=== PATIENT | female | born 1970 | race Caucasian/White ===

== ENCOUNTER 2023-01-06 08:05 | Emergency (ER) | payer MEDICAID, SELFPAY ==
--- NOTE | ~2023-01-06 | CT_ITS ---
EXAMINATION: CT ankle RT wo con DATE: 01/06/2023 09:20 INDICATION: Right ankle pain. TECHNIQUE: Computed tomography (CT) of the right ankle was performed without intravenous contrast. Au tomated exposure control and iterative reconstruction technique were employed. The dose-length produc t was 371.99 mGy-cm. COMPARISON: Right ankle radiographs 01/06/2023 FINDINGS: Bone alignment is normal. There is a nondisplaced chip fracture of lateral process of talus . There is mild midfoot osteoarthritis. There is mild ankle joint osteoarthritis. There are enthesoph ytes of distal fibula at the attachment of the anterior and posterior tibiofibular ligaments. There i s enlargement of the groove for the peroneal tendons in distal fibula with osteophytes. Peroneus long us tendon is enlarged, consistent with partial tear. Achilles tendon is enlarged. There are enthesoph ytes at the posterior and plantar aspects of calcaneal tuberosity. 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 IMPRESSION: 1. Nondisplaced chip fracture of lateral process of talus. 2. Mild polyarticular osteoarthritis. 3. Partial tear of peroneus longus tendon. 4. Kim deformity. Reviewed, dictated and finalized at location A. 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
--- NOTE | ~2023-01-06 | XR_ITS ---
EXAMINATION: XR ankle RT min 3V DATE: 01/06/2023 08:31 INDICATION: Lateral right ankle pain. TECHNIQUE: 4 views of right ankle were obtained. COMPARISON: None. FINDINGS: There is a possible nondisplaced fracture of posterior aspect of lateral malleolus seen on one view. There is a possible nondisplaced fracture of lateral process of talus seen on one view. The re is mild midfoot osteoarthritis. There are enthesophytes at the posterior and plantar aspects of ca lcaneal tuberosity. There is soft tissue swelling posterior to calcaneus at the Achilles attachment ( Kim deformity). Ankle soft tissue swelling is noted. IMPRESSION: 1. Possible nondisplaced fracture of posterior aspect of lateral malleolus. Possible nondisplaced fra cture of lateral process of talus. Consider CT. 2. Kim deformity. 3. Mild polyarticular osteoarthritis. Reviewed, dictated and finalized at location A. 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 Possible nondisplaced fracture of posterior aspect of lateral malleolus. Pos sible nondisplaced fracture of lateral process of talus. Consider CT. 2. Kim deformity. 3. Mild polyarticular osteoarthritis.
[2023-01-06 08:05] VITALS: BP 155/102; PULSE 96; RESP 18; TEMP 36.7; O2SAT 99
[2023-01-06 08:12] VITALS: BP 155/102; PULSE 96; RESP 18; TEMP 36.7; O2SAT 99
--- NOTE | 2023-01-06 08:26 | ED.GENADULT ---
HPI - General Adult General Chief complaint: Extremity Injury, Lower Stated complaint: fall right ankle pain Time Seen by Provider: 01/06/23 08:21 History of Present Illness HPI narrative: The patient is a 52-year-old woman who fell down approximately 4 steps yesterday, resulting in pain in the right lateral aspect of her ankle. She has been ambulatory and weight-bearing but the pain is increased. She has taken Tylenol, last dose 3:00 a.m. this morning, 01/06/2023. No other injuries or other complaints. No loss of consciousness. No nausea vomiting. No sensory or motor deficits. No headache. No neck pain. No back pain. Comorbidities include hypertension and a prior [place]. She takes no medications at present Related Data Allergies Allergy/AdvReac Type Severity Reaction Status Date / Time diphenhydramine Allergy Stopped Verified 01/06/23 08:18 [From Benadryl] Breathing Review of Systems Review of Systems: All systems reviewed & are unremarkable except as noted in HPI and below Constitutional: Constitutional: Reports no additional constitutional complaints, Denies anorexia, Denies body ache(s), Denies chills, Denies excessive sweating, Denies fatigue, Denies fever(s), Denies frequent falls, Denies headache(s), Denies malaise and Denies poor appetite Eyes: Eyes: Reports no additional eye complaints, Denies blurry vision, Denies change in vision, Denies irritation, Denies itchy eyes and Denies photophobia ENT: Reports system reviewed and no additional complaints, except as documented, Reports Normal hearing present, Denies change in voice, Denies dysphagia, Denies vertigo, Denies dizziness, Denies ear discharge, Denies headache(s), Denies hearing loss, Denies hoarseness, Denies nasal congestion, Denies neck pain, Denies sinus pressure, Denies sore throat and Denies throat swelling Cardiovascular: Cardiovascular: Reports no additional cardiovascular complaints, Denies chest pain, Denies syncope, Denies rapid heart rate, Denies irregular heart rhythm, Denies leg edema, Denies dyspnea and Denies slow heart rate Respiratory: Respiratory: Reports no additional respiratory complaints, Denies cough, Denies dyspnea, Denies stridor and Denies wheezing Gastrointestinal: Gastrointestinal: Reports no additional gastrointestinal complaints, Denies abdominal pain, Denies melena, Denies hematochezia, Denies dysphagia, Denies diarrhea, Denies nausea and Denies vomiting Genitourinary: Genitourinary: Denies hematuria, Denies urinary frequency, Denies dysuria, Denies flank pain and Denies urinary urgency Musculoskeletal: Musculoskeletal: Reports no additional musculoskeletal complaints, Reports abnormal gait, Denies back pain, Denies myalgias, Reports arthralgias ( right ankle), Reports joint swelling ( right ankle), Denies limited range of motion, Denies muscle cramps, Denies muscle weakness, Denies neck pain and Denies numbness Integumentary/Breasts: Skin/Breast: Reports system reviewed and no additional complaints, except as docu, Denies breast pain, Denies change in pigmentation, Denies pruritus, Denies erythema and Denies wounds Neurologic: Reports system reviewed and no additional complaints, except as documented, Reports Normal hearing present, Denies Abnormal speech present, Denies abnormal gait, Denies confusion, Denies vertigo, Denies dizziness, Denies syncope, Denies frequent falls, Denies headache(s), Denies focal weakness, Denies numbness and Denies paresthesias Psychiatric: Psychiatric: Reports no additional psychiatric complaints and Denies confusion Endocrine: Endocrine: Reports no additional endocrine complaints, Denies cold intolerance, Denies excessive sweating, Denies fatigue and Denies heat intolerance Hematologic/Lymphatic: Hematologic/Lymphatic: Reports no additional hematologic/lymphatic complaints, Denies easy bleeding and Denies easy bruising Allergic/Immunologic: Allergic/Immunologic: Reports no additional allergic/immunologic comp
[2023-01-06] MEDS: ACETAMINOPHEN 500 MG TABLET 1000 MG PO (08:34)
[2023-01-06] MEDS: IBUPROFEN 400 MG TABLET 800 MG PO (08:35)
[2023-01-06 10:23] VITALS: BP 136/96; PULSE 72; RESP 16; O2SAT 97
[2023-01-06 10:58] VITALS: BP 136/96; PULSE 72; RESP 16; TEMP 36.7; O2SAT 97
== END 2023-01-06 11:00 | disposition home or self-care (01) ==
LOC: CHSED 08:55
PROVIDERS: Emergency Provider Emergency Medicine
DX: S92.144A Nondisplaced dome fracture of right talus, initial encounter for closed fracture (principal); S93.401A Sprain of unspecified ligament of right ankle, initial encounter; W10.9XXA Fall (on) (from) unspecified stairs and steps, initial encounter
CPT/HCPCS: 73610; 73700; 99284; A9270

== ENCOUNTER 2023-03-24 17:20 | Emergency (ER) | payer MEDICAID, SELFPAY ==
[2023-03-24 17:26] VITALS: BP 151/100; PULSE 91; RESP 18; TEMP 36.6; O2SAT 99
[2023-03-24 17:34] VITALS: O2SAT 99
--- NOTE | 2023-03-24 17:50 | ED.URI ---
HPI - URI/Sore Throat General Chief Complaint: Upper Respiratory Infection Stated Complaint: SOB/Cough Time Seen by Provider: 03/24/23 17:23 Source: patient and RN notes reviewed Mode of arrival: ambulatory Limitations: no limitations History of Present Illness HPI Narrative: Patient states she had some cough about 2 and half weeks ago and that seemed to resolve. Then 2 days ago she was having some nausea vomiting and that cleared up and she was fine yesterday. Today she had cough began again and had a significant coughing spell and that at the time caused her to feel short of breath and panic because she thought she was going to pass out from the coughing. Since then it is completely resolved and she feels back to baseline. She has no other symptoms. MD elicited complaint: cough Onset (ago): day(s) (2) Consistency: constant Severity: moderate Description of mucous: clear Able to tolerate fluids by mouth: Yes Relieving factors: nothing Associated symptoms: nausea and vomiting (2 days ago) Related Data Home Medications Medication Instructions Recorded Confirmed amlodipine 5 mg tablet 5 mg PO DAILY 03/24/23 03/24/23 Allergies Allergy/AdvReac Type Severity Reaction Status Date / Time diphenhydramine Allergy Stopped Verified 03/24/23 17:35 [From Benadryl] Breathing Review of Systems Constitutional: Constitutional: Denies chills and Denies fever(s) ENT: Denies dizziness and Denies nasal congestion Gastrointestinal: Gastrointestinal: Denies diarrhea Musculoskeletal: Musculoskeletal: Denies myalgias Neurologic: Denies headache(s) Exam Const: General: healthy appearing and no acute distress Nutritional Appearance: well nourished and obese Orientation/consciousness: patient oriented x3 Limitations: no limitations Other: Female tech in room during examination. HENMT: Head: normal to inspection Ears: external ears normal Face/Nose/Sinus: Normal external nose present Face and sinus: normal facial exam Mouth: Yes moist mucous membranes Eyes: Conjunctivae: conjunctivae normal Pupils: Equal, round and reactive pupils present EOM: EOMs intact bilaterally Neck: Neck: normal visual inspection Resp: Effort & Inspection: normal respiratory effort Auscultation: clear to auscultation bilaterally Cardio: Rate: regular rate Rhythm: regular rhythm GI: GI Palp: Yes Soft to palpation and No Tenderness to palpation present (GI) Auscultation: normal bowel sounds Back/Spine/Pelvis: Cervical Spine: cervical ROM normal Thoracic/Lumbar Spine: thoraco-lumbar ROM normal Skin: General skin exam: normal color Rashes: no rashes Neuro: General: patient oriented x3, moves all extremities, no focal motor deficits and CN's II-XI intact bilaterally Speech: normal speech Gait exam (Neuro): Normal gait present Extrem: General: normal to inspection and no clubbing, cyanosis or edema Psych: Mental Status: mental status grossly normal Affect: normal affect Attitude: cooperative Course Vital Signs Vital signs: Vital Signs Temperature 36.6 C 03/24/23 17:26 Pulse Rate 91 03/24/23 17:26 Respiratory Rate 18 03/24/23 17:26 Blood Pressure 151/100 H 03/24/23 17:26 Pulse Oximetry 99 03/24/23 17:26 Oxygen Delivery Room Air 03/24/23 17:26 Temperature 36.6 C 03/24/23 17:26 Pulse Rate 91 03/24/23 17:26 Respiratory Rate 18 03/24/23 17:26 Blood Pressure 151/100 H 03/24/23 17:26 Pulse Oximetry 99 03/24/23 17:34 Oxygen Delivery Room Air 03/24/23 17:34 MDM - URI/Sore Throat Differential Diagnosis Differential diagnosis: Likely upper respiratory infection, viral infection, bronchitis, influenza and other ( COVID) Lab Data Labs: Lab Results 03/24/23 Range/Units 17:23 Influenza A (RT-PCR) Pending Influenza B (RT-PCR) Pending Discharge Plan Discharge Clinical Impression: Upper respiratory infection Qualifiers: URI type: acute nasopharyngitis (co
--- NOTE | 2023-03-24 17:58 | PC.NURSE ---
accompanied dr with patient assessment
[2023-03-24 18:08] LABS: Influenza A QL RT-PCR Negative (Negative); Influenza B QL RT-PCR Negative (Negative); SARS-CoV-2 RNA PCR Negative (Negative)
[2023-03-24 18:20] VITALS: BP 156/98; PULSE 86; RESP 20; TEMP 36.9; O2SAT 99
== END 2023-03-24 18:21 | disposition home or self-care (01) ==
PROVIDERS: Emergency Provider Emergency Medicine
DX: J00 Acute nasopharyngitis [common cold] (principal); Z20.822 Contact with and (suspected) exposure to COVID-19
CPT/HCPCS: 87636; 99283

== ENCOUNTER 2023-03-29 14:20 | Outpatient (CLI) | payer OTHER, SELFPAY ==
[2023-03-29 14:32] LABS: Basophils Absolute Auto 0.05 K/mm3 (0.00-0.10); Basophils Percent Auto 0.6 % (0.0-1.0); Eosinophils Absolute Auto 0.17 K/mm3 (0.02-0.50); Eosinophils Percent Auto 2.2 % (1.0-6.0); Hematocrit 40.1 % (35.0-49.0); Hemoglobin 13.4 g/dL (12.0-15.0); Immature Granulocyte Absolute 0.04 K/mm3 (0.00-0.00); Immature Granulocyte Percent A 0.5 % (0.0-0.0); Lymphocytes Absolute Auto 2.07 K/mm3 (1.10-4.50); Lymphocytes Percent Auto 26.7 % (18.0-42.0); Mean Corpuscular HGB Conc 33.4 g/dL (32.0-36.0); Mean Corpuscular Hemoglobin 29.2 pg (27.0-31.0); Mean Corpuscular Volume 87.4 fL (78.0-102.0); Mean Platelet Volume 9.8 fl (9.2-11.8); Monocytes Absolute Auto 0.47 K/mm3 (0.10-0.90); Monocytes Percent Auto 6.1 % (2.0-11.0); Neutrophils Absolute Auto 4.9 K/mm3 (1.7-7.2); Neutrophils Percent Auto 63.9 % (50.0-70.0); Platelet Count Result 270 K/mm3 (150-420); Red Blood Count 4.59 M/mm3 (4.20-5.40); Red Cell Distribution Width 12.9 % (11.6-14.4); White Blood Count 7.7 K/mm3 (4.8-10.8)
[2023-03-29 15:24] LABS: Alanine Aminotransferase 31 U/L (14-59); Albumin Level 3.4 g/dL (3.4-5.0); Alkaline Phosphatase 117 U/L (46-116); Anion Gap 10 mmol/L (8-16); Aspartate Amino Transferase 20 U/L (15-37); Bilirubin,Total 0.6 mg/dL (0.00-1.00); Blood Urea Nitrogen 14 mg/dL (7-18); Calcium 8.6 mg/dL (8.5-10.1); Carbon Dioxide 28 mmol/L (21-32); Chloride 103 mmol/L (98-108); Cholesterol 183 mg/dL (0-200); Estimated Glomerular Filt Rate 56; Free T4 Free Thyroxine 1.08 ng/dL (0.76-1.46); Glucose 104 mg/dL (70-99); HDL Direct 43 mg/dL (40-60); LDL Cholesterol Calculated 113 mg/dL (<130); Osmolality Calculated 292 mOsm/kg (285-295); Potassium 3.7 mmol/L (3.5-5.1); Sodium 141 mmol/L (136-145); Thyroid Stimulating Hormone 2.03 uIU/mL (0.36-3.74); Triglycerides 133 mg/dL (0-150)
[2023-04-02 19:24] LABS: Vitamin D 25 Hydroxy 8 ng/mL (30-100)
== END 2023-03-29 14:21 | disposition home or self-care (01) ==
LOC: CHSLAB 14:21
PROVIDERS: PCP Nurse Practitioner Family; Visit Provider Nurse Practitioner Family
DX: F41.9 Anxiety disorder, unspecified (principal); F32.A Depression, unspecified; I10 Essential (primary) hypertension; Z79.899 Other long term (current) drug therapy
CPT/HCPCS: 36415; 80053; 80061; 82306; 84439; 84443; 85025

== ENCOUNTER 2023-04-11 14:07 | Outpatient (CLI) | payer OTHER, SELFPAY ==
--- NOTE | ~2023-04-11 | MM_ITS ---
EXAMINATION: MM screening [facility] BI w jabari HISTORY: Baseline screening mammogram TECHNIQUE: Craniocaudal and mediolateral oblique 3-D tomosynthesis images were obtained and synthetic 2-D images were generated. CAD analysis was submitted and interpreted. COMPARISON: None, baseline BREAST PARENCHYMAL COMPOSITION: The breasts are almost entirely fatty. FINDINGS: RIGHT BREAST: There is a possible mass in the anterior third of the upper inner breast approximately 4 cm from the nipple. LEFT BREAST: No suspicious mass, calcification, or architectural distortion are identified to suggest malignancy. IMPRESSION: 1. Possible right breast mass. 2. Additional mammographic views and possible breast ultrasound are recommended to evaluate the possi ble right breast mass and establish a baseline given that this is the first mammographic examination. BI-RADS Category 0: Incomplete: Needs additional imaging evaluation. Reviewed, dictated and finalized at location A. IMPRESSION: 1. Possible right breast mass. 2. Additional mammographic views and possible breast ultrasound are recommended to evaluate the possible right breast mass and establish a baseline given that this is the first mammographic examination. BI-RADS Category 0: Incomplete: Needs additional imaging evaluation.
== END 2023-04-11 14:08 | disposition home or self-care (01) ==
LOC: CHSIMG 14:09
PROVIDERS: PCP Nurse Practitioner Family; Visit Provider Nurse Practitioner Family
DX: Z12.31 Encounter for screening mammogram for malignant neoplasm of breast (principal); R92.8 Other abnormal and inconclusive findings on diagnostic imaging of breast
CPT/HCPCS: 77063; 77067

== ENCOUNTER 2023-04-18 08:50 | Outpatient (CLI) | payer OTHER, SELFPAY ==
--- NOTE | ~2023-04-18 | MMUS_ITS ---
EXAMINATION: MM diagnostic gabriele RT w jabari, US breast RT limited HISTORY: Possible right breast mass on screening mammogram TECHNIQUE: Additional 3-D tomosynthesis images of the right breast were performed and synthetic 2-D i mages were generated. CAD analysis was submitted and interpreted. High resolution limited right breas t ultrasound was performed. COMPARISON: 04/11/2023 FINDINGS: MAMMOGRAPHIC FINDINGS: There is a 3 mm low-density mass with indistinct margins in the middle third of the upper breast at t he 12:00 location, 5 cm from the nipple. No suspicious calcification or architectural distortion are identified. ULTRASOUND: There is no evidence of focal abnormal solid or cystic mass in the vicinity of the mammographic findi ng in question. IMPRESSION: 1. Probably benign right breast mass. 2. Recommend 6 month follow-up right diagnostic mammogram and possible ultrasound. BI-RADS category 3, probably benign findings. Reviewed, dictated and finalized at location A. IMPRESSION: 1. Probably benign right breast mass. 2. Recommend 6 month follow-up right diagnostic mammogram and possible ultrasou nd. BI-RADS category 3, probably benign findings.
== END 2023-04-18 08:51 | disposition home or self-care (01) ==
LOC: CHSIMG 08:51
PROVIDERS: PCP Nurse Practitioner Family; Visit Provider Nurse Practitioner Family
DX: R92.8 Other abnormal and inconclusive findings on diagnostic imaging of breast (principal); Z87.898 Personal history of other specified conditions
CPT/HCPCS: 76642; 77061; 77065; G0279

== ENCOUNTER 2023-04-21 16:08 | Emergency (ER) | payer OTHER, SELFPAY ==
--- NOTE | ~2023-04-21 | XR_ITS ---
EXAMINATION: XR hip LT 2V w AP pelvis DATE: 04/21/2023 17:34 INDICATION: Left hip pain. TECHNIQUE: An anteroposterior view of the pelvis and 2 views of left hip were obtained. COMPARISON: None. FINDINGS: There is normal. No fracture. There is mild osteoarthritis of the hips. There is at least m ild lumbar spondylosis. IMPRESSION: 1. Mild osteoarthritis of the hips. Reviewed, dictated and finalized at location E.
[2023-04-21 16:11] VITALS: BP 149/97; PULSE 92; RESP 18; TEMP 36.6; O2SAT 97
--- NOTE | 2023-04-21 16:11 | ED.GENADULT ---
HPI - General Adult General Chief complaint: Extremity Injury, Lower Stated complaint: left hip pain Time Seen by Provider: 04/21/23 16:10 History of Present Illness HPI narrative: the patient is a 52-year-old woman with history of hypertension migraine headaches anxiety depression myocardial infarction mild chronic kidney disease, and osteoarthritis. Last laboratory data from 03/29/2023 reveal a normal BUN and creatinine however. Did have a closed fracture of the right ankle that was treated with casting. For the last week, the patient has had pain in the left posterior hip region, radiating to the left posterior back and anteriorly to the left hip, worse with raising the left leg or ambulation. No paresthesias or sensory deficits down the left lower extremity. No direct trauma to the left hip or back. No heavy lifting. No falls. No twists or turns. No previous similar history. No pain in the lower back or neck. No numbness or tingling in the buttocks region. No saddle anesthesia. Related Data Home Medications Medication Instructions Recorded Confirmed sertraline 25 mg tablet 50 mg PO DAILY 04/21/23 Allergies Allergy/AdvReac Type Severity Reaction Status Date / Time diphenhydramine Allergy Stopped Verified 04/21/23 17:03 [From Benadryl] Breathing Review of Systems Review of Systems: All systems reviewed & are unremarkable except as noted in HPI and below Constitutional: Constitutional: Denies chills, Denies excessive sweating, Denies fatigue, Denies fever(s), Denies headache(s) and Denies weakness Eyes: Eyes: Denies change in vision and Denies photophobia ENT: Denies dysphagia, Denies dizziness, Denies headache(s), Denies lip swelling, Denies nasal congestion, Denies sore throat and Denies tongue swelling Cardiovascular: Cardiovascular: Denies chest pain, Denies syncope, Denies rapid heart rate and Denies dyspnea Respiratory: Respiratory: Denies cough, Denies dyspnea and Denies wheezing Gastrointestinal: Gastrointestinal: Denies abdominal pain, Denies constipation, Denies dysphagia, Denies diarrhea, Denies nausea and Denies vomiting Genitourinary: Genitourinary: Denies hematuria, Denies urinary frequency, Denies dysuria and Denies urinary urgency Musculoskeletal: Musculoskeletal: Denies back pain, Denies myalgias, Reports arthralgias ( Left hip), Denies joint swelling and Denies numbness Integumentary/Breasts: Skin/Breast: Denies pruritus, Denies erythema and Denies rash Neurologic: Denies confusion, Denies dizziness, Denies syncope, Denies headache(s), Denies focal weakness, Denies numbness and Denies weakness Psychiatric: Psychiatric: Denies anxiety and Denies confusion Endocrine: Endocrine: Denies excessive sweating and Denies fatigue Hematologic/Lymphatic: Hematologic/Lymphatic: Denies easy bleeding and Denies easy bruising Allergic/Immunologic: Allergic/Immunologic: Denies lip swelling, Denies tongue swelling and Denies wheezing PMFSH Past Medical History Medical History Anxiety and depression History of heart attack 2009 HTN (hypertension) Migraine Social History Social History Smoking status: Never smoker Exam Const: General: healthy appearing, no acute distress, alert and well nourished Nutritional Appearance: well nourished Orientation/consciousness: patient oriented x3 Limitations: no limitations HENMT: Head: normal to inspection Ears: external ears normal Face/Nose/Sinus: normal facial exam Face and sinus: normal facial exam Mouth: Yes moist mucous membranes Throat: posterior oropharynx normal Eyes: Conjunctivae: conjunctivae normal Pupils: Equal, round and reactive pupils present EOM: EOMs intact bilaterally Neck: Neck: normal visual inspection and no meningeal signs Chest: Chest palpation & inspection: normal inspection of the chest and no tenderness Re
[2023-04-21] MEDS: KETOROLAC (*BKC) 60 MG/2 ML VIAL IM (17:06)
[2023-04-21] MEDS: traMADol HCL (*CRX) 50 MG TABLET PO (17:06)
[2023-04-21] MEDS: ORPHENADRINE CITRATE 30 MG/ML 2 ML VIAL 60 MG IM (17:07)
[2023-04-21 18:15] VITALS: BP 140/80; PULSE 78; RESP 20; TEMP 36.8; O2SAT 97
== END 2023-04-21 18:21 | disposition home or self-care (01) ==
PROVIDERS: Emergency Provider Emergency Medicine; PCP Nurse Practitioner Family
DX: M25.552 Pain in left hip (principal); M16.12 Unilateral primary osteoarthritis, left hip; I10 Essential (primary) hypertension; F41.8 Other specified anxiety disorders; I25.2 Old myocardial infarction; Z79.51 Long term (current) use of inhaled steroids
CPT/HCPCS: 73502; 96372; 99284; A9270; J1885; J2360

== ENCOUNTER 2023-04-27 15:19 | Outpatient (CLI) | payer OTHER, SELFPAY ==
[2023-04-30 05:22] LABS: Vitamin D 25 Hydroxy 30 ng/mL (30-100)
== END 2023-04-27 15:20 | disposition home or self-care (01) ==
LOC: CHSLAB 15:20
PROVIDERS: PCP Nurse Practitioner Family; Visit Provider Nurse Practitioner Family
DX: M25.50 Pain in unspecified joint (principal)
CPT/HCPCS: 36415; 82306

== ENCOUNTER 2023-06-29 16:20 | Outpatient (CLI) | payer SELFPAY ==
[2023-07-03 09:48] LABS: TB Skin Test Interpretation Unable to Read (Negative); TB Skin Test Site Left Arm
== END 2023-06-29 16:21 | disposition home or self-care (01) ==
LOC: CHSLAB 16:22
PROVIDERS: PCP Nurse Practitioner Family; Visit Provider Nurse Practitioner Family
DX: Z02.1 Encounter for pre-employment examination (principal)
CPT/HCPCS: 36415; 86580

== ENCOUNTER 2023-08-17 20:54 | Emergency (ER) | payer OTHER, SELFPAY ==
--- NOTE | ~2023-08-17 | XR_ITS ---
XR chest 1V portable DATE: 08/17/2023 21:49 INDICATION: Chest pain TECHNIQUE: Portable upright AP chest on 08/17/2023 at 2144 COMPARISON: None FINDINGS: Normal heart size. No hilar or mediastinal enlargement. No pulmonary infiltrate or consolid ation, pleural effusion or pulmonary vascular congestion or pneumothorax. Surgical clips overlie the right upper quadrant, consistent with cholecystectomy. Degenerative spurring of the thoracic spine IMPRESSION: No active cardiopulmonary disease Status post cholecystectomy Reviewed, dictated and finalized at location A.
--- NOTE | 2023-08-17 20:59 | ECG_ITS ---
Measurements Intervals [place] Rate: 83 P: 39 ND: 157 QRS: 44 QRSD: 112 T: 34 QT: 385 QTc: 453 Interpretive Statements SINUS RHYTHM BORDERLINE ECG NO PREVIOUS ECG AVAILABLE FOR COMPARISON Electronically Signed On 08-18-2023 7:54:34 CDT by Dereje Cabello D.O.
[2023-08-17 21:00] VITALS: BP 161/89; PULSE 85; PULSE 86; RESP 18; TEMP 36.7; O2SAT 100
[2023-08-17] MEDS: ASPIRIN 81 MG CHEWABLE TABLET 324 MG PO (21:15)
[2023-08-17 21:27] VITALS: BP 162/88; PULSE 83; RESP 16; O2SAT 100
[2023-08-17] MEDS: NITROGLYCERIN SL 0.4 MG TABLET SUBLINGUAL (21:28)
[2023-08-17 21:33] VITALS: BP 95/57; PULSE 61; RESP 18; O2SAT 99
[2023-08-17] MEDS: ONDANSETRON INJ 4 MG/2 ML VIAL IV PUSH (21:34)
[2023-08-17 21:35] LABS: Basophils Absolute Auto 0.04 K/mm3 (0.00-0.10); Basophils Percent Auto 0.5 % (0.0-1.0); Eosinophils Absolute Auto 0.12 K/mm3 (0.02-0.50); Eosinophils Percent Auto 1.6 % (1.0-6.0); Hematocrit 42.3 % (35.0-49.0); Hemoglobin 13.9 g/dL (12.0-15.0); Immature Granulocyte Absolute 0.04 K/mm3 (0.00-0.00); Immature Granulocyte Percent A 0.5 % (0.0-0.0); Immature Platelet Fraction Pct 3.8 % (1.0-7.0); Lymphocytes Absolute Auto 2.44 K/mm3 (1.10-4.50); Lymphocytes Percent Auto 31.6 % (18.0-42.0); Mean Corpuscular HGB Conc 32.9 g/dL (32.0-36.0); Mean Corpuscular Hemoglobin 29.9 pg (27.0-31.0); Monocytes Absolute Auto 0.44 K/mm3 (0.10-0.90); Monocytes Percent Auto 5.7 % (2.0-11.0); Neutrophils Absolute Auto 4.7 K/mm3 (1.7-7.2); Neutrophils Percent Auto 60.1 % (50.0-70.0); Red Blood Count 4.65 M/mm3 (4.20-5.40); Red Cell Distribution Width 12.4 % (11.6-14.4); White Blood Count 7.7 K/mm3 (4.8-10.8)
[2023-08-17 21:36] LABS: Platelet Count Result 78 K/mm3 (150-420)
[2023-08-17] MEDS: SODIUM CHLORIDE 0.9% IV 1,000 ML 999 ML IV CONT (21:39)
[2023-08-17 21:47] LABS: D Dimer 0.45 mg/L (0.19-0.50); Prothrombin Time 10.9 Seconds (9.50-12.10)
[2023-08-17 21:50] VITALS: BP 146/85; PULSE 71; RESP 16; O2SAT 100
[2023-08-17 21:57] LABS: Alanine Aminotransferase 24 U/L (14-59); Albumin Level 3.4 g/dL (3.4-5.0); Alkaline Phosphatase 134 U/L (46-116); Anion Gap 11 mmol/L (8-16); Aspartate Amino Transferase 22 U/L (15-37); Bilirubin,Total 0.9 mg/dL (0.00-1.00); Blood Urea Nitrogen 16 mg/dL (7-18); Calcium 9.3 mg/dL (8.5-10.1); Carbon Dioxide 22 mmol/L (21-32); Chloride 104 mmol/L (98-108); Estimated Glomerular Filt Rate 58; Glucose 101 mg/dL (70-99); Lipase 25 U/L (16-77); NT Pro B Type Natriuretic Pept 46 pg/mL (0-125); Osmolality Calculated 285 mOsm/kg (285-295); Potassium 4.4 mmol/L (3.5-5.1); Sodium 137 mmol/L (136-145)
[2023-08-17 22:00] LABS: Troponin I < 4.0 ng/L (0.00-60.4)
[2023-08-17 22:32] VITALS: BP 148/85; PULSE 73; RESP 16; O2SAT 98
--- NOTE | 2023-08-17 22:36 | PC.NURSE ---
2235-video game script writer at bedside, pt c/o right arm rash. pt noted to have welted rash to right forearm. pt denies previous allergy to tapes/adhesives. pt ivf completed. iv assessed, flushes without difficulty, pain, swelling. iv remains patent. arm washed with towel. and cool water. video game script writer encouraged pt to use restroom and collect urine sample. pt agrees. pt noted to be ambulatory to and from restroom with steady gait, and without incident.
[2023-08-17 22:55] LABS: Appearance Urine Clear (Clear); Bilirubin Urine Negative (Negative); Blood Urine Negative (Negative); Color Urine Light Yellow (Yellow); Glucose Urine UA Negative (Negative); Ketones Urine Negative (Negative); Leukocyte Esterase Ur 3+ LEU/UL (Negative); Nitrate Urine Negative (Negative); Protein Urine Negative (Negative); Urobilinogen Urine 0.2 mg/dL (0.2-1.0)
[2023-08-17 23:02] LABS: Add Urine Microscopic? YES; Bacteria Urine 1+ /hpf; RBC Urine 0-2 /hpf (0-2); Squamous Epithelial Cell Urine Rare /hpf (Few); WBC Urine 16-20 /hpf (0-3)
[2023-08-17 23:06] VITALS: BP 144/82; PULSE 74; RESP 14; O2SAT 98
--- NOTE | 2023-08-17 23:06 | PC.NURSE ---
2300-underwriter solicitation director at bedside to for chest pain and right arm reassessment. pt denies chest pain/pressure at this time. pt right forearm noted to have decreased welt size/amount. pt denies any additional issues, call light remains in reach. pt daughter remains present at bedside.
[2023-08-17 23:33] LABS: Troponin I < 4.0 ng/L (0.00-60.4)
--- NOTE | 2023-08-17 23:46 | ED.CHESTPAIN ---
HPI - Chest Pain General Chief Complaint: Chest Pain Stated Complaint: chest pain Time Seen by Provider: 08/17/23 20:59 Source: patient and family Mode of arrival: ambulatory Limitations: no limitations History of Present Illness HPI narrative: this is 52-year-old female presented with chest pain that started earlier this afternoon episodic midsternal with nonradiating did have some nausea no shortness of breath no fever chills no cough or congestion. The patient states that she had a prior cardiac catheterization and there was no occlusion that was in 2008. Has a history of high blood pressure no abdominal pain no flank pain does have some dysuria no hematuria. complaint: chest pain and chest discomfort Onset (ago): hour(s) Timing of current episode: episodic Prior episodes: Yes Onset: during rest Pain location: parasternal Pain radiation: none Severity: moderate Pain scale (0-10): 6 Related Data Allergies Allergy/AdvReac Type Severity Reaction Status Date / Time diphenhydramine Allergy Stopped Verified 06/29/23 15:56 [From Benadryl] Breathing Review of Systems Review of Systems: All systems reviewed & are unremarkable except as noted in HPI and below PMFSH Past Medical History Medical History Anxiety and depression History of heart attack 2008 HTN (hypertension) Migraine Social History Social History Smoking status: Never smoker Exam Const: General: cooperative, comfortable, no acute distress and well developed HENMT: Head: normal to inspection Face/Nose/Sinus: Normal external nose present Eyes: General: appearance normal, both eyes and all related structures Chest: Chest palpation & inspection: normal inspection of the chest and normal palpation of entire chest wall Resp: Effort & Inspection: normal respiratory effort and able to speak in complete sentences Auscultation: clear to auscultation bilaterally Cardio: Jugular venous distension: no JVD Palpation: normal PMI Rate: regular rate Rhythm: regular rhythm GI: Inspection: normal to inspection : General: Yes bimanual renal exam normal bilaterally Back/Spine/Pelvis: Back: no CVA tenderness Skin: General skin exam: normal color and no rashes or lesions noted Neuro: General: oriented to person, oriented to place and oriented to time Psych: Appearance: grossly normal Mental Status: mental status grossly normal Course Course Emergency Course: EKG normal sinus rhythm and 2 troponins both were negative and lab work unremarkable did have urinalysis showed that she urinary tract infection. Chest x-ray was reviewed and no acute cardiopulmonary abnormalities. Patient did receive a dose of sublingual nitro which brought her pain level down and currently completely pain-free. Vital Signs Vital signs: Vital Signs Temperature 36.7 C 08/17/23 21:00 Pulse Rate 86 08/17/23 21:00 Respiratory Rate 18 08/17/23 21:00 Blood Pressure 161/89 H 08/17/23 21:00 Pulse Oximetry 100 08/17/23 21:00 Oxygen Delivery Room Air 08/17/23 21:00 Temperature 36.7 C 08/17/23 21:00 Pulse Rate 74 08/17/23 23:06 Respiratory Rate 14 08/17/23 23:06 Blood Pressure 144/82 H 08/17/23 23:06 Pulse Oximetry 98 08/17/23 23:06 Oxygen Delivery Room Air 08/17/23 23:06 MDM - Chest Pain Lab Data 08/17/23 21:28 08/17/23 21:28 Labs: Lab Results 08/17/23 08/17/23 08/17/23 Range/Units 21:28 22:50 23:05 WBC 7.7 (4.8-10.8) K/mm3 RBC 4.65 (4.20-5.40) M/mm3 Hgb 13.9 (12.0-15.0) g/dL Hct 42.3 (35.0-49.0) % MCV 91.0 (78.0-102.0) fL MCH 29.9 (27.0-31.0) pg MCHC 32.9 (32.0-36.0) g/dL RDW 12.4 (11.6-14.4) % Plt Count 78 L (150-420) K/mm3 MPV 11.0 (9.2-11.8) fl Immature Gran % (Auto) 0.5 H (0.0-0.0) % Neut % (Auto) 60.1 (50.0-
[2023-08-18] VITALS: BP 142/86; PULSE 76; RESP 16; O2SAT 96
[2023-08-18] MEDS: NITROFURANTOIN MONOHYD MACROCR 100 MG CAP PO (00:04)
--- NOTE | 2023-08-20 13:40 | PC.NURSE ---
final urine culture report reviewed. no growth. no change in plan of care
== END 2023-08-18 00:10 | disposition home or self-care (01) ==
PROVIDERS: Emergency Provider Emergency Medicine; PCP Nurse Practitioner Family
DX: R07.9 Chest pain, unspecified (principal); N39.0 Urinary tract infection, site not specified; I10 Essential (primary) hypertension; I25.2 Old myocardial infarction
CPT/HCPCS: 36415; 71045; 80053; 81001; 83690; 83880; 84484; 85025; 85055; 85380; 85610; 85730; 87086; 93005; 96361; 96374; 99284; A9270; J2405; J7030

== ENCOUNTER 2023-10-27 08:45 | Outpatient (CLI) | payer OTHER, SELFPAY ==
--- NOTE | ~2023-10-27 | MM_ITS ---
EXAMINATION: MM diagnostic gabriele RT w jabari HISTORY: Six-month follow-up of 3 mm low-density mass with indistinct margins in the middle third of the upper breast 12:00 location TECHNIQUE: ML, MLO and CC 3-D tomosynthesis images of the right breast were performed and synthetic 2 -D images were generated. CAD analysis was submitted and interpreted. COMPARISON: 04/18/2023 diagnostic right mammogram 04/11/2023ilateral screening mammogram BREAST PARENCHYMAL COMPOSITION: The breasts are almost entirely fatty. FINDINGS: There is no significant change of a small approximately 3-4 mm opacity in the mid to upper inner right breast since 04/11/2023. The margins appear circumscribed. There appears to be some centra l fatty density. There is no sonographic correlate on 04/18/2023. This may be a small intramammary lym ph node or other probably benign process. Six-month follow-up right diagnostic mammogram with interva l 12 month screening left mammogram at the same time is recommended. IMPRESSION: 1. Probably benign right breast finding 2. Bilateral mammogram is recommended in 6 months BI-RADS category 3, probably benign findings. Reviewed, dictated and finalized at location A. 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
== END 2023-10-27 08:46 | disposition home or self-care (01) ==
LOC: CHSIMG 08:46
PROVIDERS: PCP Nurse Practitioner Family; Visit Provider Nurse Practitioner Family
DX: R92.8 Other abnormal and inconclusive findings on diagnostic imaging of breast (principal); N63.10 Unspecified lump in the right breast, unspecified quadrant
CPT/HCPCS: 77061; 77065; G0279

== ENCOUNTER 2023-12-26 11:13 | Outpatient (CLI) | payer OTHER, SELFPAY ==
[2023-12-26 11:49] LABS: Basophils Absolute Auto 0.05 K/mm3 (0.00-0.10); Basophils Percent Auto 0.5 % (0.0-1.0); Eosinophils Absolute Auto 0.14 K/mm3 (0.02-0.50); Eosinophils Percent Auto 1.4 % (1.0-6.0); Hematocrit 46.7 % (35.0-49.0); Hemoglobin 14.9 g/dL (12.0-15.0); Immature Granulocyte Absolute 0.03 K/mm3 (0.00-0.00); Immature Granulocyte Percent A 0.3 % (0.0-0.0); Lymphocytes Absolute Auto 2.54 K/mm3 (1.10-4.50); Lymphocytes Percent Auto 24.5 % (18.0-42.0); Mean Corpuscular HGB Conc 31.9 g/dL (32.0-36.0); Mean Corpuscular Hemoglobin 28.5 pg (27.0-31.0); Mean Corpuscular Volume 89.3 fL (78.0-102.0); Monocytes Absolute Auto 0.64 K/mm3 (0.10-0.90); Monocytes Percent Auto 6.2 % (2.0-11.0); Neutrophils Percent Auto 67.1 % (50.0-70.0); Platelet Count Result 259 K/mm3 (150-420); Red Blood Count 5.23 M/mm3 (4.20-5.40); Red Cell Distribution Width 12.5 % (11.6-14.4); White Blood Count 10.4 K/mm3 (4.8-10.8)
== END 2023-12-26 11:14 | disposition home or self-care (01) ==
LOC: CHSLAB 11:14
PROVIDERS: PCP Nurse Practitioner Family; Visit Provider Nurse Practitioner Family
DX: Z00.00 Encounter for general adult medical examination without abnormal findings (principal)
CPT/HCPCS: 36415; 80053; 80061; 84443; 85025

== ENCOUNTER 2024-01-17 08:47 | Outpatient (CLI) | payer OTHER, SELFPAY ==
--- NOTE | ~2024-01-17 | XR_ITS ---
Left Knee Technique: AP, lateral, and sunrise views were obtained. Clinical History: Pain Findings: No fracture or dislocation is seen. Osseous alignment is anatomic. Joint spaces are preserv ed without degenerative or erosive change. Soft tissues are unremarkable. No joint effusion is seen. Impression: Unremarkable left knee radiographs. Reviewed, dictated and finalized at location . PROCESS OPERATOR Impression: Unremarkable left knee radiographs.
[2024-01-17 10:49] LABS: Basophils Absolute Auto 0.04 K/mm3 (0.00-0.10); Basophils Percent Auto 0.5 % (0.0-1.0); Eosinophils Absolute Auto 0.11 K/mm3 (0.02-0.50); Eosinophils Percent Auto 1.4 % (1.0-6.0); Hematocrit 44.3 % (35.0-49.0); Hemoglobin 14.7 g/dL (12.0-15.0); Immature Granulocyte Absolute 0.03 K/mm3 (0.00-0.00); Immature Granulocyte Percent A 0.4 % (0.0-0.0); Lymphocytes Absolute Auto 2.18 K/mm3 (1.10-4.50); Lymphocytes Percent Auto 27.8 % (18.0-42.0); Mean Corpuscular HGB Conc 33.2 g/dL (32.0-36.0); Mean Corpuscular Hemoglobin 28.6 pg (27.0-31.0); Mean Corpuscular Volume 86.2 fL (78.0-102.0); Mean Platelet Volume 9.8 fl (9.2-11.8); Monocytes Absolute Auto 0.42 K/mm3 (0.10-0.90); Monocytes Percent Auto 5.4 % (2.0-11.0); Neutrophils Absolute Auto 5.1 K/mm3 (1.7-7.2); Neutrophils Percent Auto 64.5 % (50.0-70.0); Platelet Count Result 280 K/mm3 (150-420); Red Blood Count 5.14 M/mm3 (4.20-5.40); Red Cell Distribution Width 12.8 % (11.6-14.4); White Blood Count 7.9 K/mm3 (4.8-10.8)
[2024-01-17 11:43] LABS: Alanine Aminotransferase 38 U/L (14-59); Albumin Level 3.7 g/dL (3.4-5.0); Alkaline Phosphatase 149 U/L (46-116); Anion Gap 10 mmol/L (8-16); Aspartate Amino Transferase 26 U/L (15-37); Bilirubin,Total 0.7 mg/dL (0.00-1.00); Blood Urea Nitrogen 11 mg/dL (7-18); Carbon Dioxide 29 mmol/L (21-32); Chloride 103 mmol/L (98-108); Cholesterol 185 mg/dL (0-200); Estimated Glomerular Filt Rate 55; Free T3 3.18 pg/mL (2.18-3.98); Free T4 Free Thyroxine 1.13 ng/dL (0.76-1.46); Glucose 108 mg/dL (70-99); HDL Direct 51 mg/dL (40-60); LDL Cholesterol Calculated 107 mg/dL (<130); Osmolality Calculated 294 mOsm/kg (285-295); Potassium 4.1 mmol/L (3.5-5.1); Sodium 142 mmol/L (136-145); Thyroid Stimulating Hormone 3.51 uIU/mL (0.36-3.74); Total Protein 7.2 g/dL (6.4-8.2); Triglycerides 135 mg/dL (0-150)
[2024-01-18 11:03] LABS: Hemoglobin A1C 5.3 % (<5.7)
--- NOTE | 2024-01-19 16:01 | P.PCNPFT_ITS ---
PFT Procedure Performed PFT Procedure Performed Spirometry with Pre/Post Bronchodilator Plethysmography (Lung Vol) Diffusing Cap (DLCO) Flow Vol Loop PFT Interpretation DOS: 01/17/2024 REQUESTING: Bj Perry APRN REASON FOR TESTING: Dyspnea PULMONARY FUNCTION TESTS Results are reliable and reproducible. Spirometry: Pre-bronchodilator FEV1 is 2.60 L, 108% predicted, normal. Pre- bronchodilator FVC is 3.20 L, 109% predicted, normal. FEV1/FVC is 81%, normal. After bronchodilator administration, there is a 2% drop in the FEV1 and a 1% increase in the FVC. These are non statistically significant changes. The FEV1/FVC ratio is 79%, normal. Lung volumes: The total lung capacity is 4.00 L, 85%, normal. Residual volume is 0.8 L, 47%, decreased. Low residual volume is a nonspecific finding. RV/TLC is 20%, not elevated. Airway resistance is 7.35, 400% normal. Diffusion: DLCO 21.4, 87% predicted, normal. DLCO/VA is 4.97, 126%, normal. Flow volume loop: Unremarkable. IMPRESSION: This study shows normal spirometry without response to bronchodilator, normal lung volumes and normal diffusion. There are no prior studies for comparison. Geno Cao MD
[2024-01-20 02:03] LABS: Vitamin D 25 Hydroxy 17 ng/mL (30-100)
[2024-02-01 15:57] LABS: Parathyroid Hormone Related Pr 8 pg/mL (11-20)
== END 2024-01-17 08:48 | disposition home or self-care (01) ==
PROVIDERS: PCP Nurse Practitioner Family; Visit Provider Nurse Practitioner Family
DX: Z00.00 Encounter for general adult medical examination without abnormal findings (principal); R53.83 Other fatigue; M25.562 Pain in left knee; E11.9 Type 2 diabetes mellitus without complications; R06.09 Other forms of dyspnea; Z77.22 Contact with and (suspected) exposure to environmental tobacco smoke (acute) (chronic)
CPT/HCPCS: 36415; 73562; 80053; 80061; 82306; 83036; 83519; 84439; 84443; 84481; 85025; 94060; 94726; 94729

== ENCOUNTER 2024-02-12 12:40 | Outpatient (CLI) | payer OTHER, SELFPAY ==
--- NOTE | ~2024-02-12 | DEXA_ITS ---
Bone Density Report Name: MISSY KAYE Age: 53 Sex: Female Ethnicity: White Date of : 1970 Indication: postmenopausal; screening for osteoporosis; rheumatoid arthritis; Referring Provider: EVITA MONTELONGO Study: Bone densitometry was performed. Exam Date: February 12, 2024 Accession number: [id number] Bone Density: Region BMD T-score Z-score Classification AP Spine(L1-L4) 1.112 0.6 1.7 Normal Femoral Neck (Left) 0.790 -0.5 0.5 Normal Total Hip (Left) 1.033 0.7 1.4 Normal Femoral Neck (Right) 0.820 -0.3 0.8 Normal Total Hip (Right) 1.056 0.9 1.6 Normal Femoral Neck Mean 0.805 -0.4 0.7 Normal Total Hip Mean 1.045 0.8 1.5 Normal World Health Organization criteria for BMD impression classify patients as: Normal (T-score at or above -1.0), Osteopenia (T-score between -1.0 and -2.5), or Osteoporosis (T-score at or below -2.5). 10-year Fracture Risk: FRAX not reported because: All T-scores for Spine Total, Hip Total, Femoral Neck at or above -1.0 Clinical Information Provided by Patient: Has rheumatoid arthritis Has used the following medications: Vitamin D Patient maximum height was 63 Menopause Age: 33 No regular weight bearing exercise Does not regularly consume dairy products Drinks caffeinated beverages Onset of menses at age 12 Number of children 3 Impression: The patient has normal bone mass. Discussion: BONE DENSITY IS ABOVE THE MINIMUM DESIRABLE LEVEL AT ALL SKELETAL SITES TESTED. This patient?s bone mineral density is above the minimum desirable level (T-score -1.0 or better) at all sites measured. The patient should follow a healthful lifestyle (good nutrition with adequate calcium and vitamin D, and appropriate weight-bearing exercise). Follow-Up: Consider repeating this study in 5 years or sooner if there is some new clinical indication. Reported by: Dr. Alan López on 02/13/2024 1:40:00 PM. Reviewed, dictated and finalized at location [facility]
== END 2024-02-12 12:41 | disposition home or self-care (01) ==
LOC: CHSIMG 12:41
PROVIDERS: PCP Nurse Practitioner Family; Visit Provider Nurse Practitioner Family
DX: Z78.0 Asymptomatic menopausal state (principal)
CPT/HCPCS: 77080

== ENCOUNTER 2024-03-11 07:52 | Outpatient (CLI) | payer OTHER, SELFPAY ==
--- NOTE | 2024-03-11 08:04 | ECHO_ITS ---
Patient Info Name: Kimberlyn Fulton Age: 53 years : 1970 Gender: Female Ht: 63 in Wt: 201 lbs BSA: 2.05 m2 HR: 75 bpm BP: 170 / 101 mmHg Heart Rhythm: Sinus Rhythm Technical Quality: Fair Exam Date: 03/11/2024 9:03 AM Exam Location: Echo Lab Patient Status: Outpatient Admit Date: 03/11/2024 Staff Ordering Physician: Dereje Cabello DO Government Auditor: Brenda Uribe RDCS Attending Provider: Dereje Cabello DO Referring Physician: Irineo LOVE; Exam Type: CA echo doppler color flow Study Info Indications - other forms of dyspnea Complete two-dimensional, color flow and Doppler transthoracic echocardiogram is performed. Summary 1. Complete two-dimensional, color flow and Doppler transthoracic echocardiogram is performed. 2. Left ventricular chamber dimension is normal. 3. Left ventricular systolic function is normal, estimated at 60-65%. 4. There is mild concentric increased left ventricular wall thickness. 5. The left ventricular diastolic function is grade I diastolic dysfunction. 6. E/e' 9 is minimally elevated. 7. No pulmonary hypertension, estimated pulmonary arterial systolic pressure is 22 mmHg. Left Ventricle E/e' 9 is minimally elevated. Left ventricular chamber dimension is normal. Left ventricular systolic function is normal, estimated at 60-65%. There is mild concentric increased left ventricular wall thickness. The left ventricular diastolic function is grade I diastolic dysfunction. Right Ventricle Right ventricular systolic function is normal and with normal TAPSE 2.4 cm. Right ventricular chamber dimension is normal. Left Atria Left atrial chamber dimension is normal. Right Atria Right atrial chamber dimension is normal. Aortic Valve The aortic valve is trileaflet. There is no aortic valve stenosis. There is no aortic valve regurgitation. Pulmonic Valve There is no pulmonic regurgitation. Mitral Valve There is no mitral valve stenosis. There is no mitral valve regurgitation. Tricuspid Valve There is no tricuspid valve regurgitation. No pulmonary hypertension, estimated pulmonary arterial systolic pressure is 22 mmHg. Pericardium/Pleural There is no pericardial effusion. Inferior Vena Cava Normal inferior vena cava with >50% collapse upon inspiration consistent with normal right atrial pressure, 5 mmHg. Aorta The aortic root size at the sinus of Valsalva is normal. Left Ventricular Outflow Tract Name Value Normal LVOT 2D LVOT Diameter 2.0 cm LVOT Doppler LVOT Peak Velocity 78 cm/s LVOT Peak Gradient 2 mmHg LVOT Mean Gradient 1 mmHg LVOT VTI 23 cm LVOT VTI/AV VTI Ratio 0.7 LVOT Stroke Volume 74 ml Pulmonic Valve Name Value Normal RVOT Doppler RVOT Peak Gradient 1 mmHg PV Doppler
== END 2024-03-11 07:53 | disposition home or self-care (01) ==
LOC: CHSIMG 07:53
PROVIDERS: PCP Nurse Practitioner Family; Visit Provider Internal Medicine Cardiovascular Disease
DX: R06.09 Other forms of dyspnea (principal)
CPT/HCPCS: 93306

== ENCOUNTER 2024-04-15 07:59 | Outpatient (CLI) | payer OTHER, SELFPAY ==
--- NOTE | ~2024-04-15 | MM_ITS ---
EXAMINATION: MM diagnostic gabriele BI w jabari HISTORY: Follow-up right breast asymmetry TECHNIQUE: Additional 3-D tomosynthesis images of the breasts were performed and synthetic 2-D images were generated. CAD analysis was submitted and interpreted. COMPARISON: Comparison to multiple prior studies sequentially, with oldest reviewed study dated 04/11. BREAST PARENCHYMAL COMPOSITION: Not dense: There are scattered areas of fibroglandular density. FINDINGS: There are no suspicious masses, calcifications or architectural distortion in either breast to suggest malignancy. The breasts are stable. IMPRESSION: 1. No evidence for malignancy in either breast. 2. Routine yearly screening mammogram and regular clinical breast examination are recommended. BI-RADS Category 1: Negative Reviewed, dictated and finalized at location A. IMPRESSION: 1. No evidence for malignancy in either breast. 2. Routine yearly screening mammogram and regular clinical breast examination a re recommended. BI-RADS Category 1: Negative
[2024-04-15 23:02] LABS: Magnesium 2.2 mg/dL (1.8-2.4)
[2024-04-15 23:04] LABS: Alanine Aminotransferase 37 U/L (14-59); Albumin Level 3.6 g/dL (3.4-5.0); Alkaline Phosphatase 152 U/L (46-116); Anion Gap 11 mmol/L (4-12); Aspartate Amino Transferase 37 U/L (15-37); Bilirubin,Total 1.4 mg/dL (0.00-1.00); Blood Urea Nitrogen 15 mg/dL (7-18); Carbon Dioxide 26 mmol/L (21-32); Chloride 103 mmol/L (98-108); Estimated Glomerular Filt Rate > 60; Glucose 74 mg/dL (70-99); Osmolality Calculated 289 mOsm/kg (285-295); Potassium 4.9 mmol/L (3.5-5.1); Sodium 140 mmol/L (136-145); Total Protein 7.3 g/dL (6.4-8.2)
[2024-04-19 03:03] LABS: Vitamin D 25 Hydroxy 32 ng/mL (30-100)
[2024-04-25 17:08] LABS: Parathyroid Hormone Related Pr 7 pg/mL (11-20)
== END 2024-04-15 08:00 | disposition home or self-care (01) ==
LOC: CHSIMG 08:00
PROVIDERS: PCP Nurse Practitioner Family; Visit Provider Nurse Practitioner Family
DX: E55.9 Vitamin D deficiency, unspecified (principal); I10 Essential (primary) hypertension; E20.9 Hypoparathyroidism, unspecified; R92.8 Other abnormal and inconclusive findings on diagnostic imaging of breast
CPT/HCPCS: 36415; 77062; 77066; 80053; 82306; 83519; 83735; 87491; 87591; 87624; 88175; G0145; G0279

== ENCOUNTER 2024-05-29 12:30 | Emergency (ER) | payer OTHER, SELFPAY ==
--- NOTE | ~2024-05-29 | XR_ITS ---
EXAMINATION: XR ankle LT min 3V DATE: 05/29/2024 13:28 INDICATION: Generalized left ankle pain post fall TECHNIQUE: Anteroposterior, oblique, mortise, and lateral views of the left ankle were obtained. COMPARISON: None. FINDINGS: Alignment is normal. No fracture. Joint spaces are well maintained. Large Achilles and plantar calca jonatan spurs. Small amount of heterotopic ossicles near the tip the lateral malleolus which could also be enthesopathic or sequela of old trauma. No ankle joint effusion. Soft tissue swelling about the me dial malleolus. IMPRESSION: 1. Large Achilles and plantar calcaneal spurs. No acute osseous abnormality. Reviewed, dictated and finalized at location B.
--- NOTE | ~2024-05-29 | CT_ITS ---
EXAMINATION: CT lumbar spine wo con DATE: 05/29/2024 13:28 INDICATION: Generalized lumbar spine tenderness post fall down stairs. TECHNIQUE: Computed tomography (CT) of the lumbar spine was performed without intravenous contrast. A utomated exposure control and iterative reconstruction technique were employed. The dose-length produ ct was 1367.13 mGy-cm. COMPARISON: None FINDINGS: 4 degree lumbar levocurvature. 3 mm retrolisthesis L5 on S1. Minimal likely physiologic ant erior wedging at T11-L1. There are a few Schmorl's nodes in the lower thoracic spine and upper lumbar spine. No acute fracture. Mild disc height loss at T10-T11, T11-T12 and L5-S1. Paravertebral soft ti ssues are unremarkable. The following disc levels are specifically discussed: T10-T11: The disc does not extend beyond the endplate margin. There is moderate left and mild to mode rate right facet osteoarthritis. There is mild bilateral neural foraminal stenosis. There is mild bonnie tral canal stenosis. T11-T12: Disc is mildly bulging. There is mild to moderate bilateral facet joint osteoarthritis. Ther e is mild right neural foraminal stenosis. There is mild central canal stenosis. T12-L1: The disc does not extend beyond the endplate margin. There is moderate bilateral facet joint osteoarthritis. There is no neural foraminal stenosis. There is no central canal stenosis. L1-L2: Disc is mildly bulging. There is severe bilateral facet joint osteoarthritis. There is mild bi lateral neural foraminal stenosis. There is minimal central canal stenosis. L2-L3: Disc is bulging with superimposed left foraminal zone disc protrusion. There is severe bilater al facet joint osteoarthritis. There is mild right and moderate left neural foraminal stenosis. There is mild to moderate central canal stenosis. L3-L4: Disc is bulging. There is severe bilateral facet joint osteoarthritis. There is mild right and moderate left neural foraminal stenosis. There is mild to moderate central canal stenosis. L4-L5: Disc is bulging. There is moderate bilateral facet joint osteoarthritis. There is mild to mode rate right and moderate left neural foraminal stenosis. There is mild central canal stenosis. L5-S1: Disc is bulging with peripheral calcification along a superimposed large central the left para central disc protrusion. There is moderate right and severe left facet joint osteoarthritis. There is moderate to severe bilateral neural foraminal stenosis. There is mild central canal stenosis. IMPRESSION: 1. Mild to moderate lumbar and lower thoracic spondylosis. No acute osseous abnormality. Reviewed, dictated and finalized at location B. IMPRESSION: 1. Mild to moderate lumbar and lower thoracic spondylosis. No acute osseous abn ormality.
--- NOTE | ~2024-05-29 | XR_ITS ---
EXAMINATION: XR hip LT 2V w AP pelvis DATE: 05/29/2024 13:29 INDICATION: Fall. TECHNIQUE: An anteroposterior view of the pelvis and 2 views of left hip were obtained. COMPARISON: Pelvis and left hip radiograph 04/21/2023 FINDINGS: Bone alignment is normal. No fracture. There is mild osteoarthritis of the hips. There is m oderate lumbar spondylosis. IMPRESSION: 1. Mild osteoarthritis of the hips. Reviewed, dictated and finalized at location A.
[2024-05-29 12:30] VITALS: BP 143/93; PULSE 78; RESP 16; TEMP 36.3; O2SAT 99
--- NOTE | 2024-05-29 12:54 | ED.LOWEXIN ---
HPI - Extremity Injury (Lower) General Chief Complaint: Extremity Injury, Lower Stated Complaint: fall down stairs; left hip and ankle pain Time Seen by Provider: 05/29/24 12:47 Source: patient Mode of arrival: ambulatory Limitations: no limitations History of Present Illness HPI Narrative: 53-year-old female with a history of anxiety / depression, ZAYDA, hypertension, migraine, history of bilateral wrist fractures, skull fractures had a fall yesterday. She was coming down the stairs when she fell backwards and landed on her left side. No head injury. No loss of consciousness. Subsequently the patient has been ambulatory. She presents to the ER with -- lower back pain. No radiation of the pain. -- Left posterior hip pain. The patient is able to move her thigh. -- Left ankle pain and swelling. She has pain around the lateral ankle. No bruising/laceration. No chest pain or shortness of breath. MD complaint: hip injury, ankle injury and other ( Lower back pain) Onset (ago): day(s) ( 1 day) Injury: Left: hip and ankle Type of Injury: blunt Place: home Severity: moderate Relieving factors: nothing Exacerbating factors: nothing Context: fall Associated symptoms: ambulatory Other symptoms: none Treatments prior to arrival: cold therapy Related Data Allergies Allergy/AdvReac Type Severity Reaction Status Date / Time diphenhydramine Allergy Stopped Verified 05/29/24 12:43 [From Benadryl] Breathing lisinopril AdvReac Mild cough Uncoded 05/24/24 07:54 Review of Systems Review of Systems: All systems reviewed & are unremarkable except as noted in HPI and below Constitutional: Constitutional: Reports as per HPI and Reports no additional constitutional complaints Eyes: Eyes: Reports as per HPI and Reports no additional eye complaints ENT: Reports system reviewed and no additional complaints, except as documented and Reports as per HPI Cardiovascular: Cardiovascular: Reports as per HPI and Reports no additional cardiovascular complaints Respiratory: Respiratory: Reports as per HPI and Reports no additional respiratory complaints Gastrointestinal: Gastrointestinal: Reports as per HPI and Reports no additional gastrointestinal complaints Genitourinary: Genitourinary: Reports no additional female genitourinary complaints and Reports as per HPI Musculoskeletal: Musculoskeletal: Reports no additional musculoskeletal complaints and Reports as per HPI Comments: -- pain and swelling of her lower lumbar region -- left ankle pain -- left hip pain Integumentary/Breasts: Skin/Breast: Reports system reviewed and no additional complaints, except as docu and Reports as per HPI Neurologic: Reports system reviewed and no additional complaints, except as documented and Reports as per HPI Psychiatric: Psychiatric: Reports no additional psychiatric complaints and Reports as per HPI Endocrine: Endocrine: Reports no additional endocrine complaints and Reports as per HPI Hematologic/Lymphatic: Hematologic/Lymphatic: Reports no additional hematologic/lymphatic complaints and Reports as per HPI Allergic/Immunologic: Allergic/Immunologic: Reports no additional allergic/immunologic complaints [facility] Past Medical History Medical History Ankle fracture, left Anxiety and depression History of heart attack 2008 HTN (hypertension) Migraine Skull fracture Wrist fracture, bilateral Surgical History Surgical History H/O ovarian cystectomy right History of cholecystectomy Family History Family History Mother Heart attack Father Heart attack COPD (chronic obstructive pulmonary disease) Grandparent Breast cancer Grandparent Breast cancer Social History Social History Smoking status: Never smoker S
[2024-05-29 14:22] VITALS: BP 143/78; PULSE 63; RESP 14; O2SAT 99
[2024-05-29] MEDS: KETOROLAC 30 MG/ML VIAL (*BKC) IM (14:30)
== END 2024-05-29 14:35 | disposition home or self-care (01) ==
PROVIDERS: Emergency Provider Internal Medicine Critical Care Medicine; PCP Nurse Practitioner Family
DX: M25.572 Pain in left ankle and joints of left foot (principal); M25.552 Pain in left hip; I10 Essential (primary) hypertension; I25.2 Old myocardial infarction; W10.9XXA Fall (on) (from) unspecified stairs and steps, initial encounter; Y92.009 Unspecified place in unspecified non-institutional (private) residence as the place of occurrence of the external cause
CPT/HCPCS: 72131; 73502; 73610; 96372; 99284; J1885

== ENCOUNTER 2024-07-15 09:47 | Outpatient (CLI) | payer OTHER, SELFPAY ==
--- NOTE | 2024-07-15 09:51 | EST_ITS ---
Patient Info Name: Kimberlyn Fulton Age: 53 years : 1970 Gender: Female Ht: 63 in Wt: 209 lbs BSA: 2.10 m2 HR: 90 bpm BP: 111 / 80 mmHg Heart Rhythm: Sinus Rhythm Technical Quality: Good Exam Date: 07/15/2024 10:27 AM Exam Location: Echo Lab Patient Status: Outpatient Admit Date: 07/15/2024 Staff Ordering Physician: Dereje Cabello DO Attending Provider: Dereje Cabello DO Exam Type: CA stress test treadmill Study Info A treadmill exercise stress test was performed. History/Risk Factors Hypertension: Yes Myocardial Infarction (MA): Yes Summary 1. 1. Negative Agustin exercise stress test for ischemic ST changes by ECG criteria. 2. 2. Reduced functional capacity, achieving 7 METs of workload. 3. 3. Appropriate HR response to exercise. 4. 4. Appropriate HR recovery at 1 minute post exercise. 5. 5. No imaging with stress testing. Protocol: Agustin Stress ECG Details Stage: REST Duration (min): 1 min : 9 sec Speed (mph): 0.0 Grade (%): 0 HR (bpm): 89 SBP (mmHg): 111 DBP (mmHg): 80 METS: --- Stage: REST Duration (min): 4 min : 19 sec Speed (mph): 0.0 Grade (%): 0 HR (bpm): 83 SBP (mmHg): 111 DBP (mmHg): 80 METS: --- Stage: STAGE 1 Duration (min): 1 min : 0 sec Speed (mph): 1.7 Grade (%): 10 HR (bpm): 110 SBP (mmHg): 111 DBP (mmHg): 80 METS: --- Stage: STAGE 1 Duration (min): 2 min : 0 sec Speed (mph): 1.7 Grade (%): 10 HR (bpm): 113 SBP (mmHg): 111 DBP (mmHg): 80 METS: --- Stage: STAGE 1 Duration (min): 3 min : 0 sec Speed (mph): 1.7 Grade (%): 10 HR (bpm): 111 SBP (mmHg): 173 DBP (mmHg): 65 METS: --- Stage: STAGE 2 Duration (min): 1 min : 0 sec Speed (mph): 2.5 Grade (%): 12 HR (bpm): 138 SBP (mmHg): 173 DBP (mmHg): 65 METS: --- Stage: STAGE 2 Duration (min): 2 min : 0 sec Speed (mph): 2.5 Grade (%): 12 HR (bpm): 135 SBP (mmHg): 173 DBP (mmHg): 65 METS: --- Stage: STAGE 2 Duration (min): 3 min : 0 sec Speed (mph): 2.5 Grade (%): 12 HR (bpm): 141 SBP (mmHg): 190 DBP (mmHg): 59 METS: --- Stage: STAGE 3 Duration (min): 0 min : 18 sec Speed (mph): 3.4 Grade (%): 14 HR (bpm): 145 SBP (mmHg): 190 DBP (mmHg): 59 METS: --- Stage: RECOVERY Duration (min): 0 min : 41 sec Speed (mph): 0.0 Grade (%): 0 HR (bpm): 134 SBP (mmHg): 190 DBP (mmHg): 59 METS: --- Stage: RECOVERY Duration (min): 1 min : 41 sec Speed (mph): 0.0 Grade (%): 0 HR (bpm): 107 SBP (mmHg): 190 DBP (mmHg): 59 METS: --- Stage: RECOVERY Duration (min): 2 min : 41 sec Speed (mph): 0.0 Grade (%): 0 HR (bpm): 100 SBP (mmHg): 182 DBP (mmHg): 69 METS: --- Stage: RECOVERY Duration (min): 3 min : 41 sec Speed (mph): 0.0 Grade (%): 0 HR (bpm): 91 SBP (mmHg): 182 DBP (mmHg): 69 METS: --- Stage:
== END 2024-07-15 09:48 | disposition home or self-care (01) ==
LOC: CHSCARD 09:47
PROVIDERS: PCP Nurse Practitioner Family; Visit Provider Internal Medicine Cardiovascular Disease
DX: R07.9 Chest pain, unspecified (principal)
CPT/HCPCS: 93017

== ENCOUNTER 2024-08-12 14:25 | Emergency (ER) | payer OTHER, SELFPAY ==
[2024-08-12] VITALS (8 sets, daily range): BP systolic 132–165; BP diastolic 80–98; PULSE 74–94; RESP 16; TEMP 36.1; O2SAT 79–99
--- NOTE | ~2024-08-12 | CT_ITS ---
EXAMINATION: CT brain wo con DATE: 08/12/2024 15:21 INDICATION: Left face and hand numbness. TECHNIQUE: Computed tomography (CT) of the head was performed without intravenous contrast. The mA wa s adjusted according to patient size. Iterative reconstruction technique was employed. The dose-lengt h product was 681.00 mGy-cm. COMPARISON: None FINDINGS: There is no intracranial hemorrhage, acute infarction, or abnormal intracranial mass lesion . The ventricles are normal in size. The orbits are normal. There is mild mucosal thickening in the e thmoid sinuses. The mastoid air cells are normal. IMPRESSION: 1. Normal brain. Reviewed, dictated and finalized at location A. IMPRESSION: 1. Normal brain.
--- NOTE | 2024-08-12 14:55 | ECG_ITS ---
Test Date: 2024-08-12 15:05:45 Measurements Intervals [place] Rate: 80 P: 62 ND: 147 QRS: 68 QRSD: 98 T: 61 QT: 391 QTc: 452 Interpretive Statements SINUS RHYTHM BASELINE ARTIFACT- I, II, III, AVR, AVL, AVF NORMAL ECG No previous ECG available for comparison Electronically Signed On 08-12-2024 15:07:40 CDT by Dereje Cabello D.O.
--- NOTE | 2024-08-12 14:57 | ED.NEUROSD ---
HPI - Neuro Symptoms/Deficit General Chief Complaint: Headache Stated Complaint: headache. Time Seen by Provider: 08/12/24 14:38 History of Present Illness HPI Narrative: Pt presents with left hand numbness and left sided facial numbness but no weakness since around 1pm today, Pt says the numbness started initially and has persisted and she later developed a mild DEJESUS. Pt also had left peripheral vision blurriness which has now resolved. Pt has a history of migraines but never had any neuro symptoms, Related Data Allergies Allergy/AdvReac Type Severity Reaction Status Date / Time diphenhydramine Allergy Stopped Verified 08/12/24 15:19 [From Benadryl] Breathing lisinopril AdvReac Mild cough Uncoded 08/12/24 15:19 Review of Systems Review of Systems: All systems reviewed & are unremarkable except as noted in HPI and below PMFSH Past Medical History Medical History Ankle fracture, left Anxiety and depression History of heart attack 2009 HTN (hypertension) Migraine Skull fracture Wrist fracture, bilateral Surgical History Surgical History H/O ovarian cystectomy right History of cholecystectomy Family History Family History Mother Heart attack Father Heart attack COPD (chronic obstructive pulmonary disease) Grandparent Breast cancer Grandparent Breast cancer Social History Social History Smoking status: Never smoker Second hand tobacco smoke exposure: Yes Do You Feel Safe in your Home?: Yes Lack of Transportation: No Lack of Food: Never True Current Housing: Decline to Answer Concerned About Future Housing: Decline to Answer Difficulty Paying Gas/Electric Bills: Decline to Answer Difficulty Paying for Meds: No Currently Unemployed: No Education: High School Diploma/GED Difficulty w/ Childcare or Family Care: No Exam Const: General: healthy appearing and no acute distress Nutritional Appearance: well nourished Orientation/consciousness: patient oriented x3 Limitations: no limitations Eyes: Pupils: Equal, round and reactive pupils present EOM: EOMs intact bilaterally Chest: Chest palpation & inspection: normal inspection of the chest Resp: Effort & Inspection: normal respiratory effort Auscultation: clear to auscultation bilaterally Cardio: Rate: regular rate Rhythm: regular rhythm GI: GI Palp: Yes Soft to palpation Auscultation: normal bowel sounds Skin: General skin exam: normal color Rashes: no rashes Wounds: no wounds Neuro: General: patient oriented x3, moves all extremities, no meningeal signs, no focal motor deficits and CN's II-XI intact bilaterally Cranial nerves: Yes Nystagmus not present Speech: normal speech Gait exam (Neuro): Normal gait present Extrem: General: normal to inspection and no clubbing, cyanosis or edema Psych: Mental Status: mental status grossly normal Affect: normal affect Attitude: cooperative Course Vital Signs Vital signs: Vital Signs Temperature 97.0 F L 08/12/24 14:25 Pulse Rate 87 08/12/24 14:25 Respiratory Rate 16 08/12/24 14:25 Blood Pressure 140/83 08/12/24 14:25 Pulse Oximetry 98 08/12/24 14:25 Oxygen Delivery Room Air 08/12/24 14:25 Temperature 97.0 F L 08/12/24 14:25 Pulse Rate 87 08/12/24 14:25 Respiratory Rate 16 08/12/24 14:25 Blood Pressure 140/83 08/12/24 14:25 Pulse Oximetry 98 08/12/24 14:25 Oxygen Delivery Room Air 08/12/24 14:25 MDM - Neuro Symptoms/Deficit MDM Narrative Medical decision making narrative: Pt presents with left facial numbness and left hand numbness and DEJESUS for about 2 hrs. could be complex migraine but could also be cva or tia. will need CT head and labs and ekg. work up negative but story culd be TIA. discussed with dc
[2024-08-12 15:14] LABS: Basophils Absolute Auto 0.05 K/mm3 (0.00-0.10); Basophils Percent Auto 0.6 % (0.0-1.0); Eosinophils Absolute Auto 0.13 K/mm3 (0.02-0.50); Eosinophils Percent Auto 1.6 % (1.0-6.0); Hematocrit 42.5 % (35.0-49.0); Hemoglobin 14.3 g/dL (12.0-15.0); Immature Granulocyte Absolute 0.04 K/mm3 (0.00-0.00); Immature Granulocyte Percent A 0.5 % (0.0-0.0); Lymphocytes Absolute Auto 1.92 K/mm3 (1.10-4.50); Lymphocytes Percent Auto 23.7 % (18.0-42.0); Mean Corpuscular HGB Conc 33.6 g/dL (32-36); Mean Corpuscular Hemoglobin 29.6 pg (27.0-31.0); Mean Platelet Volume 10.2 fl (9.2-11.8); Monocytes Absolute Auto 0.56 K/mm3 (0.10-0.90); Monocytes Percent Auto 6.9 % (2.0-11.0); Neutrophils Absolute Auto 5.39 K/mm3 (1.70-7.20); Neutrophils Percent Auto 66.7 % (50.0-70.0); Platelet Count Result 242 K/mm3 (150-420); Red Blood Count 4.83 M/mm3 (4.20-5.40); Red Cell Distribution Width 12.7 % (11.6-14.4); White Blood Count 8.1 K/mm3 (4.8-10.8)
--- NOTE | 2024-08-12 15:15 | PC.NURSE ---
Pt resting comfortably. Family at bedside.
[2024-08-12 15:26] LABS: INR 0.9; Partial Thromboplastin Time 26.3 Sec (23.9-30.70); Prothrombin Time 10.2 Seconds (9.50-12.1)
[2024-08-12 15:30] LABS: Alanine Aminotransferase 32 U/L (14-59); Albumin Level 4.1 g/dL (3.4-5.0); Alkaline Phosphatase 146 U/L (46-116); Anion Gap 8 mmol/L (4-12); Aspartate Amino Transferase 24 U/L (15-37); Bilirubin,Total 0.7 mg/dL (0.00-1.00); Blood Urea Nitrogen 19 mg/dL (7-18); Calcium 9.1 mg/dL (8.5-10.1); Carbon Dioxide 28 mmol/L (21-32); Chloride 102 mmol/L (98-108); Estimated Glomerular Filt Rate 46; Glucose 93 mg/dL (70-99); Osmolality Calculated 288 mOsm/kg (285-295); Potassium 4.3 mmol/L (3.5-5.1); Sodium 138 mmol/L (136-145); Total Protein 7.5 g/dL (6.4-8.2)
--- NOTE | 2024-08-12 16:35 | PC.NURSE ---
Put pt in gown for transfer. Family still at bedside.
--- NOTE | 2024-08-12 17:18 | PC.NURSE ---
Gave pt pillow for under her arm that has IV. Family at bedside. Call light within reach.
[2024-08-12] MEDS: ACETAMINOPHEN 500 MG TABLET 1000 MG PO (17:31)
--- NOTE | 2024-08-12 18:30 | PC.NURSE ---
Pt resting comfortably in stretcher. Waiting on EMS for transfer.
== END 2024-08-12 18:45 | disposition short-term general hospital (02) ==
PROVIDERS: Emergency Provider Emergency Medicine; PCP Nurse Practitioner Family
DX: G45.9 Transient cerebral ischemic attack, unspecified (principal); I10 Essential (primary) hypertension; I25.2 Old myocardial infarction
CPT/HCPCS: 36415; 70450; 80053; 85025; 85610; 85730; 93005; 99285

== ENCOUNTER 2024-08-12 20:32 | Observation (INO) | payer OTHER, SELFPAY ==
--- NOTE | ~2024-08-12 | MR_ITS ---
EXAMINATION: MR cervical spine wo con DATE: 08/13/2024 11:11 INDICATION: Left neck pain. TECHNIQUE: Magnetic resonance imaging (MRI) of the cervical spine was performed without intravenous c ontrast. COMPARISON: None FINDINGS: There is 6 degrees levocurvature of cervicothoracic spine. Vertebral body heights are julian l. There is mildly decreased disc height at C5-C6. The spinal cord signal intensity is normal. The fo llowing disc levels are specifically discussed: C2-C3: The disc does not extend beyond the endplate margin. There is no uncovertebral joint osteoarth ritis. There is mild bilateral facet joint osteoarthritis. There is no neural foraminal stenosis. The re is no central canal stenosis. C3-C4: The disc does not extend beyond the endplate margin. There is mild left uncovertebral joint os teoarthritis. There is mild bilateral facet joint osteoarthritis. There is mild left neural foraminal stenosis. There is no central canal stenosis. C4-C5: There is a central extrusion. There is no uncovertebral joint osteoarthritis. There is moderat e and mild left facet joint osteoarthritis. There is no neural foraminal stenosis. There is moderate central canal stenosis with ventral and dorsal indentation of the spinal cord. C5-C6: The disc is bulging. There is moderate severe left uncovertebral joint osteoarthritis. There i s moderate right and mild left facet joint osteoarthritis. There is mild right and moderate left neur al foraminal stenosis. There is mild central canal stenosis. C6-C7: The disc is bulging. There is moderate bilateral uncovertebral joint osteoarthritis. There is mild bilateral facet joint osteoarthritis. There is mild bilateral neural foraminal stenosis. There i s mild central canal stenosis. C7-T1: The disc does not extend beyond the endplate margin. There is no uncovertebral joint osteoarth ritis. There is moderate bilateral facet joint osteoarthritis. There is mild bilateral neural foramin al stenosis. There is no central canal stenosis. IMPRESSION: 1. Moderate cervical spondylosis. Reviewed, dictated and finalized at location A.
--- NOTE | ~2024-08-12 | MR_ITS ---
MR brain/brain stem wo con Ordering provider: Mary Coburn PA-C History: 53 years Female with . left hand/face paresthesias, headache . Comparison: CT head performed yesterday. Technique: MRI brain was performed without contrast. FINDINGS: BONES: Normal. CRANIOCERVICAL JUNCTION: normal. PITUITARY: Normal. MAJOR INTRACRANIAL VESSELS: Normal flow void. OPTIC NERVES AND CRANIAL NERVES VII AND VIII COMPLEXES: Grossly normal. BRAIN PARENCHYMA AND CSF SPACES: Mild nonspecific T2 white matter hyperintensities are seen in a carlos ateral periventricular and deep white matter distribution which are likely related to chronic ischemi c small vessel disease. Mild diffuse cortical atrophy. The brainstem and cerebellum are normal. No ac [place] or chronic intracranial hemorrhage. No extra axial fluid collections. Diffusion weighted and ADC mapping images reveal no recent ischemia. No midline shift or mass effect. PARANASAL SINUSES: Bilateral ethmoid sinus disease. MASTOIDS: Minimal effusion the left distal radius cells SUPERFICIAL/SURROUNDING SOFT TISSUES: Normal. IMPRESSION: 1. No definite acute intracranial abnormality seen. Reviewed, dictated and finalized at location A.
[2024-08-12 19:46] VITALS: BP 149/77; PULSE 77; RESP 18; TEMP 36.4; O2SAT 99
[2024-08-12 19:48] VITALS: BMI 36.7
--- NOTE | 2024-08-12 19:49 | ADMGEN ---
This patient, Kimberlyn Fulton, was admitted to Medical Room 341-01. Patient/family oriented to hospital policies and general routines including ID bracelet, bed and alarms, visiting hours, pain management, procedures, bathroom and other care routines, personal items, smoking policy, room service/diet, and visiting hours. Information on how to activate the Rapid Response Team has been discussed. Patient/Family are encouraged to report perceived risks to care and to ask questions if they do not understand what they are told or what they should do.
--- NOTE | 2024-08-12 20:35 | PM.IMHP ---
H&P: HPI History of Present Illness Date/Time: 08/12/24 20:35 Chief Complaint: Headache and left face/hand numbness. Narrative: This is a very pleasant 53-year-old female with history of migraine headaches, hypertension, depression, and anxiety who presented to the emergency department at the [facility] earlier today for evaluation of paresthesias in the left side of the face and left hand as well blurry vision in the left periphery. The patient provides the following history. 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 She also reports having some blurry vision in the left side of her periphery. Not long thereafter she developed a pretty significant headache, similar to previous migraines, associated with photophobia and some nausea. She continues to have sensation changes in her face and hand but the vision is pretty much back to normal. On exam she does have tenderness to palpation over the left side of her neck though it is not noticeable without palpation. She has not had any falls or injuries. She also denies vertigo, facial droop, difficulties speaking and swallowing, focal weakness, chest pain, palpitations, and vomiting. In the ED: Vital signs were stable on arrival. Labs were significant for a BUN of 19 and creatinine of 1.210 which is a bit higher than what she typically runs. Head CT showed a normal brain. EKG showed sinus rhythm. Transfer was initiated to [place] for closer monitoring and neurology consultation. Review of Systems Review of Systems: 12 systems were reviewed and are negative except for as per HPI. [facility] Past Medical History Medical History (Updated 08/12/24 @ 22:54 by Mary Coburn PA-C) Ankle fracture, left Anxiety and depression History of heart attack (2008) Hypertension Migraine Skull fracture Wrist fracture, bilateral Surgical History Surgical History (Updated 08/12/24 @ 22:52 by Mary Coburn PA-C) History of cholecystectomy History of ovarian cystectomy Right-sided Family History Family History Mother Heart attack Father Heart attack COPD (chronic obstructive pulmonary disease) Grandparent Breast cancer Grandparent Breast cancer Social History Social History (Updated 08/12/24 @ 22:52 by Mary Coburn PA-C) Social History: Surrogate medical decision maker: Cori Fulton, daughter Code status: Full code. Smoking status: Never smoker Second hand tobacco smoke exposure: Yes Alcohol intake: never Substance use: never Do You Feel Safe in your Home?: Yes Lack of Transportation: No Lack of Food: Never True Current Housing: I Have Housing Concerned About Future Housing: No Difficulty Paying Gas/Electric Bills: No Difficulty Paying for Meds: No Currently Unemployed: No Education: High School Diploma/GED Difficulty w/ Childcare or Family Care: No Spiritual care concerns: No Meds Home Medications and Allergies Home Medications Medication Instructions Recorded Confirmed Type inhalational spacing device #10 ea 01/18/24 08/12/24 Rx (Aerochamber MV spacer) losartan 100 mg tablet 100 mg PO DAILY #30 tabs 01/22/24 08/12/24 Rx hydrochlorothiazide 12.5 mg tablet 25 mg PO QHS #60 tabs 02/12/24 08/12/24 Rx benzonatate 200 mg capsule 200 mg PO BID PRN cough #30 caps 07/24/24 08/12/24 Rx albuterol sulfate 90 mcg/actuation 1 puff inhalation Q4H PRN 08/12/24 08/12/24 History aerosol inhaler Shortness Of Breath Or Wheezing alprazolam 0.5 mg tablet 0.5 mg PO DAILY PRN Anxiety 08/12/24 08/12/24 History amlodipine 5 mg tablet 10 mg PO DAILY 08/12/24 08/12/24 History diclofenac sodium 50 mg 50 mg PO Q12H PRN Pain (Scale 08/12/24 08/12/24 History tablet,delayed release
[2024-08-12] MEDS: hydroCHLOROthiazide 12.5 MG CAPSULE 25 MG PO (20:52)
[2024-08-13] VITALS (12 sets, daily range): BP systolic 126–153; BP diastolic 76–90; PULSE 63–85; RESP 16–18; TEMP 36.1–36.7; O2SAT 96–100
[2024-08-13] MEDS: ACETAMINOPHEN 325 MG TABLET 650 MG PO ×3 (05:24→18:31)
[2024-08-13 06:22] LABS: Anion Gap 10 mmol/L (4-12); Blood Urea Nitrogen 22 mg/dL (7-17); Calcium 9.2 mg/dL (8.4-10.2); Carbon Dioxide 24 mmol/L (22-30); Chloride 102 mmol/L (98-107); Estimated CRCL calculation 68 ml/min; Estimated Glomerular Filt Rate > 60; Glucose 95 mg/dL (65-110); Magnesium 2.2 mg/dL (1.6-2.3); Potassium 4.3 mmol/L (3.4-5.0); Sodium 136 mmol/L (137-145)
[2024-08-13] MEDS: amLODIPine BESYLATE 10 MG TABLET PO (09:31)
[2024-08-13] MEDS: LOSARTAN POTASSIUM 100 MG TABLET PO (09:31)
--- NOTE | 2024-08-13 11:32 | PM.IMPN ---
Progress Note: A&P Assessment and Plan (1) Paresthesia: Code(s): R20.2 - Paresthesia of skin Status: Acute (2) Migraine headache: Code(s): G43.909 - Migraine, unspecified, not intractable, without status migrainosus Status: Acute (3) Neck pain on left side: Code(s): M54.2 - Cervicalgia Status: Acute (4) Hypertension: Code(s): I10 - Essential (primary) hypertension Status: Acute (5) Anxiety and depression: Code(s): F41.9 - Anxiety disorder, unspecified; F32.A - Depression, unspecified Status: Acute Plan # paresthesia # migraine headache # cervicalgia - evaluation of paresthesias in the left side of her face and left hand as well as blurry vision in the left periphery followed by a headache -Differential diagnosis includes TIA versus CVA versus complex migraine versus other. -Labs, imaging, EKG, and all reports were personally reviewed. - MRI of the brain and cervical spine ordered - Continue neurologic checks q.4 hours - Neurology has been consulted - will order mg, vit b12, folate, tsh, hga1c labs # HTN -chronic - resume home amlodipine 10 mg, hctz 25 gm # ROSCOE -chronic - resume home alprazolam Time Spent With Patient Time with patient: Greater than 35 minutes Subjective Date/time seen: 08/13/24 11:32 Interval history: Headache/left face/hand numbness Narrative: This is a very pleasant 53-year-old female with history of migraine headaches, hypertension, depression, and anxiety who presented to the emergency department at the [facility] earlier today for evaluation of paresthesias in the left side of the face and left hand as well blurry vision in the left periphery. The patient provides the following history. 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 She also reports having some blurry vision in the left side of her periphery. Not long thereafter she developed a pretty significant headache, similar to previous migraines, associated with photophobia and some nausea. She continues to have sensation changes in her face and hand but the vision is pretty much back to normal. On exam she does have tenderness to palpation over the left side of her neck though it is not noticeable without palpation. She has not had any falls or injuries. She also denies vertigo, facial droop, difficulties speaking and swallowing, focal weakness, chest pain, palpitations, and vomiting. In the ED: Vital signs were stable on arrival. Labs were significant for a BUN of 19 and creatinine of 1.210 which is a bit higher than what she typically runs. Head CT showed a normal brain. EKG showed sinus rhythm. Transfer was initiated to [place] for closer monitoring and neurology consultation. 08/13- pt is seen and examined. She reports still headache but better then it was, still blurred vision and numbness to face is improved. Review of Systems Review of Systems: 12 systems were reviewed and are negative except for as per HPI. Constitutional: Constitutional: Denies chills Eyes: Eyes: Reports blurry vision Cardiovascular: Cardiovascular: Denies chest pain and Denies diaphoresis Respiratory: Respiratory: Denies chest congestion and Denies cough Gastrointestinal: Gastrointestinal: Denies abdominal pain Exam Narrative: General: Nontoxic-appearing female in the semi-Navarro position in bed. Weight: 94 kg. BMI: 36.7. HEENT: Normocephalic, atraumatic. PERRL, EOMI. Sclera anicteric. Oral mucosa moist. Oropharynx clear. Neck: Supple. No obvious bruits. She has some tenderness to palpation over the paraspinous muscles on the left side. Respiratory: Lungs are clear to auscultation bilaterally. Cardiovascular: Regular rate and rhythm with S1-S2. Gastrointestinal:
[2024-08-13] MEDS: hydroCHLOROthiazide 12.5 MG CAPSULE 25 MG PO (20:12)
[2024-08-13] MEDS: ACETAMINOPHEN/BUTALBITAL/CAFFEINE 325-50-40 MG TABLET (FIORICET) 1 TAB PO (20:13)
[2024-08-14] VITALS: BP 123/73; PULSE 72; PULSE 79; RESP 18; TEMP 36.2; O2SAT 98
[2024-08-14 04:00] VITALS: PULSE 72
[2024-08-14 04:30] VITALS: BP 140/85; PULSE 84; RESP 16; TEMP 36.4; O2SAT 97
[2024-08-14 07:58] LABS: Cholesterol 217 mg/dL (0-200); HDL Direct 56 mg/dL; Magnesium 2.3 mg/dL (1.6-2.3); Triglycerides 135 mg/dL (<150)
[2024-08-14 08:00] VITALS: PULSE 77
[2024-08-14 08:10] LABS: LDL Cholesterol Direct 124 mg/dL
[2024-08-14] MEDS: amLODIPine BESYLATE 10 MG TABLET PO (08:17)
[2024-08-14] MEDS: LOSARTAN POTASSIUM 100 MG TABLET PO (08:17)
[2024-08-14 08:42] LABS: Hemoglobin A1C 5.5 % (<5.7)
[2024-08-14 09:05] LABS: Folic Acid 5.3 ng/mL (2.76->20)
--- NOTE | 2024-08-14 09:11 | PM.IMPN ---
Progress Note: A&P Assessment and Plan (1) Paresthesia: Code(s): R20.2 - Paresthesia of skin Status: Acute Assessment and Plan: Evaluation of paresthesias in the left side of her face and left hand as well as blurry vision in the left periphery followed by a headache Differential diagnosis includes TIA versus CVA versus complex migraine versus other. - Head CT: normal brain - MRI of the brain: No definite acute intracranial abnormality seen. - Cervical spine: Moderate cervical spondylosis. - B12 and folate WNL - TSH 4.430 - Mg WNL - Hg A1c 5.5 - Continue neurologic checks q.4 hours - Neurology has been consulted (2) Migraine headache: Code(s): G43.909 - Migraine, unspecified, not intractable, without status migrainosus Status: Acute Assessment and Plan: Chronic hx of migraines. Per chart review, patient developed a pretty significant headache, similar to previous migraines, associated with photophobia and some nausea following the parathesias. - See plan above - Monitor (3) Hypertension: Code(s): I10 - Essential (primary) hypertension Status: Acute Assessment and Plan: Chronic, continue home medication. - amlodipine 10 mg daily - HCTZ 25 mg daily - losartan 100 mg daily -monitor (4) Anxiety and depression: Code(s): F41.9 - Anxiety disorder, unspecified; F32.A - Depression, unspecified Status: Acute Assessment and Plan: Chronic - continue home alprazolam Subjective Date/time seen: 08/14/24 09:11 Interval history: Headache/left face/hand numbness Narrative: This is a very pleasant 53-year-old female with history of migraine headaches, hypertension, depression, and anxiety who presented to the emergency department at the [facility] earlier today for evaluation of paresthesias in the left side of the face and left hand as well blurry vision in the left periphery. The patient provides the following history. 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 She also reports having some blurry vision in the left side of her periphery. Not long thereafter she developed a pretty significant headache, similar to previous migraines, associated with photophobia and some nausea. She continues to have sensation changes in her face and hand but the vision is pretty much back to normal. On exam she does have tenderness to palpation over the left side of her neck though it is not noticeable without palpation. She has not had any falls or injuries. She also denies vertigo, facial droop, difficulties speaking and swallowing, focal weakness, chest pain, palpitations, and vomiting. In the ED: Vital signs were stable on arrival. Labs were significant for a BUN of 19 and creatinine of 1.210 which is a bit higher than what she typically runs. Head CT showed a normal brain. EKG showed sinus rhythm. Transfer was initiated to [place] for closer monitoring and neurology consultation. 08/13- pt is seen and examined. She reports still headache but better then it was, still blurred vision and numbness to face is improved. 08/14: Review of Systems Review of Systems: All systems reviewed & are unremarkable except as noted in HPI and below Exam Narrative: AF General: well nourished, well-developed female in no acute respiratory distress who is nontoxic appearing, lying semi recumbent in bed. HEENT: Normocephalic. Atraumatic. Pupils equal round reactive to light. Extraocular movement intact. Sclera clear and anicteric. Nares patent. No oral lesions. Moist mucous membranes. Tongue is midline. Palate kristen symmetrically. No facial asymmetry. Neck: Neck was supple. No dominant adenopathy, thyromegaly or masses. 2+ carotid upstrokes without bruits. Chest: Lungs are
[2024-08-14 09:39] LABS: Basophils Absolute Auto 0.1 K/mm3 (0.0-0.1); Basophils Percent Auto 0.6 % (0.2-1.2); Eosinophils Absolute Auto 0.1 K/mm3 (0-0.3); Eosinophils Percent Auto 1.5 % (0-4.4); Hematocrit 46.6 % (37.0-47.0); Hemoglobin 15.8 g/dL (12.0-15.0); Immature Granulocyte Absolute 0.03 K/mm3 (0.00-0.031); Immature Granulocyte Percent A 0.4 % (0-0.5); Lymphocytes Absolute Auto 1.88 K/mm3 (0.9-3.2); Lymphocytes Percent Auto 23.6 % (18.3-44.2); Mean Corpuscular HGB Conc 33.9 g/dl (32-36); Mean Corpuscular Hemoglobin 30.2 pg (26-34); Mean Corpuscular Volume 89.1 fl (80-100); Mean Platelet Volume 10.9 fl (7.4-10.4); Monocytes Absolute Auto 0.6 K/mm3 (0.1-0.6); Monocytes Percent Auto 7.3 % (2.6-8.5); Neutrophils Absolute Auto 5.3 K/mm3 (1.3-6.7); Neutrophils Percent Auto 66.6 % (45.5-73.1); Platelet Count Result 247 k/mm3 (150-375); Red Blood Count 5.23 M/mm3 (4.2-5.4); Red Cell Distribution Width 13.2 % (11.5-14.5)
[2024-08-14 09:45] LABS: Phosphorus 4.9 mg/dL (2.5-4.5)
[2024-08-14 09:49] LABS: Alanine Aminotransferase 32 U/L (6-35); Albumin Level 4.3 g/dL (3.5-5.1); Alkaline Phosphatase 141 U/L (38-126); Anion Gap 13 mmol/L (4-12); Aspartate Amino Transferase 35 U/L (14-36); Blood Urea Nitrogen 26 mg/dL (7-17); Calcium 9.6 mg/dL (8.4-10.2); Carbon Dioxide 22 mmol/L (22-30); Chloride 101 mmol/L (98-107); Estimated CRCL calculation 51 ml/min; Estimated Glomerular Filt Rate 47; Glucose 113 mg/dL (65-110); Potassium 4.4 mmol/L (3.4-5.0); Sodium 136 mmol/L (137-145)
[2024-08-14 10:51] VITALS: BP 130/85; PULSE 79; RESP 16; TEMP 36.3; O2SAT 98
[2024-08-14 11:09] LABS: Total Triiodothyronine (T3) 1.56 NG/ML (0.97-1.69)
[2024-08-14 12:00] VITALS: PULSE 83
[2024-08-14] MEDS: ACETAMINOPHEN 325 MG TABLET 650 MG PO (12:05)
--- NOTE | 2024-08-14 12:42 | WPDNEURCNPN ---
Consult date: 08/14/24 HPI: Kimberlyn Fulton is a 53 year old femaleAdmitted to the hospital through the emergency room for the complaints of numbness of the left hand and left side of the face but no associated weakness of the left or right upper or lower extremities she also complained of rather mild persistent headache in addition to left peripheral vision blurriness which was subsequently resolved patient does have a history of migraine but never has had any neurological symptoms. She is allergic to Benadryl and lisinopril. She does have ongoing history of anxiety and depression and history of the heart attack in 2008 in addition to hypertension, migraines, she has history of never smoker and initial exam in the emergency room was normal her vital signs were normal with blood pressure 140/83 CBC was normal with WBC 8.1 hemoglobin 14.3 and platelet count 242 complete lab otherwise was normal since admission to the hospital she has had the MRI of the cervical spine which documented only moderate cervical spondylosis but no cervical stenosis and cervical spinal cord is normal she has only mild central canal stenosis the level of C5 and C6 and C6 and 7 but no impingement. MRI of the brain is completely normal at present she is receiving alprazolam 0.5mg p.r.n., amlodipine 10mg daily, hydrochlorothiazide 25mg at night and losartan 100mg daily [facility] Past Medical History Medical History (Updated 08/13/24 @ 00:00 by Arnulfo Cardenas) Ankle fracture, left Anxiety and depression History of heart attack (2008) Hypertension Migraine Skull fracture Wrist fracture, bilateral Surgical History Surgical History (Updated 08/12/24 @ 22:52 by Mary Coburn PA-C) History of cholecystectomy History of ovarian cystectomy Right-sided Family History Family History Mother Heart attack Father Heart attack COPD (chronic obstructive pulmonary disease) Grandparent Breast cancer Grandparent Breast cancer Social History Social History (Updated 08/12/24 @ 22:52 by Mary Coburn PA-C) Social History: Surrogate medical decision maker: Cori Fulton, daughter Code status: Full code. Smoking status: Never smoker Second hand tobacco smoke exposure: Yes Alcohol intake: never Substance use: never Do You Feel Safe in your Home?: Yes Lack of Transportation: No Lack of Food: Never True Current Housing: I Have Housing Concerned About Future Housing: No Difficulty Paying Gas/Electric Bills: No Difficulty Paying for Meds: No Currently Unemployed: No Education: High School Diploma/GED Difficulty w/ Childcare or Family Care: No Spiritual care concerns: No Meds Home Medications and Allergies Home Medications Medication Instructions Recorded Confirmed Type inhalational spacing device #10 ea 01/18/24 08/12/24 Rx (Aerochamber MV spacer) losartan 100 mg tablet 100 mg PO DAILY #30 tabs 01/22/24 08/12/24 Rx hydrochlorothiazide 12.5 mg tablet 25 mg PO QHS #60 tabs 02/12/24 08/12/24 Rx benzonatate 200 mg capsule 200 mg PO BID PRN cough #30 caps 07/24/24 08/12/24 Rx albuterol sulfate 90 mcg/actuation 1 puff inhalation Q4H PRN 08/12/24 08/12/24 History aerosol inhaler Shortness Of Breath Or Wheezing alprazolam 0.5 mg tablet 0.5 mg PO DAILY PRN Anxiety 08/12/24 08/12/24 History amlodipine 5 mg tablet 10 mg PO DAILY 08/12/24 08/12/24 History diclofenac sodium 50 mg 50 mg PO Q12H PRN Pain (Scale 08/12/24 08/12/24 History tablet,delayed release Score 1-3) Allergies Allergy/AdvReac Type Severity Reaction Status Date / Time diphenhydramine Allergy Stopped Verified 08/12/24 15:19 [From Benadryl] Breathing lisinopril AdvReac Mild cough Uncoded 08/12/24 15:19 Vital Signs Vital Signs - 24 hr 08/13/24 13:23 08/13/24 16:29 08/13/24 16:00 Temperature 36.1 C L 36.7 C Pulse Rate 81 80 78 Respiratory Rate 18 16 Blood Pressure 126/78 132/
--- NOTE | 2024-08-14 13:43 | PM.DS ---
DS: Admitting Diagnosis Discharge Date 08/14/2024 Admitting Diagnosis Paraesthesia Migraine headache Hypertension Anxiety and depression DS: Discharge Diagnosis Discharge Diagnosis (1) Paresthesia: Code(s): R20.2 - Paresthesia of skin Status: Acute (2) Migraine headache: Code(s): G43.909 - Migraine, unspecified, not intractable, without status migrainosus Status: Acute (3) Hypertension: Code(s): I10 - Essential (primary) hypertension Status: Acute (4) Anxiety and depression: Code(s): F41.9 - Anxiety disorder, unspecified; F32.A - Depression, unspecified Status: Acute DS: Summary Hospital Course Reason for hospitalization: Paraesthesia Migraine headache Hypertension Anxiety and depression Hospital Course: 53-year-old female with history of migraine headaches, hypertension, depression, and anxiety who presented to the emergency department at the [facility] earlier today for evaluation of paresthesias in the left side of the face and left hand as well blurry vision in the left periphery. 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 She also reports having some blurry vision in the left side of her periphery. Not long thereafter she developed a pretty significant headache, similar to previous migraines, associated with photophobia and some nausea. Per patient she had similar symptoms approximately 4-5 years ago as well and the symptoms completely resolved. A head CT was obtained a showed a normal brain. A C spine MRI showed moderate cervical spondylosis. A brain MRI was obtained and showed a no definite acute intracranial abnormality. Neurology was consulted. Differential diagnosis remains TIA versus migraine versus cervicalgia. She is to be started on an 81 mg aspirin daily and atorvastatin [address] Lackey. prior to discharge patient was no longer endorsing any paresthesia to her left face and left arm. She denied any headache, changes in vision, chest, shortness of breath, palpitations, and abdominal pain. Patient discharged home in stable condition. She is to follow up with her PCP in [address] Lackey as scheduled. Status at Discharge Functional status at discharge: independent ambulation Time Spent with Patient Time attestation: Total time spent providing and/or coordinating discharge services: Time spent: Greater than 30 minutes Exam Narrative: AF HR 79 RR 16 SpO2 98 BP 130/85 General: female in no acute respiratory distress who is nontoxic appearing, lying semi recumbent in bed. HEENT: Normocephalic. Atraumatic. Pupils equal round reactive to light. Extraocular movement intact. Sclera clear and anicteric. No facial asymmetry. Chest: Lungs are clear to auscultation bilaterally. No wheezes or crackles. CV: Heart was regular rate and rhythm. S1-S2. No murmurs, gallops, or rubs. Abd: Abdomen was soft. Nontender. Nondistended. Positive bowel sounds. No organomegaly or masses. Ext: No clubbing, cyanosis, or edema. 2+ DP pulses bilaterally. Neuro: Patient is alert and oriented x4. Strength is 5/5 in both upper and lower extremities. Cranial nerves 2-12 are intact. Speech is clear. DS: Data Data Completed and Pending Completed studies during hospitalization: C spine MRI Brain MRI Head CT Labs on day of discharge: Labs from last 24 hours 08/14/24 08/14/24 07:11 07:06 WBC 8.0 RBC 5.23 Hgb 15.8 H Hct 46.6 MCV 89.1 MCH 30.2 MCHC 33.9 RDW 13.2 Plt Count 247 MPV 10.9 H Immature Gran % (Auto) 0.4 Neut % (Auto) 66.6 Lymph % (Auto) 23.6 [place] % (Auto) 7.3 Eos % (Auto) 1.5 Baso % (Auto) 0.6 Lymph # (Auto) 1.88 [place] # (Auto) 0.6 Eos # (Auto) 0.1 Baso # (Auto) 0.1 Abs Immat Gran (auto) 0.03 Ab
--- NOTE | 2024-08-14 14:28 | WPDNEURCNPN ---
Assessment and Plan Assessment and plan (1) Neck pain on left side: Code(s): M54.2 - Cervicalgia Status: Acute (2) Migraine headache: Code(s): G43.909 - Migraine, unspecified, not intractable, without status migrainosus Status: Acute (3) Hypertension: Code(s): I10 - Essential (primary) hypertension Status: Acute Plan 1. TIA 2. Migraine 3. Cervicalgia with underlying cervical spondylosis and mild cervical stenosis with no evidence of spinal cord involvement 4. Hypertension 5. History of anxiety with depression suggestion continue aspirin 81mg daily in addition to all other medications such and follow-up with a neurologist in next 6 months. Consult date: 08/14/24 HPI: Kimberlyn Fulton is a 53 year old female 53 years old right-handed female admitted to the hospital through the emergency room for the complaints of numbness of the left hand and left side of the face but no associated weaknesses left or right upper or lower extremities. Patient also complained of mild persistent headaches in addition to the left peripheral visual blurriness which was subsequently resolved. And does have a history of migraine but never has had any other neurological symptoms. He is allergic to Benadryl and lisinopril. She does have ongoing history of anxiety and depression and history of heart attack in 2008 in addition to the hypertension, migraine, she also history of never smoking. Initial exam in the emergency room was normal her vital signs were normal with blood pressure 140/83 CBC was normal with WBC 8.1 hemoglobin 14.3 platelet count 242 and complete lab otherwise was normal. Since admission to the hospital she has had MRI of the cervical spine which documented only moderate cervical spondylosis but no cervical stenosis and the cervical spinal cord is normal she has only mild central canal stenosis at the level of C5-C6 C7 but no impingement of the spinal cord. MRI of the brain is completely normal at present she is receiving alprazolam 0.5mg p.r.n. amlodipine 10mg daily hydrochlorothiazide 25mg at night and losartan 100mg daily. Review of Systems Review of Systems: All systems reviewed & are unremarkable except as noted in HPI and below PMFSH Past Medical History Medical History Ankle fracture, left Anxiety and depression History of heart attack (2008) Hypertension Migraine Skull fracture Wrist fracture, bilateral Surgical History Surgical History History of cholecystectomy History of ovarian cystectomy Right-sided Family History Family History Mother Heart attack Father Heart attack COPD (chronic obstructive pulmonary disease) Grandparent Breast cancer Grandparent Breast cancer Social History Social History Social History: Surrogate medical decision maker: Cori Fulton, daughter Code status: Full code. Smoking status: Never smoker Second hand tobacco smoke exposure: Yes Alcohol intake: never Substance use: never Do You Feel Safe in your Home?: Yes Lack of Transportation: No Lack of Food: Never True Current Housing: I Have Housing Concerned About Future Housing: No Difficulty Paying Gas/Electric Bills: No Difficulty Paying for Meds: No Currently Unemployed: No Education: High School Diploma/GED Difficulty w/ Childcare or Family Care: No Spiritual care concerns: No Meds Home Medications and Allergies Home Medications Medication Instructions Recorded Confirmed Type inhalational spacing device #10 ea 01/18/24 08/12/24 Rx (Aerochamber MV spacer) losartan 100 mg tablet 100 mg PO DAILY #30 tabs 01/22/24 08/12/24 Rx hydrochlorothiazide 12.5 mg tablet 25 mg PO QHS #60 tabs 02/12/24 08/12/24 Rx benzonatate 200 mg capsule 200 mg PO BID PRN cough
== END 2024-08-14 14:15 | disposition home or self-care (01) ==
PROVIDERS: Family Medicine; Nurse Practitioner; Physician Assistant; Admitting Provider General Practice; PCP Nurse Practitioner Family; Visit Provider Student in an Organized Health Care Education/Training Program
DX: R20.2 Paresthesia of skin (principal); G43.909 Migraine, unspecified, not intractable, without status migrainosus; I10 Essential (primary) hypertension; F41.8 Other specified anxiety disorders
CPT/HCPCS: 36415; 70551; 72141; 80048; 80053; 80061; 82607; 82746; 83036; 83735; 84100; 84439; 84443; 84480; 85025; A9270; G0378; G0379

== ENCOUNTER 2024-09-02 09:23 | Outpatient (CLI) | payer OTHER, SELFPAY ==
--- NOTE | ~2024-09-02 | XR_ITS ---
XR hand RT 2V Ordering provider: Bj Perry APRN History: . /, fall last night, shooting pain from 3rd into wrist . Comparison: None. FINDINGS: BONES: No acute fracture or dislocation. JOINT SPACES: Narrowing of the distal interphalangeal joints of the second and third fingers with ost eophytes. SOFT TISSUES: Normal. IMPRESSION: No acute osseous abnormality right hand. Osteoarthritic changes. Reviewed, dictated and finalized at location A.
--- NOTE | ~2024-09-02 | XR_ITS ---
Right wrist Technique: PA and lateral views were obtained. Clinical History: Pain Findings: No acute fracture or dislocation is seen. Osseous alignment is anatomic. Joint spaces are p reserved. Soft tissues are unremarkable. Impression: Unremarkable right wrist radiographs. Reviewed, dictated and finalized at location M. Impression: Unremarkable right wrist radiographs.
--- NOTE | ~2024-09-02 | US_ITS ---
EXAMINATION: US carotid duplex BI DATE: 09/02/2024 09:55 INDICATION: Left face and hand numbness. Paresthesia of skin. TECHNIQUE: Grayscale, color Doppler, and pulsed Doppler images of the cervical carotid arteries were obtained. The degree of vessel stenosis is placed in one of the following categories: normal, <50%, 5 0-69%, >=70% but less than near-occlusion, near-occlusion, or total occlusion. Note that percent sten osis relative to normal distal artery lumen diameter is indirectly measured from velocity measurement s as described by Niall, et al. Radiology 2003; [id number]. COMPARISON: None. FINDINGS: RIGHT: The right common carotid artery (CCA) peak systolic velocity (PSV) is 87 cm/s. The right internal car otid artery (ICA) PSV is 102 cm/s. The right ICA end-diastolic velocity (EDV) is 49 cm/s. The right I CA/CCA PSV ratio is 1.2. Grayscale and color Doppler images yield an estimate of <50% diameter reduct ion from plaque in the ICA. There is antegrade flow in the right vertebral artery. LEFT: The left CCA PSV is 98 cm/s. The left ICA PSV is 131 cm/s. The left ICA EDV is 56 cm/s. The left ICA/ CCA PSV ratio is 1.3. Grayscale and color Doppler images yield an estimate of <50% diameter reduction from plaque in the ICA. There is antegrade flow in the left vertebral artery. IMPRESSION: 1. <50% stenosis in the right internal carotid artery. 2. <50% stenosis in the left internal carotid artery. Reviewed, dictated and finalized at location A.
== END 2024-09-02 09:24 | disposition home or self-care (01) ==
LOC: CHSIMG 09:25
PROVIDERS: PCP Nurse Practitioner Family; Visit Provider Nurse Practitioner Family
DX: G43.909 Migraine, unspecified, not intractable, without status migrainosus (principal); I10 Essential (primary) hypertension; R20.2 Paresthesia of skin; I65.23 Occlusion and stenosis of bilateral carotid arteries
CPT/HCPCS: 73100; 73120; 93880

== ENCOUNTER 2024-09-19 14:53 | Emergency (ER) | payer OTHER, SELFPAY ==
[2024-09-19] VITALS (8 sets, daily range): BP systolic 142–155; BP diastolic 80–98; PULSE 60–80; RESP 14–18; TEMP 36.4; O2SAT 96–98
[2024-09-19] MEDS: KETOROLAC (*BKC) 60 MG/2 ML VIAL IM (15:10)
[2024-09-19] MEDS: METOPROLOL TARTRATE 50 MG TAB PO (15:10)
--- NOTE | 2024-09-19 15:12 | ED.HA ---
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 Currently blood pressure 155/98 with some no blurry vision does have light sensitivity, is currently no nausea or vomiting no chest pain no shortness of breath no neurological deficits. MD elicited complaint: headache and migraine Onset description: gradually Location: left and frontal Severity: moderate Pain scale (0-10): 6 Quality & Timing: throbbing and pulsatile Related Data Home Medications Medication Instructions Recorded Confirmed albuterol sulfate 90 mcg/actuation 1 puff inhalation Q4H PRN 08/12/24 08/16/24 aerosol inhaler Shortness Of Breath Or Wheezing amlodipine 5 mg tablet 10 mg PO DAILY 08/12/24 08/16/24 diclofenac sodium 50 mg 50 mg PO Q12H PRN Pain (Scale 08/12/24 08/16/24 tablet,delayed release Score 1-3) Allergies Allergy/AdvReac Type Severity Reaction Status Date / Time adhesive Allergy Intermediate Blister Verified 09/19/24 14:54 diphenhydramine Allergy Stopped Verified 09/19/24 14:54 [From Benadryl] Breathing lisinopril AdvReac Mild cough Uncoded 09/03/24 09:01 Review of Systems Review of Systems: All systems reviewed & are unremarkable except as noted in HPI and below PMFSH Past Medical History Medical History Ankle fracture, left Anxiety and depression History of heart attack (2008) Hypertension Migraine Skull fracture Wrist fracture, bilateral Surgical History Surgical History History of cholecystectomy History of ovarian cystectomy Right-sided Family History Family History Mother Heart attack Father Heart attack COPD (chronic obstructive pulmonary disease) Grandparent Breast cancer Grandparent Breast cancer Social History Social History Social History: Surrogate medical decision maker: Cori Fulton, daughter Code status: Full code. Smoking status: Never smoker Second hand tobacco smoke exposure: Yes Alcohol intake: never Substance use: never Do You Feel Safe in your Home?: Yes Lack of Transportation: No Lack of Food: Never True Current Housing: I Have Housing Concerned About Future Housing: No Difficulty Paying Gas/Electric Bills: No Difficulty Paying for Meds: No Currently Unemployed: No Education: High School Diploma/GED Difficulty w/ Childcare or Family Care: No Spiritual care concerns: No Exam Const: General: healthy appearing and no acute distress Nutritional Appearance: well nourished Orientation/consciousness: patient oriented x3 Limitations: no limitations Eyes: Conjunctivae: conjunctivae normal Pupils: Equal, round and reactive pupils present EOM: EOMs intact bilaterally Neck: Neck: normal visual inspection Chest: Chest palpation & inspection: normal inspection of the chest Resp: Effort & Inspection: normal respiratory effort Auscultation: clear to auscultation bilaterally Cardio: Rate: regular rate Rhythm: regular rhythm GI: GI Palp: Yes Soft to palpation Auscultation: normal bowel sounds Skin: General skin exam: normal color Neuro: General: patient oriented x3, moves all extremities, no meningeal signs, no focal motor deficits and CN's II-XI intact bilaterally Cranial nerves: Yes Nystagmus not present Speech: julian
== END 2024-09-19 15:55 | disposition home or self-care (01) ==
LOC: CHSED 15:22
PROVIDERS: Emergency Provider Emergency Medicine; PCP Nurse Practitioner Family
DX: I10 Essential (primary) hypertension (principal); G43.909 Migraine, unspecified, not intractable, without status migrainosus; I25.2 Old myocardial infarction
CPT/HCPCS: 96372; 99283; A9270; J1885

== ENCOUNTER 2024-10-01 19:10 | Emergency (ER) | payer OTHER, SELFPAY ==
--- NOTE | ~2024-10-01 | XR_ITS ---
HISTORY: injury COMPARISON: 05/29/2024 TECHNIQUE: 4 views of the left ankle were performed. FINDINGS: No acute or subacute fracture is identified. Redemonstration of ossification of the insertion of the Achilles tendon. Calcaneal spur again noted. Medial and lateral soft tissue swelling is present. IMPRESSION: Degenerative disease without acute or subacute fracture, as detailed above. Reviewed, dictated and finalized at location A. MACY DATA ANALYST IMPRESSION: Degenerative disease without acute or subacute fracture, as detail ed above.
[2024-10-01 19:10] VITALS: BP 152/103; PULSE 106; RESP 18; TEMP 36.6; O2SAT 97
--- NOTE | 2024-10-01 19:11 | ED_ITS ---
HPI - Extremity Injury (Lower) General Chief Complaint: Extremity Injury, Lower Stated Complaint: L ankle Injury Time Seen by Provider: 10/01/24 19:11 Source: patient Mode of arrival: ambulatory Limitations: no limitations History of Present Illness HPI Narrative: Patient is a 53-year-old female with a left ankle injury and twist to the ankle earlier this morning. She has pain on the lateral aspect of the ankle. No other associated injuries. she was walking in her backyard and the grass had water on the area and she slipped. MD complaint: ankle injury ( Left) Onset (ago): day(s) (1) Injury: Left: ankle Type of Injury: inversion Place: home and street/outdoors Severity: moderate Severity scale (1-10): 5 Relieving factors: immobilization Exacerbating factors: weight bearing, movement and palpation Context: walking Associated symptoms: swelling and able to partially bear weight Other symptoms: none Treatments prior to arrival: cold therapy Related Data Home Medications Medication Instructions Recorded Confirmed albuterol sulfate 90 mcg/actuation 1 puff inhalation Q4H PRN 08/12/24 10/01/24 aerosol inhaler Shortness Of Breath Or Wheezing diclofenac sodium 50 mg 50 mg PO Q12H PRN Pain (Scale 08/12/24 10/01/24 tablet,delayed release Score 1-3) Allergies Allergy/AdvReac Type Severity Reaction Status Date / Time adhesive Allergy Intermediate Blister Verified 10/01/24 19:15 diphenhydramine Allergy Stopped Verified 10/01/24 19:15 [From Benadryl] Breathing lisinopril AdvReac Mild cough Uncoded 09/03/24 09:01 Review of Systems Review of Systems: All systems reviewed & are unremarkable except as noted in HPI and below Constitutional: Constitutional: Reports no additional constitutional complaints Eyes: Eyes: Reports no additional eye complaints ENT: Reports system reviewed and no additional complaints, except as documented Cardiovascular: Cardiovascular: Reports no additional cardiovascular co mplaints Respiratory: Respiratory: Reports no additional respiratory complaints Gastrointestinal: Gastrointestinal: Reports no additional gastrointestinal complaints Genitourinary: Genitourinary: Reports no additional female genitourinary complaints Musculoskeletal: Musculoskeletal: Reports no additional musculoskeletal complaints Integumentary/Breasts: Skin/Breast: Reports system reviewed and no additional complaints, except as docu Neurologic: Reports system reviewed and no additional complaints, except as documented Psychiatric: Psychiatric: Reports no additional psychiatric complaints Endocrine: Endocrine: Reports no additional endocrine complaints Hematologic/Lymphatic: Hematologic/Lymphatic: Reports no additional hematolog ic/lymphatic complaints Allergic/Immunologic: Allergic/Immunologic: Reports no additional allergic/immunologic complaints [facility] Past Medical History Medical History Ankle fracture, left Anxiety and depression History of heart attack (2008) Hypertension Migraine Skull fracture Wrist fracture, bilateral Surgical History Surgical History History of cholecystectomy History of ovarian cystectomy Right-sided Family History Family History Mother Heart attack Father Heart attack COPD (chronic obstructive pulmonary disease) Grandparent Breast cancer Grandparent Breast cancer Social History Social History Social History: Surrogate medical decision maker: Cori Donaldo, daughter Code status: Full code. Smoking status: Never smoker Second hand tobacco smoke exposure: Yes Alcohol intake: never Substance use: never Do You Feel Safe in your Home?: Yes Lack of Transportation: No Lack of Food: Never True Current Housing: I Have Housing Concerned About Future Housing: No Difficulty Paying Gas/Electric Bills: No Difficulty Paying for Meds: No Currently Unemployed: No Education: High School Diploma/GED Difficulty w/ Childcare or Family Care: No Spiritual care concerns: No Exam Const: General: healthy appearing Nutritional Appearance: well nourished Orientation/consciousness: patient oriented x3 Limitations: no limitations HENMT: Head: normal to inspection Ears: external ears normal Face/Nose/Sinus: Normal external nose present Eyes: Conjunctivae: conjunctivae normal Pupils: Equal, round and reactive pupils present EOM: EOMs intact bilaterally Neck: Neck: normal visual inspection Chest: Chest palpation & inspection: normal inspection of the chest Resp: Effort & Inspection: normal respiratory effort and not labored Auscultation: clear to auscultation bilaterally and no crackles Cardio: Rate: regular rate Rhythm: regular rhythm Heart sounds: no murmurs GI: Inspection: non-distended GI Palp: Yes Soft to palpation and No Tenderness to palpation present (GI) Auscultation: normal bowel sounds : General: Yes bladder normal to palpation Back/Spine/Pelvis: Back: no CVA tenderness Skin: General skin exam: normal color Rashes: no rashes Wounds: no wounds Neuro: General: patient oriented x3 Cranial nerves: Yes Nystagmus not present Speech: normal speech Gait exam (Neuro): gait abnormal Other: Difficulty walking secondary to left ankle injury Extrem: General: abnormal to inspection, no clubbing, cyanosis or edema and no pedal edema Other: left ankle lateral aspect around the malleolus has swelling and erythema and tenderness as well as tenderness of the Achilles region on the left side Psych: Mental Status: mental status grossly normal Affect: normal affect Attitude: cooperative Course Vital Signs Vital signs: Vital Signs Temperature 36.6 C 10/01/24 19:10 Pulse Rate 106 H 10/01/24 19:10 Respiratory Rate 18 10/01/24 19:10 Blood Pressure 152/103 H 10/01/24 19:10 Pulse Oximetry 97 10/01/24 19:10 Oxygen Delivery Room Air 10/01/24 19:10 Temperature 36.6 C 10/01/24 19:10 Pulse Rate 106 H 10/01/24 19:10 Respiratory Rate 18 10/01/24 19:10 Blood Pressure 152/103 H 10/01/24 19:10 Pulse Oximetry 97 10/01/24 19:10 Oxygen Delivery Room Air 10/01/24 19:10 MDM - Extremity Injury (Lower) MDM Narrative Medical decision making narrative: patient is a 53-year-old female with a left ankle injury. We will get an x-ray at this time. She declined pain management. Imaging Data Attestation: I personally reviewed and interpreted this imaging study as follows: Radiologist's impression: Left ankle x-ray is negative for acute process Discharge Plan Discharge Clinical Impression: Sprain of ankle Patient Disposition: Home, Self-Care Condition: Stable Instructions: Ankle Sprain (ED) Prescriptions: No Action tramadol 50 mg tablet 50 mg PO Q6H PRN (Reason: pain) Qty: 20 0RF diclofenac sodium 3 % gel 1 applic topical BID PRN (Reason: pain (scale score 4-6)) Qty: 100 0RF alprazolam 1 mg tablet 1 mg PO QHS PRN (Reason: anxiety) Qty: 20 0RF topiramate 50 mg tablet 50 mg PO BID Qty: 60 2RF rizatriptan 10 mg tablet See Rx Instructions PO .COMPLEX Qty: 14 0RF Rx Instructions: take 1 tab at onset of headache; if no relief may repeat 1 tab after at least 2 hrs; max = 3 tabs/24 hr PO cyclobenzaprine 10 mg tablet 10 mg PO TID PRN (Reason: muscle spasm) Qty: 1 0RF amlodipine 10 mg tablet 10 mg PO DAILY Qty: 90 1RF aspirin 81 mg capsule 81 mg PO DAILY Qty: 90 1RF atenolol 25 mg tablet 25 mg PO DAILY Qty: 90 1RF atorvastatin 40 mg tablet 40 mg PO DAILY Qty: 90 1RF buspirone 7.5 mg tablet 7.5 mg PO BID 90 Days Qty: 180 1RF hydrochlorothiazide 12.5 mg tablet 12.5 mg PO QHS Qty: 90 1RF Rx Instructions: please take care with positional changes losartan 100 mg tablet 100 mg PO DAILY Qty: 90 1RF escitalopram oxalate 10 mg tablet 10 mg PO DAILY 90 Days Qty: 90 1RF diclofenac sodium 50 mg tablet,delayed release (DR/EC) 50 mg PO Q12H PRN (Reason: Pain (Scale Score 1-3)) albuterol sulfate 90 mcg/actuation HFA aerosol inhaler 1 puff inhalation Q4H PRN (Reason: Shortness Of Breath Or Wheezing) Rx Instructions: INHALE 1 PUFF BY MOUTH EVERY 4 HOURS NEEDED FOR SHORTNESS OF BREATH OR WHEEZING Follow-up/Referrals: Bj Perry APRN [Primary Care Provider] - Time of Disposition: 20:31
--- NOTE | 2024-10-01 20:32 | PC.NURSE ---
Distal CMS intact post placement of VINCENT wrap to left ankle.
[2024-10-01 20:33] VITALS: BP 144/75; PULSE 89; RESP 16; TEMP 36.7; O2SAT 98
== END 2024-10-01 20:38 | disposition home or self-care (01) ==
PROVIDERS: Emergency Provider Emergency Medicine; PCP Nurse Practitioner Family
DX: S93.402A Sprain of unspecified ligament of left ankle, initial encounter (principal); I10 Essential (primary) hypertension; I25.2 Old myocardial infarction; X50.0XXA Overexertion from strenuous movement or load, initial encounter
CPT/HCPCS: 73610; 99283

== ENCOUNTER 2025-05-27 09:06 | Emergency (ER) | payer OTHER, SELFPAY ==
--- NOTE | ~2025-05-27 | XR_ITS ---
EXAMINATION: XR shoulder RT min 2V, XR clavicle RT DATE: 05/27/2025 09:44 INDICATION: Right shoulder injury post fall TECHNIQUE: 1. AP internally and externally rotated, AP oblique externally rotated and transscapular Y views of t he right shoulder were obtained. 2. AP and cephalad angled AP view of the right clavicle were obtained. COMPARISON: None FINDINGS: Normal alignment. No fracture. Glenohumeral joint spaces normal. Mild, clavicular osteoarthritis wit h small loose osteochondral body versus heterotopic ossicle along the caudal margin of the joint spac e. Mild hypertrophic change along the greater tuberosity. Soft tissues are unremarkable. Visualized p ortion of the right lung are clear. IMPRESSION: Mild right stinson clavicular osteoarthritis. No acute osseous abnormality. Reviewed, dictated and finalized at location B. IMPRESSION: Mild right stinson clavicular osteoarthritis. No acute osseous abnormality.
--- NOTE | ~2025-05-27 | XR_ITS ---
EXAMINATION: XR wrist RT min 3V DATE: 05/27/2025 09:45 INDICATION: Right wrist injury post fall TECHNIQUE: Posteroanterior, ulnar deviation, oblique, and lateral views of the right wrist were obtai fanta. COMPARISON: none FINDINGS: Again seen is a corticated ossicle along the dorsal rim of the lunate fossa of the distal right radiu s consistent with a minimally displaced chronic nonunited fracture fragment. Alignment is otherwise n ormal. No acute fractures identified. Polyarticular osteoarthritis, mild at the first carpometacarpal , first interphalangeal and first and third metacarpophalangeal joints. IMPRESSION: 1. No acute osseous abnormality. Reviewed, dictated and finalized at location B.
--- NOTE | ~2025-05-27 | XR_ITS ---
EXAMINATION: XR knee LT 3V DATE: 05/27/2025 09:45 INDICATION: Left knee injury post fall TECHNIQUE: Weight bearing AP, lateral and sunrise views of the left knee were obtained. COMPARISON: 01/17/2024 FINDINGS: Alignment is normal. No fracture. Joint spaces are normal. Small enthesophyte at the proximal pole o f the patella. No joint effusion/layering lipohemarthrosis. Mild prepatellar soft tissue swelling. IMPRESSION: 1. Left knee joint effusion with no acute osseous abnormality. Reviewed, dictated and finalized at location B.
[2025-05-27 09:06] VITALS: BP 157/101; PULSE 88; RESP 18; TEMP 36.3; O2SAT 98
--- OUTSIDE RECORDS SUMMARY | 2025-05-27 09:19 | XMS_ITS | Clinical Summary ---
Author Organization [facility] [employer] Address [address] [place] [address] Care Team Providers Care Integrated Program Teacher Name Role Phone Unavailable Primary Care Provider Unavailabl e Source Comments [facility] [employer],non-owned Affiliates and Associated Physician Practices is amultiple site organization consisting of ambulatory clinics and hospital sitesin [place], [place], [place] and [place]. This disclosure is being madepursuant to the Care Everywhere program and may not contain all information available regarding this patient. Last updated 18.[facility] [employer] Allergies Active Allergy Reactions Criticality Noted Date Comments Diphenhydramine Other Medium 08/01/2012 I can't breath, IV benadryl only, can take by mouth Medications * Be aware that medications may not be up to date on this document. Alwaysverify current medications with the patient. ALPRAZolam (XANAX) 1 MG tablet Take 0.5 mg by mouth 2 times daily Active oxyCODONE-acet aminophen (PERCOCET) 5-325 MG tablet Take 1 Tab by mouth every 6 hours as needed for Pain Active cyclobenzaprin e (FLEXERIL) 10 MG tablet Take 1 Tab by mouth 3 times daily as needed for Muscle Spasms 15 Tab 0 5 Active Additional Information Patient not taking.Reported on 06/25/2018 ibuprofen (MOTRIN) 600 MG tablet Take 1 tablet by mouth every 6 hours as needed for Pain 30 tablet 9 Active Additional Information Patient not taking.Reported on 01/11/2020 albuterol-ipra tropium (COMBIVENT RESPIMAT) 20-100 MCG/ACT inhaler Inhale 1 puff by mouth 4 times daily 1 Inhaler 0 Active methylPREDNISo lone (MEDROL DOSEPAK) 4 MG tablet Take by mouth as directed Follow package insert dosing for six day supply. 21 tablet 2 Active butalbital-elaina taminophen-caf feine (FIORICET) 50-325-40 MG tablet Take 1 (one) tablet by mouth every 6 hours as needed for Headache Do not exceed 3 grams of acetaminophen (TYLENOL) daily. 20 tablet 2 Active topiramate (TOPAMAX) 50 MG tablet Take 1 (one) tablet by mouth at bedtime 30 tablet 2 Active Active Problems Problem Noted Date Diagnosed Date Wheezing 01/11/2020 Flu 01/11/2020 Influenza 01/11/2020 Acute cystitis without hematuria 01/11/2020 Headache 08/15/2013 Overview (10/04/2015): Intractable migraine 08/15/2013 Chest pain 08/15/2013 Fall 03/23/2013 Ankle sprain 03/23/2013 Low back pain 02/27/2013 Gastritis 08/29/2012 Abdominal pain, epigastric 08/28/2012 chest pain 08/28/2012 Overview (02/27/2013): Negative NM stress test in 08/2012 Obesity 08/28/2012 Hypertension 08/28/2012 Foot pain 03/07/2012 Abdominal pain 08/13/2009 Overview (08/27/2015): Chest pain 08/12/2009 Back pain 09/28/2008 Herniated disc Overview (02/27/2013): L4,L5 Generalized anxiety disorder Pure hypercholesterolemia Anxiety Resolved Problems Problem Noted Date Diagnosed Date Resolved Date Productive cough 01/11/2020 02/08/2020 Immunizations Immunization Administration Dates Next Due INFLUENZA VACCINE 08/16/2013,01/22/2013,08/29/20 12 PNEUMOCOCCAL PCV7 CONJ, PEDS 03/09/2009 Family History Medical History Relation Name Comments Heart Failure Father Hypertension Father [place] Father Heart Failure Maternal Grandfather Heart Failure Maternal Grandmother Diabetes Mother Heart Failure Mother Heart Surgery Mother Hypertension Mother [place] Mother Migraine Mother Stroke Mother Heart Failure Paternal Grandfather Heart Failure Paternal Grandmother Relation Name Status Comments Father Maternal Grandfather Maternal Grandmother Mother Paternal Grandfather Paternal Grandmother Social History Tobacco Use Types Packs/Day Years Used Date Smoking Tobacco: Never Smokeless Tobacco: Never Alcohol Use Standard Drinks/Week Comments No 0 (1 standard drink = 0.6 oz pur e alcohol) Comments No Sex and Gender Information Value Date Recorded Sex Assigned at Not on file 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 Gender Identity Not on file Sexual Orientation Not on file Last Filed Vital Signs Vital Sign Reading Time Taken Comments Blood Pressure 153/63 06/17/2022 3:30 PM CDT Pulse 71 06/17/2022 3:47 PM CDT Temperature 36.4 C (97.5 F) 06/17/2022 10:30 AM CDT Respiratory Rate 13 06/17/2022 3:47 PM CDT Oxygen Saturation 100% 06/17/2022 3:47 PM CDT Inhaled Oxygen Concentration - - Weight 95.3 kg (210 lb) 06/17/2022 10:30 AM CDT Height 160 cm (5' 3) 06/17/2022 10:30 AM CDT Body Mass Index 37.2 06/17/2022 10:30 AM CDT Plan of Treatment Health Maintenance Due Date Last Done Comments COLOGUARD (AGES 45-75) - COLON CA SCREENING 1968 COLON MONITORING 1968 COLONOSCOPY - COLON CA SCREENING 1968 CT COLONOGRAPHY - COLON CA SCREENING 1968 Colorectal Cancer Screening 1968 FIT - COLON CA SCREENING 1968 FLEX SIG - COLON CA SCREENING 1968 MAMMOGRAM 1968 HIV SCREENING 1983 HEPATITIS C SCREENING 10/19/1986 DTAP/TDAP/TD VACCINES (1 - Tdap) 1987 HEPATITIS B VACCINE (1 of 3 - 19+ 3-dose series) 1987 PAP SMEAR 1989 PNEUMOCOCCAL VACCINE 50+ (1 of 1 - PCV) 2018 ZOSTER VACCINE (1 of 2) 2018 COVID-19 VACCINE (3 - season) 2024 06/29/2021, 03/05/2021 DEPRESSION SCREENING 11/27/2024 INFLUENZA VACCINE (Season Ended) 2025 09/27/2013, 08/16/2013, 01/22/2013, Additional history exists HIB VACCINE Aged Out No longer eligi ble based on patient's age to complete this topic HPV VACCINE Aged Out No longer eligi ble based on patient's age to complete this topic MENINGOCOCCAL (Group B) VACCINE SHARED DECISION-MAKING Aged Out No longer eligible based on patient's age to complete this topic MENINGOCOCCAL GROUPS A/C/Y/W VACCINE Aged Out No longer eligible based on patient's age to complete this topic Advance Directives Documents on File Type Date Recorded Patient Client Technical Specialist Expl anation Adv Directive/Living Will/POA 04/16/2013 10:17 AM Adv Directive/Living Will/POA 03/23/2013 12:11 PM Medication Assistanc e Program Adv Directive/Living Will/POA 03/04/2013 7:58 AM Adv Directive/Living Will/POA 02/26/2013 12:41 PM schc pap medication * Full Code (Latest Code Status on File) Date Activated Date Inactivated Comments 01/11/2020 8:52 PM 01/14/2020 6:50 PM * Full Code Date Activated Date Inactivated Comments 01/11/2020 7:25 PM 01/11/2020 8:52 PM * FULL RESUSCITATION Date Activated Date Inactivated Comments 08/15/2013 10:07 PM 08/18/2013 12:39 PM * FULL RESUSCITATION Date Activated Date Inactivated Comments 02/26/2013 5:28 PM 03/01/2013 1:48 PM * FULL RESUSCITATION Date Activated Date Inactivated Comments 01/21/2013 8:15 PM 01/22/2013 2:47 PM
--- OUTSIDE RECORDS SUMMARY | 2025-05-27 09:19 | XMS_ITS | Clinical Summary ---
Author Organization [facility] Address [address] [place] [address] Care Team Providers Care Pan Washer Hand Name Role Phone Bj Perry RIANNA Primary Care Provider [phone] Allergies Active Allergy Reactions Criticality Noted Date Comments Diphenhydramine Anaphylaxis High 02/22/2023 ONLY INTRAVENEOUS Medications amLODIPine (NORVASC) 10 MG tablet Take 1 tablet (10 mg total) by mouth daily. 04/14/2023 Active albuterol sulfate HFA 108 (90 Base) MCG/ACT inhaler Inhale 1 puff into the lungs 4 (four) times daily. 10/03/2024 Active ALPRAZolam (XANAX) 0.5 MG tablet Take 2 tablets (1 mg total) by mouth nightly as needed. 04/12/2024 Active atorvastatin (LIPITOR) 40 MG tablet Take 1 tablet (40 mg total) by mouth daily. 10/03/2024 Active busPIRone (BUSPAR) 7.5 MG tablet Take 1 tablet (7.5 mg total) by mouth 3 (three) times daily. 10/03/2024 Active escitalopram (LEXAPRO) 10 MG tablet Take 1 tablet (10 mg total) by mouth daily. 10/03/2024 Active hydroCHLOROthia zide (MICROZIDE) 12.5 MG capsule Take 1 capsule (12.5 mg total) by mouth daily. 10/03/2024 Active losartan (COZAAR) 100 MG tablet Take 1 tablet (100 mg total) by mouth daily. 10/03/2024 Active rizatriptan (MAXALT) 10 MG tablet Take 1 tablet (10 mg total) by mouth as needed. 10/03/2024 Active topiramate (TOPAMAX) 50 MG Tab Take 1 tablet (50 mg total) by mouth daily. 10/03/2024 Active Active Problems Problem Noted Date Diagnosed Date Sprain of anterior talofibul ar ligament of right ankle, subsequent encounter 02/01/2023 Peroneal tendonitis, right 02/01/2023 Sprain of other ligament of right ankle, initial encounter 01/19/2023 Family History Medical History Relation Comments COPD Father Heart Attack Father Heart Attack Mother Relation Status Comments Father Mother Social History Tobacco Use Types Packs/Day Years Used Date Smoking Tobacco: Never Smokeless Tobacco: Never Tobacco Cessation:Counseling Given: Not Answered Alcohol Use Standard Drinks/Week Comments Not Currently 0 (1 standard drink = 0.6 oz pur e alcohol) Comments No Sex and Gender Information Value Date Recorded Sex Assigned at Female 02/14/2025 11:44 AM CDT 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 Gender Identity Not on file Sexual Orientation Not on file Last Filed Vital Signs Vital Sign Reading Time Taken Comments Blood Pressure 156/96 02/14/2025 3:50 PM CDT Pulse 89 02/14/2025 11:48 AM CDT Temperature 36.2 C (97.2 F) 02/14/2025 11:48 AM CDT Respiratory Rate 14 02/14/2025 11:48 AM CDT Oxygen Saturation 100% 02/14/2025 3:50 PM CDT Inhaled Oxygen Concentration - - Weight 93.1 kg (205 lb 3.2 oz) 02/14/2025 11:48 AM CDT Height 160 cm (5' 3) 02/14/2025 11:48 AM CDT Body Mass Index 36.35 02/14/2025 11:48 AM CDT Plan of Treatment Health Maintenance Due Date Last Done Comments Cervical Cancer Screening Pa p Smear (Age 30 to 64) Every 3 Years 1968 Colorectal Cancer Screening Colonoscopy (10 Years) 1968 Annual Physical 1971 Hepatitis C 1986 DTaP, Tdap and Td Vaccines ( 1 - Tdap) 1987 Hepatitis B Vaccines (1 of 3 - 19+ 3-dose series) 1987 Mammogram Screening 2008 Pneumococcal Vaccine: 50+ Ye ars (1 of 1 - PCV) 2018 03/09/2009 Zoster Vaccines (1 of 2) 2018 COVID-19 Vaccine (2023-2 5 season) 2024 Cervical Cancer Screening Pa p with HPV Testing (Age 30 to 64) Every 5 Years 04/15/2029 04/15/2024 Cervical Cancer Screening with HPV 04/15/2029 Meningococcal B Vaccine Aged Out No l onger eligible based on patient's age to complete this topic Meningococcal Vaccine Aged Out No halina omar eligible based on patient's age to complete this topic RSV Immunizations Under 20 Months Aged Out No longer eligible based on patient's age to complete this topic Procedures Procedure Name Priority Date/Time Associated Diagnosis Comments HUMAN PAPILLOMAVIRUS, HIGH-RISK TYPES Routine 04/15/2024 8:00 AM CDT from Last 3 Months or Most Recently Relevant to Health Maintenance Results * HUMAN PAPILLOMAVIRUS, HIGH-RISK TYPES (04/15/2024 8:00 AM CDT) SPEC DESCRIPTION CERVIX 04/17/20 3:01 PM CDT [facility] HPV DNA HIGH RISK NEGATIVE NEGATIVE 04/18/2024 1:07 AM CDT [facility] Comment:SEE CYTOLOGY REPORT 04/15/2024 8:00 AM CDT Bj Perry AIRPORT OPERATIONS SUPERVISOR PATHOLOGY/CYTOLOGY ORDERABLES Final Result [facility] [address] [place] [address], from Last 3 Months or Most Recently Relevant to Health Maintenance Insurance [facility] Care Teams Pan Washer Hand Relationship Specialty Start Date End Date Bj Perry FNP [address] [place] [phone] PCP - General Nurse Practitioner Family 02/14/25
--- OUTSIDE RECORDS SUMMARY | 2025-05-27 09:19 | XMS_ITS | Clinical Summary ---
Author Organization [facility] Address [address] [place] [address] Phone Care Team Providers Care Skidder Runner Name Role Phone Unavailable Primary Care Provider Unavailabl e Allergies Active Allergy Reactions Criticality Noted Date Comments Diphenhydramine Other (See Comments) Medium 08/01/2012 I can't breath, IV benadryl only, can take by mouth Medications hydrOXYzine HCL (ATARAX) 25 mg tablet Take 1 Tablet (25 mg) by mouth every 8 hours as needed for Anxiety or Insomnia. 10 Tablet 03/15/2022 Active amLODIPine (NORVASC) 5 mg tablet Take 1 Tablet (5 mg) by mouth daily. 30 Tablet 03/15/2022 Active ibuprofen (MOTRIN) 600 mg tablet Take 1 Tablet (600 mg) by mouth every 6 hours as needed for mild pain. 20 Tablet 04/13/2022 1:30 PM CDT 04/13/2022 Active Active Problems Problem Noted Date Diagnosed Date Chest pain 03/14/2022 Nausea & vomiting 03/14/2022 Shortness of breath on exertion 03/14/2022 Hyperkalemia 03/14/2022 Benign hypertension 03/14/2022 Anxiety 03/14/2022 Immunizations Immunization Administration Dates Next Due Influenza Seasonal Unspecifi ed Formulation IM 09/27/2013,08/16/2013,01/22/2013,2011 Pneumococcal 7-valent conjug ate vaccine IM 03/09/2009 Family History Medical History Relation Name Comments Heart Disease Father Heart Disease Mother Relation Name Status Comments Father Mother Social History Tobacco Use Types Packs/Day Years Used Date Smoking Tobacco: Never Smokeless Tobacco: Never Alcohol Use Standard Drinks/Week Comments Never 0 (1 standard drink = 0.6 oz pur e alcohol) Financial Resource Strain Answer Date R ecorded How hard is it for you to pa y for the very basics like food, housing, medical care, and heating? Very hard 04/13/2022 Food Insecurity Answer Date Recorded In the past 12 months, have you worried that your food would run out before you had money to buy more? Often true 04/13/2022 In the past 12 months, did y ou run out of food and didn't have money to buy more? Often true 04/13/2022 Transportation Needs Answer Date Record ed In the past 12 months, has l ack of transportation kept you from medical appointments or from getting medications? No 03/27 In the past 12 months, has l ack of transportation kept you from meetings, work, or from getting things needed for daily living? No 04/13/2022 Housing Stability Answer Date Recorded In the last 12 months, was t here a time when you were not able to pay the mortgage or rent on time? Yes 04/13/2022 (RETIRED) In the last 12 months, how many places have you lived? 1 04/13/2022 (RETIRED) In the last 12 mon, was there a time when you did not have a steady place to sleep or slept in a long term (including now)? 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 Gender Identity Not on file Sexual Orientation Not on file Last Filed Vital Signs Vital Sign Reading Time Taken Comments Blood Pressure 146/90 06/06/2022 10:32 PM CDT Pulse 80 04/12/2022 5:03 PM CDT Temperature 36.2 C (97.2 F) 06/06/2022 3:37 PM CDT Respiratory Rate 16 06/06/2022 10:32 PM CDT Oxygen Saturation 97% 06/06/2022 10:32 PM CDT Inhaled Oxygen Concentration - - Weight 95.3 kg (210 lb) 04/13/2022 10:41 AM CDT Height 160 cm (5' 3) 04/13/2022 10:41 AM CDT Body Mass Index 37.2 04/13/2022 10:41 AM CDT Plan of Treatment Health Maintenance Due Date Last Done Comments DTAP/TDAP/TD VACCINES (1 - Tdap) 1987 HEPATITIS B VACCINES (1 of 3 - 19+ 3-dose series) 1987 HPV/Cotest (21-29) 1989 CERVICAL CANCER SCREENING 1998 HPV/Cotest (30-65) 1998 PAP SMEAR 1998 BREAST CANCER SCREENING 2008 COLORECTAL SCREENING 2013 Colorectal Cancer Screening 2013 FIT-DNA Q 3 years 2013 FIT/FOBT Q 1 year 2013 Flex Sig/CT Colonography Q 5 years 2013 ZOSTER VACCINE (1 of 2) 2018 INFLUENZA VACCINE (#1) 2024 3, 08/16/2013, 01/22/2013, Additional history exists Insurance [employer] (INTER[employer]) [facility] Advance Directives For more information, please contact: [phone] * Full Code (Latest Code Status on File) Date Activated Date Inactivated Comments 03/14/2022 8:01 PM 03/15/2022 4:46 PM
[2025-05-27] MEDS: ONDANSETRON HCL ODT 4 MG TABLET PO (09:44)
[2025-05-27] MEDS: KETOROLAC (*BKC) 60 MG/2 ML VIAL IM (09:44)
--- NOTE | 2025-05-27 10:07 | ED_ITS ---
HPI - Fall General Chief Complaint: Fall Stated Complaint: fall; shoulder, wrist, and knee pain Time Seen by Provider: 05/27/25 09:12 Source: patient and family Mode of arrival: ambulatory Limitations: no limitations History of Present Illness HPI Narrative: this is a 54-year-old female with significant past medical history presents after she was cleaning fluids slipped on wet floor injuring her right shoulder r ight wrist and left knee no head injury no loss of consciousness patient rates her pain about an 8/10 with some nausea with no vomiting no other injuries noted no neurological deficits. Has decreased range of motion to her right shoulder secondary to pain with no bruising. Right wrist has good range of motion although limited secondary to pain with no numbness or tingling. complaint: fall Onset (ago): hour(s) Fall from: standing Fall witnessed: yes, by family Place fall occurred: work Loss of consciousness: none Prolonged down time: no Location of injury - extremities: Left: knee ( Tenderness and mild swelling) Severity: moderate Severity scale (1-10): 8 Related Data Home Medications ?Medication ?Instructions ?Recorded ?Confirmed ?Last Taken ?Type albuterol sulfate 90 mcg/actuation 1 puff inhalation Q4H PRN 08/12/24 03/10/25 10/01/24 History aerosol inhaler Shortness Of Breath Or Wheezing aspirin 81 mg tablet,delayed 81 mg PO DAILY 03/10/25 03/10/25 Unknown History release Allergies Allergy/AdvReac Type Severity Reaction Status Date / Time adhesive Allergy Intermediate Blister Verified 05/27/25 09:14 diphenhydramine (From Allergy Stopped Verified 05/27/25 09:14 Benadryl) Breathing lisinopril AdvReac Mild cough Uncoded 05/27/25 09:14 Review of Systems Review of Systems: All systems reviewed & are unremarkable except as noted in HPI and below PMFSH Past Medical History Medical History Hypertension Wrist fracture, bilateral Ankle fracture, left Skull fracture History of heart attack (2008) Migraine Anxiety and depression Surgical History Surgical History History of ovarian cystectomy Right-sided History of cholecystectomy Family History Family History Mother Heart attack Father Heart attack COPD (chronic obstructive pulmonary disease) Grandparent Breast cancer Grandparent Breast cancer Social History Social History Social History: Surrogate medical decision maker: Cori Fulton, char Code status: Full code. Smoking status: Never smoker Second hand tobacco smoke exposure: Yes Alcohol intake: never Substance use: never Do You Feel Safe in your Home?: Yes Lack of Transportation: No Lack of Food: Never True Current Housing: I Have Housing Concerned About Future Housing: No Difficulty Paying Gas/Electric Bills: No Difficulty Paying for Meds: No Currently Unemployed: No Education: High School Diploma/GED Difficulty w/ Childcare or Family Care: No Spiritual care concerns: No Exam Const: General: healthy appearing, no acute distress and alert Nutritional Appearance: well nourished and obese Orientation/consciousness: patient oriented x3 Limitations: no limitations HENMT: Head: normal to inspection Ears: external ears normal Face and sinus: normal facial exam Neck: Neck: normal visual inspection, no lymphadenopathy and no meningeal signs Chest: Chest palpation & inspection: normal inspection of the chest Resp: Effort & Inspection: normal respiratory effort Auscultation: clear to auscultation bilaterally Cardio: Rate: regular rate Rhythm: regular rhythm GI: GI Palp: Yes Soft to palpation Auscultation: normal bowel sounds Back/Spine/Pelvis: Back: no CVA tenderness Skin: General skin exam: normal color Rashes: no rashes Wounds: no wounds Neuro: General: patient oriented x3, moves all extremities, no meningeal signs and no focal motor deficits Extrem: Other: tenderness right shoulder right wrist and left knee. Course Course Emergency Course: Patient received 60mg IM Toradol for pain relief, after reassessment patient's pain level has improved received Zofran ODT for nausea. X-rays performed of the right shoulder and clavicle were negative for acute fractures. X-ray of the wrist and knee negative for fractures. Vital Signs Vital signs: Vital Signs Temperature 36.3 C L 05/27/25 09:06 Pulse Rate 88 05/27/25 09:06 Respiratory Rate 18 05/27/25 09:06 Blood Pressure 157/101 H 05/27/25 09:06 Pulse Oximetry 98 05/27/25 09:06 Oxygen Delivery Room Air 05/27/25 09:06 Temperature 36.3 C L 05/27/25 09:06 Pulse Rate 88 05/27/25 09:06 Respiratory Rate 18 05/27/25 09:06 Blood Pressure 157/101 H 05/27/25 09:06 Pulse Oximetry 98 05/27/25 09:06 Oxygen Delivery Room Air 05/27/25 09:06 Critical Care Time Critical Care Time Critical Care Time: No Discharge Plan Discharge Clinical Impression: Right shoulder strain, Muscle strain of right wrist, Strain of knee and leg, left Patient Disposition: Home Condition: Stable Instructions: Antibiotic Form, Muscle Strain (ED), Rotator Cuff Injury (ED) Additional Instructions: advised to follow-up with primary care physician, take medicine as prescribed. Patient Language: Slovenian Prescriptions: No Action aspirin 81 mg tablet,delayed release (DR/EC) 81 mg PO DAILY hydralazine 25 mg tablet 25 mg PO BID Qty: 60 5RF diclofenac sodium 3 % gel 1 applic topical BID PRN (Reason: pain (scale score 4-6)) Qty: 100 0RF atenolol 50 mg tablet 50 mg PO DAILY 90 Days Qty: 90 1RF topiramate 50 mg tablet 50 mg PO BID Qty: 60 2RF rizatriptan 10 mg tablet See Rx Instructions PO .COMPLEX Qty: 14 0RF Rx Instructions: take 1 tab at onset of headache; if no relief may repeat 1 tab after at least 2 hrs; max = 3 tabs/24 hr PO cyclobenzaprine 10 mg tablet 10 mg PO TID PRN (Reason: muscle spasm) Qty: 1 0RF amlodipine 10 mg tablet 10 mg PO DAILY Qty: 90 1RF aspirin 81 mg capsule 81 mg PO DAILY Qty: 90 1RF atorvastatin 40 mg tablet 40 mg PO DAILY Qty: 90 1RF buspirone 7.5 mg tablet 7.5 mg PO BID 90 Days Qty: 180 1RF hydrochlorothiazide 12.5 mg tablet 12.5 mg PO QHS Qty: 90 1RF Rx Instructions: please take care with positional changes losartan 100 mg tablet 100 mg PO DAILY Qty: 90 1RF escitalopram oxalate 10 mg tablet 10 mg PO DAILY 90 Days Qty: 90 1RF albuterol sulfate 90 mcg/actuation HFA aerosol inhaler 1 puff inhalation Q4H PRN (Reason: Shortness Of Breath Or Wheezing) Rx Instructions: INHALE 1 PUFF BY MOUTH EVERY 4 HOURS NEEDED FOR SHORTNESS OF BREATH OR WH EEZING alprazolam 1 mg tablet 1 mg PO QHS PRN (Reason: anxiety) Qty: 20 0RF Follow-up/Referrals: Bj Perry APRN [Primary Care Provider] -
--- OUTSIDE RECORDS SUMMARY | 2025-05-27 10:17 | XMS_ITS | Clinical Summary ---
Author Organization [facility] Address [address] [address] Care Team Providers Care Electric Sign Wirer Name Role Phone Unavailable Primary Care Provider Unavailabl e Source Comments [facility],non-owned Affiliates and Associated Physician Practices is amultiple site organization consisting of ambulatory clinics and hospital sitesin [place], [place], [place] and [place]. This disclosure is being madepursuant to the Care Everywhere program and may not contain all information available regarding this patient. 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
--- OUTSIDE RECORDS SUMMARY | 2025-05-27 10:17 | XMS_ITS | Clinical Summary ---
Author Organization [facility] Address [address] [place] [address] Phone Care Team Providers Care Electrical Subcontractor Name Role Phone Unavailable Primary Care Provider [...] place to sleep or slept in a senior living (including now)? 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
--- OUTSIDE RECORDS SUMMARY | 2025-05-27 10:17 | XMS_ITS | Clinical Summary ---
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 Gender Identity Not on file Sexual Orientation [...] SPEC DESCRIPTION CERVIX 04/17/20 3:01 PM CDT [facility] HPV DNA HIGH RISK NEGATIVE NEGATIVE 04/18/2024 1:07 AM CDT [facility] Comment:SEE CYTOLOGY REPORT 04/15/2024 8:00 AM CDT Bj Perry AIRWAY CONTROLLER PATHOLOGY/CYTOLOGY ORDERABLES Final Result [facility] [address] [place] [address], from Last 3 Months or Most Recently Relevant to Health Maintenance Insurance [facility] Care Teams Guidance Director Relationship Specialty Start Date End Date Bj Perry FNP [address] [place] [phone] PCP - General Nurse Practitioner Family 02/14/25
[2025-05-27 10:55] VITALS: BP 139/89; PULSE 86; RESP 16; TEMP 36.6; O2SAT 99
== END 2025-05-27 10:55 | disposition home or self-care (01) ==
PROVIDERS: Emergency Provider Emergency Medicine; PCP Nurse Practitioner Family
DX: S46.911A Strain of unspecified muscle, fascia and tendon at shoulder and upper arm level, right arm, initial encounter (principal); S66.911A Strain of unspecified muscle, fascia and tendon at wrist and hand level, right hand, initial encounter; S86.812A Strain of other muscle(s) and tendon(s) at lower leg level, left leg, initial encounter; I10 Essential (primary) hypertension; I25.2 Old myocardial infarction; W01.0XXA Fall on same level from slipping, tripping and stumbling without subsequent striking against object, initial encounter
CPT/HCPCS: 73000; 73030; 73110; 73562; 96372; 99284; A4565; A9270; J1885

== ENCOUNTER 2025-05-29 10:35 | Outpatient (CLI) | payer OTHER, SELFPAY ==
--- NOTE | ~2025-05-29 | CT_ITS ---
EXAMINATION: CT brain & sinus wo con DATE: 05/29/2025 11:12 INDICATION: Uncontrolled hypertension presenting with transient facial droop and left mouth numbness. TECHNIQUE: Computed tomography (CT) of the brain and paranasal sinuses was performed without intraven ous contrast. Sagittal and coronal reconstructions were performed. Automated exposure control and ite rative reconstruction technique were employed. The dose-length product was 681.0 mGy-cm. COMPARISON: CT dated 08/12/2024 and brain MR dated 08/13/2024 FINDINGS: No acute intracranial hemorrhage, acute infarction or abnormal extra axial fluid collection. Ventricl es are normal and symmetric. No mass/mass effect. The orbits and mastoid air cells are normal. Minimal mucoperiosteal thickening the bilateral ethmoid sinuses. Additional minimal mucosal thickenin g along the medial aspect of the bilateral maxillary sinuses near the bilateral ostiomeatal units whi ch remain widely patent. There is mild alexandra bullosa the bilateral middle turbinates. Nasal septum i s midline. IMPRESSION: 1. Normal brain. No acute intracranial process. 2. Minimal mucoperiosteal thickening the bilateral ethmoid and maxillary sinuses. Reviewed, dictated and finalized at location B. IMPRESSION: 1. Normal brain. No acute intracranial process. 2. Minimal mucoperiosteal thickening the bilateral ethmoid and maxillary sinuse s.
--- OUTSIDE RECORDS SUMMARY | 2025-05-29 10:39 | XMS_ITS | Clinical Summary ---
Author Organization [facility] Address [address] [place] [address] Phone Care Team Providers Care Seaweed Harvester Name Role Phone Unavailable Primary Care Provider [...] place to sleep or slept in a halfway (including now)? 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
--- OUTSIDE RECORDS SUMMARY | 2025-05-29 10:39 | XMS_ITS | Clinical Summary ---
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 Gender Identity Not on file Sexual Orientation [...] SPEC DESCRIPTION CERVIX 04/17/20 3:01 PM CDT [facility] HPV DNA HIGH RISK NEGATIVE NEGATIVE 04/18/2024 1:07 AM CDT [facility] Comment:SEE CYTOLOGY REPORT 04/15/2024 8:00 AM CDT Bj Perry PHOTOGRAPHIC HAND DEVELOPER PATHOLOGY/CYTOLOGY ORDERABLES Final Result [facility] [address] [place] [address], from Last 3 Months or Most Recently Relevant to Health Maintenance Insurance [facility] [place] [id number] Care Teams Regional Sales Consultant Relationship Specialty Start Date End Date Bj Perry FNP [address] [place] [phone] PCP - General Nurse Practitioner Family 02/14/25
--- OUTSIDE RECORDS SUMMARY | 2025-05-29 10:39 | XMS_ITS | Clinical Summary ---
Author Organization [facility] [employer] Address [address] [place] [address] Care Team Providers Care Mixing Machine Feeder Name Role Phone Unavailable Primary Care Provider Unavailabl e Source Comments [facility] [employer],non-owned Affiliates and Associated Physician Practices is amultiple site organization consisting of ambulatory clinics and hospital sitesin [place], [place], [place] and [place]. This disclosure is being madepursuant to the Care Everywhere program and may not contain all information available regarding this patient. Last updated 18.[facility] [employer] Allergies Active Allergy Reactions Criticality Noted Date [...] Name Comments Heart Failure Father Hypertension Father [place] Father Heart Failure Maternal Grandfather Heart Failure Maternal Grandmother Diabetes Mother Heart Failure Mother Heart Surgery Mother Hypertension Mother [place] Mother Migraine Mother Stroke Mother Heart Failure [...] on file Legal Sex Female 4:30 AM LEAD WELDER Gender Identity Not on file Sexual Orientation [...] Documents on File Type Date Recorded Patient Janitor Custodian Expl anation Adv Directive/Living Will/POA 04/16/2013 10:17 [...]
--- NOTE | 2025-05-29 10:46 | ECG_ITS ---
Test Date: 2025-05-29 10:50:39 Measurements Intervals [place] Rate: 68 P: 60 WI: 158 QRS: 56 QRSD: 89 T: 51 QT: 419 QTc: 449 Interpretive Statements SINUS RHYTHM Compared to ECG 08/12/2024 15:05:45 No significant changes Electronically Signed On 06-02-2025 22:36:22 CDT by Lashaun Gutierrez M.D.
[2025-05-29 10:49] LABS: Hematocrit 45.5 % (35.0-49.0); Hemoglobin 14.8 g/dL (12.0-15.0); Immature Granulocyte Percent A 0.4 % (0.0-0.0); Lymphocytes Absolute Auto 2.00 K/mm3 (1.10-4.50); Mean Corpuscular HGB Conc 32.5 g/dL (32-36); Mean Corpuscular Hemoglobin 29.1 pg (27.0-31.0); Mean Corpuscular Volume 89.6 fL (78.0-102.0); Nucleated Red Blood Cells Absolute Auto 0.00 K/mm3 (0.00-0.00); Nucleated Red Blood Cells Perc 0.0 % (0-0.0); Platelet Count Result 248 K/mm3 (150-420); Red Blood Count 5.08 M/mm3 (4.20-5.40); White Blood Count 7.6 K/mm3 (4.8-10.8)
[2025-05-29 11:03] LABS: Hemoglobin A1C. 5.2 % (<5.7)
[2025-05-29 11:15] LABS: Alanine Aminotransferase 25 U/L (6-35); Albumin Level 4.0 g/dL (3.5-5.1); Alkaline Phosphatase 126 U/L (38-126); Anion Gap 4 mmol/L (4-12); Aspartate Amino Transferase 33 U/L (14-36); Bilirubin,Total 1.0 mg/dL (0.2-1.3); Blood Urea Nitrogen 18 mg/dL (7-17); Calcium 9.4 mg/dL (8.4-10.2); Carbon Dioxide 31 mmol/L (22-30); Chloride 104 mmol/L (98-107); Cholesterol 223 mg/dL (0-200); Estimated Glomerular Filt Rate 55; Glucose 96 mg/dL (65-110); HDL Direct 60 mg/dL; Osmolality Calculated 289 mOsm/kg (285-295); Potassium 5.3 mmol/L (3.4-5.0); Sodium 139 mmol/L (137-145); Total Protein 6.8 g/dL (6.3-8.2); Triglycerides 145 mg/dL (<150)
[2025-05-29 11:45] LABS: Thyroid Stimulating Hormone Reflex 4.870 uIU/mL (0.465-4.68)
[2025-05-29 12:27] LABS: Free T4 Free Thyroxine Reflex 1.03 ng/dL (0.78-2.19)
== END 2025-05-29 10:36 | disposition home or self-care (01) ==
PROVIDERS: PCP Nurse Practitioner Family; Visit Provider Nurse Practitioner Family
DX: Z00.00 Encounter for general adult medical examination without abnormal findings (principal); I10 Essential (primary) hypertension; R79.89 Other specified abnormal findings of blood chemistry; R20.2 Paresthesia of skin; R29.810 Facial weakness; H53.8 Other visual disturbances
CPT/HCPCS: 36415; 70450; 70486; 80053; 80061; 83036; 84439; 84443; 85025; 93005

== ENCOUNTER 2025-06-02 13:23 | Outpatient (CLI) | payer OTHER, SELFPAY ==
--- OUTSIDE RECORDS SUMMARY | 2025-06-02 13:28 | XMS_ITS | Clinical Summary ---
Author Organization [facility] Address [address] [place] [address] Phone Care Team Providers Care Unloader Operator Name Role Phone Unavailable Primary Care Provider [...] place to sleep or slept in a fdc (including now)? No 04/13/2022 Comments No Sex and Gender Information Value Date Recorded Sex Assigned at Not on file Legal Sex Female 2:55 AM GLUE SPECIALTY SUPERVISOR Gender Identity Not on file Sexual Orientation [...] (1 of 2) 2018 INFLUENZA VACCINE (#1) 2025 3, 08/16/2013, 01/22/2013, Additional history exists Insurance [employer] (INTERNAL) [facility] Advance Directives For more information, please contact: [phone] * Full Code (Latest Code Status on File) Date Activated Date Inactivated Comments 03/14/2022 8:01 PM 03/15/2022 4:46 PM
--- OUTSIDE RECORDS SUMMARY | 2025-06-02 13:28 | XMS_ITS | Clinical Summary ---
Author Organization [facility] Address [address] [place] [address] Care Team Providers Care Pillowcase Cleaner Name Role Phone Bj Perry RIANNA Primary Care Provider [phone] Allergies Active Allergy Reactions Criticality Noted Date [...] AM CDT Legal Sex Female 12:36 PM AIR ROUTE CONTROLLER Gender Identity Not on file Sexual Orientation [...] SPEC DESCRIPTION CERVIX 04/17/20 3:01 PM CDT [facility] HPV DNA HIGH RISK NEGATIVE NEGATIVE 04/18/2024 1:07 AM CDT [facility] Comment:SEE CYTOLOGY REPORT 04/15/2024 8:00 AM CDT Bj Perry PULLMAN CAR CLERK PATHOLOGY/CYTOLOGY ORDERABLES Final Result [facility] [address] [place] [address], from Last 3 Months or Most Recently Relevant to Health Maintenance Insurance [facility] Care Teams Pillowcase Cleaner Relationship Specialty Start Date End Date Bj Perry FNP [address] [place] [phone] PCP - General Nurse Practitioner Family 02/14/25
--- OUTSIDE RECORDS SUMMARY | 2025-06-02 13:28 | XMS_ITS | Clinical Summary ---
Author Organization [facility] [employer] Address [address] [place] [address] Care Team Providers Care Manager Play Name Role Phone Unavailable Primary Care Provider Unavailabl e Source Comments [facility] [employer],non-owned Affiliates and Associated Physician Practices is amultiple site organization consisting of ambulatory clinics and hospital sitesin [place], [place], [place] and [place]. This disclosure is being madepursuant to the Care Everywhere program and may not contain all information available regarding this patient. Last updated 18.[facility] Allergies Active Allergy Reactions Criticality Noted Date [...] Name Comments Heart Failure Father Hypertension Father [place] Father Heart Failure Maternal Grandfather Heart Failure Maternal Grandmother Diabetes Mother Heart Failure Mother Heart Surgery Mother Hypertension Mother [place] Mother Migraine Mother Stroke Mother Heart Failure [...] on file Legal Sex Female 4:30 AM ROUTER OPERATOR PIN Gender Identity Not on file Sexual Orientation [...] 06/29/2021, 03/05/2021 DEPRESSION SCREENING 11/27/2024 INFLUENZA VACCINE (#1) 2025 3, 08/16/2013, 01/22/2013, Additional history exists HIB VACCINE [...] Documents on File Type Date Recorded Patient Crew Foreman Expl anation Adv Directive/Living Will/POA 04/16/2013 10:17 [...]
[2025-06-02 13:57] LABS: Potassium 3.9 mmol/L (3.4-5.0)
== END 2025-06-02 13:24 | disposition home or self-care (01) ==
LOC: CHSLAB 13:23
PROVIDERS: PCP Nurse Practitioner Family; Visit Provider Nurse Practitioner Family
DX: E87.5 Hyperkalemia (principal)
CPT/HCPCS: 36415; 84132

== ENCOUNTER 2025-06-27 17:32 | Emergency (ER) | payer OTHER, SELFPAY ==
--- NOTE | ~2025-06-27 | CT_ITS ---
EXAMINATION: CT brain wo con DATE: 06/27/2025 18:49 INDICATION: syncope episode . TECHNIQUE: Computed tomography (CT) of the head was performed without intravenous contrast. The mA wa s adjusted according to patient size. Iterative reconstruction technique was employed. The dose-lengt h product was 605.33 mGy-cm. COMPARISON: 05/29/2025; MR brain 08/13/2024. FINDINGS: No acute intracranial hemorrhage or extra-axial fluid collection. No hydrocephalus, mass, or herniation. No acute ischemic infarct. Unremarkable dural venous sinus attenuation. No acute osseous abnormality. The aerated spaces are clear. IMPRESSION: No acute intracranial process. Reviewed, dictated and finalized at location K.
--- NOTE | ~2025-06-27 | XR_ITS ---
EXAMINATION: XR chest 1V portable Exam Date/Time: 06/27/2025 18:45 CDT HISTORY: syncope episode Comparison: None. RESULT: Lines, tubes, and devices: None. Lungs and pleura: Linear basilar atelectasis/scar in the lung bases, otherwise clear. Cardiomediastinal silhouette: Stable. Other: No acute osseous or upper abdominal finding. IMPRESSION: No acute cardiopulmonary process. Reviewed, dictated and finalized at location K.
[2025-06-27 17:34] VITALS: BP 158/97; PULSE 82; RESP 18; TEMP 36.7; O2SAT 100
--- OUTSIDE RECORDS SUMMARY | 2025-06-27 17:39 | XMS_ITS | Clinical Summary ---
Author Organization [facility] Address [address] [place] [address] Phone Care Team Providers Care Heart Coordinator Name Role Phone Unavailable Primary Care Provider [...] on file Legal Sex Female 2:55 AM SPOOLING OPERATOR Gender Identity Not on file Sexual [...] Advance Directives For more information, please contact: [phone] * Full Code (Latest Code Status on File) Date Activated Date Inactivated Comments 03/14/2022 8:01 PM 03/15/2022 4:46 PM
--- OUTSIDE RECORDS SUMMARY | 2025-06-27 17:39 | XMS_ITS | Clinical Summary ---
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 Gender Identity Not on file Sexual Orientation [...] SPEC DESCRIPTION CERVIX 04/17/20 3:01 PM CDT [facility] HPV DNA HIGH RISK NEGATIVE NEGATIVE 04/18/2024 1:07 AM CDT [facility] Comment:SEE CYTOLOGY REPORT 04/15/2024 8:00 AM CDT Bj Perry OUTBOARD SYSTEM OPERATOR PATHOLOGY/CYTOLOGY ORDERABLES Final Result [facility] [address] [place] [address], from Last 3 Months or Most Recently Relevant to Health Maintenance Insurance [facility] Care Teams Hydro Station Supervisor Relationship Specialty Start Date End Date Bj Perry FNP [address] [place] [phone] PCP - General Nurse Practitioner Family 02/14/25
--- OUTSIDE RECORDS SUMMARY | 2025-06-27 17:39 | XMS_ITS | Clinical Summary ---
Author Organization [facility] Address [address] [place] [address] Care Team Providers Care Local Tanker Truck Driver Name Role Phone Unavailable Primary Care Provider Unavailabl e Source Comments [facility],non-owned Affiliates and Associated Physician Practices is amultiple site organization consisting of ambulatory clinics and hospital sitesin [place], [place], [place] and [place]. This disclosure is being madepursuant to the Care Everywhere program and may not contain all information available regarding this patient. Last updated 18.[facility] Allergies Active Allergy Reactions Criticality Noted Date [...] on file Legal Sex Female 4:30 AM DOCKET SPECIALIST Gender Identity Not on file Sexual Orientation [...] Documents on File Type Date Recorded Patient Dress Cap Maker Expl anation Adv Directive/Living Will/POA 04/16/2013 10:17 [...]
--- OUTSIDE RECORDS SUMMARY | 2025-06-27 17:39 | XMS_ITS | Continuity of Care Document ---
Author Organization [facility] Address [address] [place] [address] Phone Care Team Providers Care Museum Informatics Specialist Name Role Phone Noemi INIGUEZ MD, Placido Unavailable Unavailable Advance Directives Directive Yes / No Effective Date File Name No Information Encounters Encounter Description Practice Location Reason(s) For Visit Diagnoses Date Provider Providers Copied on Encounter [facility], [address], [id number], [place] tel:[phone] [facility] No Information Noemi Cummins. [address], [address], [place], [place], [id number] , [place]. tel: [phone] Family History Family Member Type Diagnosis Age At Onset No Information Payers Payer name Insurance type Covered republican ID Authoriza tion(s) No Information Social History Type Description Quantity Date Captured Comments Sex Female Smoking Status No Information Chief Complaint And Reason For Visit No Information Reason For Referral Reason For Referral No Information History Of Present Illness Encounter Date Complaint History Of Prese nt Illness No Information Functional Status Date Functional Assessmen t No Information Instructions Date Instruction Additional Infor mation No Information Assessments Type Assessment Date No Information Patient Care Teams Name Effective Dates (start - stop) Status Members No Information
--- NOTE | 2025-06-27 17:44 | ED.SYNCOPE ---
HPI - Syncope General Chief Complaint: Syncope Stated Complaint: weakness Time Seen by Provider: 06/27/25 17:43 Source: patient Mode of arrival: ambulatory Limitations: no limitations History of Present Illness HPI narrative: patient is a 54-year-old female with syncopal episode at home that lasted 10-20 seconds. Patient was taking a warm shower and came out to stand and put her clothes on and her right rotator cuff injury brace. patient had a right rotator cuff repair a week ago. She is on [place] 5 mg every 4-5 hours. She had syncope and unresponsive for 10-20 seconds and then post syncopal confusion for another few minutes. EMS arrived. No injuries. MD complaint: loss of consciousness, felt faint and collapsed Duration of episode: 15 -: second(s) Description of event: post-event confusion and other ( No seizure activity) Prodromal symptoms: lightheaded Witnessed: Yes - by Bystander ( daughter was in the room with her during the event) Context: at rest ( post shower) Injuries sustained associated with event: none Current symptoms: none History: other ( patient had right shoulder rotator cuff surgery in the past week and using [place] with a syncopal episode today) Treatments prior to arrival: none ( EMS found normal blood sugar and stable vital signs) Related Data Home Medications ?Medication ?Instructions ?Recorded ?Confirmed ?Last Taken ?Type albuterol sulfate 90 mcg/actuation 1 puff inhalation Q4H PRN 08/12/24 06/16/25 10/01/24 History aerosol inhaler Shortness Of Breath Or Wheezing aspirin 81 mg tablet,delayed 81 mg PO DAILY 03/10/25 06/16/25 Unknown History release Allergies Allergy/AdvReac Type Severity Reaction Status Date / Time adhesive Allergy Intermediate Blister Verified 06/10/25 12:05 diphenhydramine (From Allergy Stopped Verified 06/10/25 12:05 Benadryl) Breathing lisinopril AdvReac Mild cough Uncoded 06/10/25 12:05 Review of Systems Review of Systems: All systems reviewed & are unremarkable except as noted in HPI and below Constitutional: Constitutional: Reports no additional constitutional complaints Eyes: Eyes: Reports no additional eye complaints ENT: Reports system reviewed and no additional complaints, except as documented Cardiovascular: Cardiovascular: Reports no additional cardiovascular complaints Respiratory: Respiratory: Reports no additional respiratory complaints Gastrointestinal: Gastrointestinal: Reports no additional gastrointestinal complaints Genitourinary: Genitourinary: Reports no additional female genitourinary complaints Musculoskeletal: Musculoskeletal: Reports no additional musculoskeletal complaints Integumentary/Breasts: Skin/Breast: Reports system reviewed and no additional complaints, except as docu Neurologic: Reports system reviewed and no additional complaints, except as documented Psychiatric: Psychiatric: Reports no additional psychiatric complaints Endocrine: Endocrine: Reports no additional endocrine complaints Hematologic/Lymphatic: Hematologic/Lymphatic: Reports no additional hematologic/lymphatic complaints Allergic/Immunologic: Allergic/Immunologic: Reports no additional allergic/immunologic complaints PMFSH Past Medical History Medical History Hypertension Wrist fracture, bilateral Ankle fracture, left Skull fracture History of heart attack (2008) Migraine Anxiety and depression Surgical History Surgical History History of ovarian cystectomy Right-sided History of cholecystectomy Family History Family History Mother Heart attack Father Heart attack COPD (chronic obstructive pulmonary disease) Grandparent Breast cancer Grandparent Breast cancer Social History Social History Social History: Surrogate medical decision maker: Cori Fulton, daughter Code status: Full code. Smoking status: Never smoker Second hand tobacco smoke exposure: Yes Alcohol intake: never Substance use: never Do You Feel Safe in your Home?: Yes Lack of Transportation: No Lack of Food: Never True Current Housing: I Have Housing Concerned About Future Housing: No Difficulty Paying Gas/Electric Bills: No Difficulty Paying for Meds: No Currently Unemployed: No Education: High School Diploma/GED Difficulty w/ Childcare or Family Care: No Spiritual care concerns: No Exam Const: General: healthy appearing Nutritional Appearance: well nourished Orientation/consciousness: patient oriented x3 HENMT: Head: normal to inspection Ears: external ears normal Face/Nose/Sinus: Normal external nose present Eyes: Conjunctivae: conjunctivae normal Pupils: Equal, round and reactive pupils present EOM: EOMs intact bilaterally Neck: Neck: normal visual inspection Chest: Chest palpation & inspection: normal inspection of the chest Resp: Effort & Inspection: normal respiratory effort and not labored Auscultation: clear to auscultation bilaterally and no crackles Cardio: Rate: regular rate Rhythm: regular rhythm Heart sounds: no murmurs GI: Inspection: non-distended GI Palp: Yes Soft to palpation and No Tenderness to palpation present (GI) Auscultation: normal bowel sounds : General: Yes bladder normal to palpation Back/Spine/Pelvis: Back: no CVA tenderness Skin: General skin exam: normal color Rashes: no rashes Wounds: no wounds Neuro: General: patient oriented x3, moves all extremities, no meningeal signs, no focal motor deficits and CN's II-XI intact bilaterally Cranial nerves: Yes Nystagmus not present Speech: normal speech Gait exam (Neuro): Normal gait present Other: fast exam negative, NIH score is 0, GCS is 15 Extrem: General: normal to inspection Psych: Mental Status: mental status grossly normal Affect: normal affect Attitude: cooperative Course Vital Signs Vital signs: Vital Signs Temperature 36.7 C 06/27/25 17:34 Pulse Rate 82 06/27/25 17:34 Respiratory Rate 18 06/27/25 17:34 Blood Pressure 158/97 H 06/27/25 17:34 Pulse Oximetry 100 06/27/25 17:34 Oxygen Delivery Room Air 06/27/25 17:34 Temperature 36.7 C 06/27/25 17:34 Pulse Rate 82 06/27/25 17:34 Respiratory Rate 18 06/27/25 17:34 Blood Pressure 158/97 H 06/27/25 17:34 Pulse Oximetry 100 06/27/25 17:34 Oxygen Delivery Room Air 06/27/25 17:34 MDM - Syncope MDM Narrative Medical decision making narrative: patient is a 54-year-old female with syncopal episode. We have been having difficulties trying to get IV and blood access. We will continue to gain access but patient would like to go AMA if we cannot achieve access soon. Goal is to do a workup. CT head and UA and chest x-ray can be done otherwise. I explained to the patient that she is very dehydrated and UTI per the urinalysis. After multiple nurse tries for IVs, on successful ability to get an IV placement. Also lab was unable to get IV/blood. Patient has decided to go AMA understanding that the UA shows dehydration and UTI. I told her I would work with her and get her at least treated for the UTI. Further she needs to drink plenty and lots of water. Patient understands the risks and benefits of AMA versus staying at the hospital. Patient has mental making capacities to decide AMA at this time. She is AAO x4. Patient wants to go home to get her pain medicine even though we offered pain medicine at this time. She understands the benefits of further IV attempts especially by the doctor but declined at this time. She understands treatment options but has declined to stay at this time. AMA form signed. Lab Data Attestation: I reviewed the patient's lab results. Labs: Lab Results 06/27/25 Range/Units 18:50 Urine Color Light yellow (Yellow) Urine Appearance Clear (Clear) Urine pH 6.0 (5.0-8.0) Ur Specific [place] 1.015 (1.010-1.020) Urine Protein Negative (Negative) Urine Glucose (UA) Negative (Negative) Urine Ketones Negative (Negative) Ur Blood (Man) Trace-intact H (Negative) Urine Nitrate Negative (Negative) Urine Bilirubin Negative (Negative) Urine Urobilinogen 1.0 (0.2-1.0) mg/dL Leukocyte Esterase Rfl 3+ H (Negative) JUAN FRANCISCO/UL Urine RBC 0-2 (0-2) /hpf Urine WBC >75 H (0-3) /hpf Urine WBC Clumps Present H (None) /hpf Ur Squamous Epith Cells Many H (Few) /hpf Amorphous Sediment Heavy H (None) Urine Bacteria 4+ H (None) /hpf Hyaline Casts 15-19 H (None) /lpf Granular Casts 10-14 H (None) /lpf Urine Mucus Heavy H /lpf Imaging Data Attestation: I personally reviewed and interpreted this imaging study as follows: Radiologist's impression: Chest x-ray is negative for acute process CT scan of the brain is negative for acute process ECG Data EKG #1: Attestation: I personally reviewed and interpreted this ECG as follows: ECG completion date: 06/27/25 ECG completion time: 19:47 EKG Interpretation: normal rate, sinus rhythm, no ectopy, non-specific ST changes, normal QRS, normal QT and NL axis Discharge Plan Discharge Clinical Impression: Acute dehydration UTI (urinary tract infection) Qualifiers: Urinary tract infection type: site unspecified Hematuria presence: with hematuria Qualified Code(s): N39.0 - Urinary tract infection, site not specified Syncope Qualifiers: Syncope type: unspecified Qualified Code(s): R55 - Syncope and collapse Patient Disposition: Left Against Medical Advice Condition: Stable Patient Language: Malaysian Prescriptions: New ciprofloxacin HCl [Cipro] 500 mg tablet 500 mg PO BID 7 Days Qty: 14 0RF No Action aspirin 81 mg tablet,delayed release (DR/EC) 81 mg PO DAILY atenolol 50 mg tablet 50 mg PO DAILY 90 Days Qty: 90 1RF diclofenac sodium 3 % gel 1 applic topical BID PRN (Reason: pain (scale score 4-6)) Qty: 100 0RF alprazolam 1 mg tablet 1 mg PO QHS PRN (Reason: anxiety) Qty: 20 0RF topiramate 50 mg tablet 50 mg PO BID Qty: 60 2RF rizatriptan 10 mg tablet See Rx Instructions PO .COMPLEX Qty: 14 0RF Rx Instructions: take 1 tab at onset of headache; if no relief may repeat 1 tab after at least 2 hrs; max = 3 tabs/24 hr PO cyclobenzaprine 10 mg tablet 10 mg PO TID PRN (Reason: muscle spasm) Qty: 1 0RF amlodipine 10 mg tablet 10 mg PO DAILY Qty: 90 1RF aspirin 81 mg capsule 81 mg PO DAILY Qty: 90 1RF atorvastatin 40 mg tablet 40 mg PO DAILY Qty: 90 1RF buspirone 7.5 mg tablet 7.5 mg PO BID 90 Days Qty: 180 1RF hydrochlorothiazide 12.5 mg tablet 12.5 mg PO QHS Qty: 90 1RF Rx Instructions: please take care with positional changes losartan 100 mg tablet 100 mg PO DAILY Qty: 90 1RF escitalopram oxalate 10 mg tablet 10 mg PO DAILY 90 Days Qty: 90 1RF hydralazine 50 mg tablet 50 mg PO BID 30 Days Qty: 60 2RF hydrocodone-acetaminophen 7.5-325 mg tablet 1 tablet PO QHS PRN (Reason: pain) Qty: 20 0RF albuterol sulfate 90 mcg/actuation HFA aerosol inhaler 1 puff inhalation Q4H PRN (Reason: Shortness Of Breath Or Wheezing) Rx Instructions: INHALE 1 PUFF BY MOUTH EVERY 4 HOURS NEEDED FOR SHORTNESS OF BREATH OR WHEEZING Follow-up/Referrals: Bj Perry APRN [Primary Care Provider] - Time of Disposition: 20:49
--- OUTSIDE RECORDS SUMMARY | 2025-06-27 17:55 | XMS_ITS | Continuity of Care Document ---
Author Organization [facility] Address [address] [place] [address] Phone Care Team Providers Care Boarding Mother Name Role Phone Noemi INIGUEZ MD, Placido Unavailable Unavailable Advance Directives Directive Yes / No Effective Date File Name No Information Encounters Encounter Description Practice Location Reason(s) For Visit Diagnoses Date Provider Providers Copied on Encounter [facility], [address], [id number], [place] tel:[phone] [facility] No Information Noemi Cummins. [address], [place], [place], [id number] , [place]. tel: [phone] Family History Family Member Type Diagnosis Age At Onset No Information Payers Payer name Insurance type Covered constitution party ID Authoriza tion(s) No Information Social History [...]
--- NOTE | 2025-06-27 18:07 | ECG_ITS ---
Test Date: 2025-06-27 18:23:38 Measurements Intervals [place] Rate: 73 P: 51 MN: 166 QRS: 46 QRSD: 71 T: 42 QT: 382 QTc: 421 Interpretive Statements SINUS RHYTHM LOW QRS VOLTAGE IN PRECORDIAL LEADS BASELINE ARTIFACT- I, II, III, AVR, AVL, AVF, V1-V6 BORDERLINE ECG Compared to ECG 05/29/2025 10:50:39 Low QRS voltage now present Electronically Signed On 06-27-2025 19:20:03 CDT by Dereje Cabello D.O.
--- NOTE | 2025-06-27 18:29 | PC.NURSE ---
Pt states she would not like to be poked any more than necessary, and would rather try to increase oral intake instead of IV fluids. Pt educated on importance and pt demonstrates understanding. Pt will be given PO fluids after labwork reviewed.
[2025-06-27 19:10] LABS: Add Urine Microscopic? YES; Appearance Urine Clear (Clear); Glucose Urine UA Negative (Negative); Leukocyte Esterase Ur 3+ LEU/UL (Negative); Nitrate Urine Negative (Negative); Specific Grav Ur 1.015 (1.010-1.020)
--- NOTE | 2025-06-27 20:02 | PC.NURSE ---
Multiple attempts made by 4 different RNs. Unable to successfully start IV on pt.
[2025-06-27] MEDS: CIPROFLOXACIN 500 MG TAB PO (20:54)
[2025-06-27 21:10] VITALS: BP 145/89; PULSE 81; RESP 17; TEMP 36.7; O2SAT 100
--- NOTE | 2025-07-04 13:23 | PC.NURSE ---
Preliminary blood culture report; gram negative bacilli isolated. Patient left AMA but was sent cipro to pharmacy, will wait final culture and sensitivity per erp Dr. Morris.
== END 2025-06-27 21:10 | disposition left against medical advice (07) ==
PROVIDERS: Emergency Provider Emergency Medicine; PCP Nurse Practitioner Family
DX: E86.0 Dehydration (principal); N39.0 Urinary tract infection, site not specified; R55 Syncope and collapse; I10 Essential (primary) hypertension; I25.2 Old myocardial infarction
CPT/HCPCS: 70450; 71045; 81001; 93005; 96360; 99284; A9270

== ENCOUNTER 2025-07-14 08:47 | Outpatient (RCR) | payer OTHER, MEDICAID, SELFPAY ==
--- NOTE | 2025-07-08 08:29 | PCPTNOTE ---
Patient called & cancelled scheduled appointment this date due to feeling sick. -Cherie Rolon, PT
--- NOTE | 2025-07-14 10:07 | OPREHPOC ---
Outpatient Therapy Plan of Care This is a Multidisciplinary Plan of Care that may contain components documented by all disciplines (PT, OT, and ST.) PT Problem 1 PT Problem #1 Knowledge Deficit PT Goal 1 Goal / Goal Update Independent and compliant with HEP. Target Visit 2 PT Problem 2 PT Problem #2 Pain PT Goal 1 Goal / Goal Update Pt to report no worst than 2/10 R shoulder pain at rest. Target Visit 12 PT Problem 3 PT Problem #3 Impaired Range of Motion PT Goal 1 Goal / Goal Update Pt to achieve full PROM of the R shoulder without pain. Target Visit 12 PT Goal 2 Goal / Goal Update Pt to reach 90 deg active shoulder elevation in the scapular plane. Target Visit 24 PT Problem 4 PT Problem #4 Impaired Strength PT Goal 1 Goal / Goal Update Pt to improve R shoulder strength to 4/5 for dynamic stabilization of the shoulder for functional tasks. Target Visit 36 PT Problem 5 PT Problem #5 Impaired Functional Mobility PT Goal 1 Goal / Goal Update Pt to report 30% or less perceived disability on Quick DASH. Pt to transition to sleeping in bed full-time without needing to move to the recliner. Target Visit 24
--- NOTE | 2025-07-14 10:07 | PTOPEVAL1 ---
Assessment and note entered by Mony Limon, PT Evaluation Information Assessment Status Evaluation Diagnosis S/p R shoulder RCR and biceps tenodesis ICD-10 Condition Codes (PT) Pain in right shoulder M25.511 Onset 06/24/2025 Subjective Information Pt reports she had shoulder surgery on 06/24/25 and recently saw the surgeon who looked at her incisions and gave her a new sling. 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 This fall resulted in her tearing her rotator cuff and bicep mm on the R arm. She sees the surgeon again on Jul 30. She notes significant sleep impairment and reports she only sleeps for an hour and a half at a time and wakes up frequently due to pain. Reported Pain Level Pain Score 4: Self Report Assessment PT Clinical Summary Mrs. Fulton is a 54 yo female presenting to skilled PT evaluation following R RCR and biceps tenodesis on 06/24/2025. She presents with significant functional and sleep impairments due to inability to actively move the R arm per protocol, and PROM is greatly limited by pain this date. She will benefit from skilled PT intervention per protocol to address R shoulder range of motion and pain reduction before transitioning to next phase of protocol. Plan of Care Interventions Electrical Stimulation,Hot Pack/Cold Pack,Manual Therapy,Neuro Re-education,Patient/Caregiver Education,Therapeutic Activities,Therapeutic Exercise,Self-Care/Home Management PT Services Indicated Yes Treatment Frequency and 2x/week for 12 visits Duration These treatments will address the objective and functional deficits as defined above. The patient will be advanced safely and appropriately in order for the patient to progress towards his/her prior level of function. Additional exercises will be introduced and as well as a comprehensive home exercise program upon discharge, if needed, ?to ensure carryover of functional gains achieved in the clinic. This treatment plan has been reviewed and agreement upon by the patient.
--- NOTE | 2025-08-26 10:12 | OPREHPOC ---
Outpatient Therapy Plan of Care This is a Multidisciplinary Plan of Care that may contain components documented by all disciplines (PT, OT, and ST.) PT Problem 1 PT Problem #1 Knowledge Deficit PT Goal 1 Goal / Goal Update Independent and compliant with HEP. Target Visit 2 Progress Met PT Goal 2 Goal / Goal Update continue to progress PT Problem 2 PT Problem #2 Pain PT Goal 1 Goal / Goal Update Pt to report no worst than 2/10 R shoulder pain at rest. Target Visit 12 Progress Not Met PT Goal 2 Goal / Goal Update continue Target Visit 24 PT Problem 3 PT Problem #3 Impaired Range of Motion PT Goal 1 Goal / Goal Update Pt to achieve full PROM of the R shoulder without pain. -not met, continue Target Visit 12 Progress Not Met PT Goal 2 Goal / Goal Update Pt to reach 90 deg active shoulder elevation in the scapular plane. -not met, continue Target Visit 24 Progress Not Met PT Problem 4 PT Problem #4 Impaired Strength PT Goal 1 Goal / Goal Update Pt to improve R shoulder strength to 4/5 for dynamic stabilization of the shoulder for functional tasks. -not met, continue Target Visit 36 Progress Not Met PT Problem 5 PT Problem #5 Impaired Functional Mobility PT Goal 1 Goal / Goal Update Pt to report 30% or less perceived disability on Quick DASH. Pt to transition to sleeping in bed full-time without needing to move to the recliner. Target Visit 24
--- NOTE | 2025-08-26 10:12 | PTOPPROG ---
Assessment and note entered by Cherie Rolon, PT Evaluation Information Assessment Status Progress Diagnosis s/p R shoulder RCR and biceps tenodesis ICD-10 Condition Codes (PT) Pain in right shoulder M25.511 Onset 06/24/2025 Subjective Information Kimberlyn Fulton reports she woke up to a pop in the right shoulder on 08/23/25 and she has had more pain since then. She is unsure if she was laying on her side, she did have pillows behind her to support the arm. She also notes it is more painful to let her arm hang at her side now. She reports pain was improved overall until 08/23/25 and she continues to have no pain at rest and mild pain with activity. She is under restrictions of only writing, typing, and answering phones for work. Her employer is unable to accomodate those restrictions so she is not working. 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 Assessment PT Clinical Summary Kimberlyn uFlton is 9 weeks s/p R RCR and biceps tenodesis on 06/24/2025. She has completed 12 skilled PT visits. She reports overall her pain is improving but she woke up from a pop in her shoulder on 08/23/25 and has been having more pain since then. She continues to have no pain at rest and mild to moderate pain with activity. She demonstrates improved right shoulder and elbow active and passive ROM. She continues to have deficits in right shoulder active and passive ROM, decreased right shoulder strength, and decreased functional mobility and ability. 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 She will continue to benefit from skilled PT intervention per protocol to address R shoulder range of motion and strength. Plan of Care Interventions Electrical Stimulation,Hot Pack/Cold Pack,Neuro Re -education,Patient/Caregiver Education,Therapeutic Exercise,Self-Care/Home Management PT Services Indicated Yes Treatment Frequency and Continue skilled PT 2x/week for 12 visits Duration These treatments will address the objective and functional deficits as defined above. The patient will be advanced safely and appropriately in order for the patient to progress towards his/her prior level of function. Additional exercises will be introduced and as well as a comprehensive home exercise program upon discharge, if needed, ?to ensure carryover of functional gains achieved in the clinic. This treatment plan has been reviewed and agreement upon by the patient.
--- NOTE | 2025-08-28 08:42 | PCPTNOTE ---
Patient called & cancelled scheduled appointment this date due having no ride.
--- NOTE | 2025-09-18 17:17 | PTOPPROG ---
Assessment and note entered by Mony Limon, PT Evaluation Information Assessment Status Progress Diagnosis s/p R shoulder RCR and biceps tenodesis ICD-10 Condition Codes (PT) Pain in right shoulder M25.511 Onset 06/24/2025 Subjective Information Helen enters the clinic today in significant pain. She reports she was doing very well with PT and was at nearly full AROM and had also started light strengthening. However over the weekend she did something and now her pain is 10/10, and she states it's even worse pain than she felt initially post-op. She reports she hasn't been able to use her arm at all since Monday. Assessment PT Clinical Summary Mrs. Fulton presents for her 17th skilled PT visit this date with new onset of R shoulder pain. She demonstrates a reduction in strength and AROM of the R shoulder and was not able to tolerate any movement of the arm including pendulums this date, whereas she was she was previously responding well to therapy. Pt has a scheduled follow up with her surgeon on Monday and we will hold therapy at this time pending this appointment. Plan of Care Interventions Electrical Stimulation,Hot Pack/Cold Pack,Neuro Re -education,Patient/Caregiver Education,Therapeutic Exercise,Self-Care/Home Management PT Services Indicated Yes Treatment Frequency and Hold therapy at this time pending MD follow up Duration These treatments will address the objective and functional deficits as defined above. The patient will be advanced safely and appropriately in order for the patient to progress towards his/her prior level of function. Additional exercises will be introduced and as well as a comprehensive home exercise program upon discharge, if needed, ?to ensure carryover of functional gains achieved in the clinic. This treatment plan has been reviewed and agreement upon by the patient.
--- NOTE | 2025-09-25 09:52 | PCPTNOTE ---
Patient called & cancelled scheduled appointment this date due per doctor request.
== END 2025-09-18 20:00 | disposition still patient (30) ==
LOC: CHSPT 08:47
DX: M25.511 Pain in right shoulder (principal); Z98.890 Other specified postprocedural states
CPT/HCPCS: 97014; 97110; 97112; 97150; 97161; G0283

== ENCOUNTER 2025-10-27 15:25 | Outpatient (CLI) | payer MEDICAID, SELFPAY ==
--- NOTE | ~2025-10-27 | XR_ITS ---
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 Findings: No acute fracture or malalignment. Large calcaneal spur. Moderate Achilles enthesopathy. Soft tissues unremarkable. Impression: No acute fracture or malalignment. Reviewed, dictated and finalized at location P. NG ROOM SUPERVISOR Impression: No acute fracture or malalignment.
--- OUTSIDE RECORDS SUMMARY | 2025-10-27 15:55 | XMS_ITS | Clinical Summary ---
Author Organization [facility] Address [address] [place] [address] Phone Care Team Providers Care Customer Care Professional Name Role Phone Unavailable Primary Care Provider [...] mortgage or rent on time? Yes 04/13/2022 In the past 12 months, how m any times have you moved where you were living? 1 04/13/2022 At any time in the past 12 m [facility], were you homeless or living in a jail (including now)? 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
--- OUTSIDE RECORDS SUMMARY | 2025-10-27 15:55 | XMS_ITS | Clinical Summary ---
Author Organization [facility] Address [address] [place] [address] Care Team Providers Care Stone Sandblaster Name Role Phone Unavailable Primary Care Provider Unavailabl e Source Comments [facility],non-owned Affiliates and Associated Physician Practices is amultiple site organization consisting of ambulatory clinics and hospital sitesin [place], [place], [place] and [place]. This disclosure is being madepursuant to the Care Everywhere program and may not contain all information available regarding this patient. 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
--- OUTSIDE RECORDS SUMMARY | 2025-10-27 15:55 | XMS_ITS | Clinical Summary ---
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 Gender Identity Not on file Sexual Orientation [...] Date Last Done Comments Cervical Cancer Screening Pap Smear (Age 30 to 64) Every 3 Years 1968 Colorectal Cancer Screening Colonoscopy (10 Years) 1968 Annual Physical 1971 Hepatitis C 1986 DTaP, Tdap and Td Vaccines (1 - Tdap) 1987 Hepatitis B Vaccines (1 of 3 - 19+ 3-dose series) 1987 Mammogram Screening 2008 Pneumococcal Vaccine: 50+ Years (1 of 1 - PCV) 2018 03/09/2009 Zoster Vaccines (1 of 2) 2018 COVID-19 Vaccine ( season) 2025 Influenza Adult (#1) 2025 09/27/2013, 08/16/2013, 01/22/2013, Additional history exists Cervical Cancer Screening Pap with HPV Testing (Age 30 to 64) Every 5 Years 04/15/2029 04/15/2024 Cervical Cancer Screening with HPV 04/15/2029 Hepatitis A Vaccines Aged Out No long er eligible based on patient's age to complete this topic Meningococcal B Vaccine Aged Out No l [...] SPEC DESCRIPTION CERVIX 04/17/20 3:01 PM CDT [facility] HPV DNA HIGH RISK NEGATIVE NEGATIVE 04/18/2024 1:07 AM CDT [facility] Comment:SEE CYTOLOGY REPORT 04/15/2024 8:00 AM CDT Bj Perry GRIPS PATHOLOGY/CYTOLOGY ORDERABLES Final Result [facility] [address] [place] [address], [place] [phone] from Last 3 Months or Most Recently Relevant to Health Maintenance Insurance [facility] Care Teams Breed To Wean Production Technician Relationship Specialty Start Date End Date Bj Perry FNP [address] [place] [phone] PCP - General Nurse Practitioner Family 02/14/25
== END 2025-10-27 15:26 | disposition home or self-care (01) ==
LOC: CHSIMG 15:27
PROVIDERS: PCP Nurse Practitioner Family; Visit Provider Nurse Practitioner Family
DX: M25.571 Pain in right ankle and joints of right foot (principal)
CPT/HCPCS: 73610

== ENCOUNTER 2025-11-17 14:24 | Outpatient (CLI) | payer MEDICAID, SELFPAY ==
[2025-11-17 14:42] LABS: Hematocrit 44.1 % (35.0-49.0); Hemoglobin 14.4 g/dL (12.0-15.0); Immature Granulocyte Percent A 0.5 % (0.0-0.0); Lymphocytes Absolute Auto 2.42 K/mm3 (1.10-4.50); Mean Corpuscular HGB Conc 32.7 g/dL (32-36); Mean Corpuscular Hemoglobin 28.8 pg (27.0-31.0); Mean Corpuscular Volume 88.2 fL (78.0-102.0); Nucleated Red Blood Cells Absolute Auto 0.00 K/mm3 (0.00-0.00); Nucleated Red Blood Cells Perc 0.0 % (0-0.0); Platelet Count Result 280 K/mm3 (150-420); Red Blood Count 5.00 M/mm3 (4.20-5.40); White Blood Count 8.9 K/mm3 (4.8-10.8)
[2025-11-17 14:46] LABS: Add Urine Microscopic? YES; Appearance Urine Clear (Clear); Glucose Urine UA Negative (Negative); Leukocyte Esterase Ur 2+ LEU/UL (Negative); Nitrate Urine Negative (Negative); Specific Grav Ur 1.010 (1.010-1.020)
[2025-11-17 15:15] LABS: Alanine Aminotransferase 32 U/L (6-35); Albumin Level 4.6 g/dL (3.5-5.1); Alkaline Phosphatase 131 U/L (38-126); Anion Gap 10 mmol/L (4-12); Aspartate Amino Transferase 37 U/L (14-36); Bilirubin,Total 0.8 mg/dL (0.2-1.3); Blood Urea Nitrogen 19 mg/dL (7-17); Calcium 9.7 mg/dL (8.4-10.2); Carbon Dioxide 28 mmol/L (22-30); Chloride 104 mmol/L (98-107); Cholesterol 212 mg/dL (0-200); Estimated Glomerular Filt Rate 41; Glucose 85 mg/dL (65-110); HDL Direct 68 mg/dL; Iron 63 ug/dL (37-170); Osmolality Calculated 295 mOsm/kg (285-295); Potassium 4.2 mmol/L (3.4-5.0); Sodium 142 mmol/L (137-145); Total Protein 7.5 g/dL (6.3-8.2); Triglycerides 148 mg/dL (<150)
[2025-11-17 15:23] LABS: NT Pro B Type Natriuretic Pept 39 pg/mL (19.9-100)
[2025-11-17 15:24] LABS: Percent Iron Saturation 21 % (20-50)
[2025-11-17 15:46] LABS: Thyroid Stimulating Hormone Reflex 2.560 uIU/mL (0.465-4.68)
--- OUTSIDE RECORDS SUMMARY | 2025-11-17 16:14 | XMS_ITS | Clinical Summary ---
Author Organization [facility] Address [address] [place] [address] Care Team Providers Care Sofa Cover Inspector Name Role Phone Unavailable Primary Care Provider Unavailabl e Source Comments [facility],non-owned Affiliates and Associated Physician Practices is amultiple site organization consisting of ambulatory clinics and hospital sitesin [place], [place], [place] and [place]. This disclosure is being madepursuant to the Care Everywhere program and may not contain all information available regarding this patient. 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
--- OUTSIDE RECORDS SUMMARY | 2025-11-17 16:15 | XMS_ITS | Clinical Summary ---
Author Organization [facility] Address [address] [place] [address] Phone Care Team Providers Care Twister Operator Name Role Phone Unavailable Primary Care [...] any time in the past 12 m [facility], were you homeless or living in a nursing home (including now)? 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
--- OUTSIDE RECORDS SUMMARY | 2025-11-17 16:15 | XMS_ITS | Clinical Summary ---
Author Organization [facility] Address [address] [place] [address] Care Team Providers Care Medical Program Specialist Name Role Phone Bj Perry RIANNA Primary Care Provider [phone] Allergies Active Allergy Reactions Criticality Noted Date [...] ligament of right ankle, initial encounter 01/19/2023 Encounters Date Type Department Care Team Description 11/10/2025 Telephone [facility] [address] [place] [id number] Paulino Hahn, KRISTINA Question; Results 11/06/2025 2:55 PM HEAD ESTHETICIAN - 11/06/2025 11:59 PM HEAD ESTHETICIAN Hospital Encounter [facility] [address] [place] [address] Paulino Hahn, KRISTINA Discharge Disposition: Home or Self Care (Routine Discharge) 11/06/2025 Travel 11/03/2025 8:40 AM HEAD ESTHETICIAN Office Visit [facility] [address], [place] [address] Paulino Hahn, KRISTINA New Patient (Pain in right heel & ankle. Pain for about 2 weeks. If walking on it pain is 8 out of 10. ) 11/03/2025 Travel from Last 3 Months Family History Medical History Relation Comments COPD [...] AM CDT Legal Sex Female 12:36 PM HEAD ESTHETICIAN Gender Identity Not on file Sexual Orientation Not on file Last Filed Vital Signs Vital Sign Reading Time Taken Comments Blood Pressure 136/84 11/03/2025 8:51 AM HEAD ESTHETICIAN Pulse 85 11/03/2025 8:51 AM HEAD ESTHETICIAN Temperature 36.2 C (97.2 F) 02/14/2025 11:48 AM CDT Respiratory Rate 14 02/14/2025 11:48 AM CDT Oxygen Saturation 97% 11/03/2025 8:51 AM HEAD ESTHETICIAN Inhaled Oxygen Concentration - - Weight 94.9 kg (209 lb 3.2 oz) 11/03/2025 8:51 A M HEAD ESTHETICIAN Height 160 cm (5' 3) 02/14/2025 11:48 AM CDT Body Mass Index 37.06 02/14/2025 11:48 AM CDT Plan of Treatment [...] 03/09/2009 Zoster Vaccines (1 of 2) 2018 PHQ-2 (Physician Brooks) 11/27/2024 COVID-19 Vaccine ( - season) 2025 Influenza Adult (#1) 2025 09/27/2013, [...] SPEC DESCRIPTION CERVIX 04/17/20 3:01 PM CDT [facility] HPV DNA HIGH RISK NEGATIVE NEGATIVE 04/18/2024 1:07 AM CDT [facility] Comment:SEE CYTOLOGY REPORT 04/15/2024 8:00 AM CDT Bj BLANCA PATHOLOGY/CYTOLOGY ORDERABLES Final Result [facility] [address] [place] [address], from Last 3 Months or Most Recently Relevant to Health Maintenance Insurance MEDICAID Care Teams Medical Program Specialist Relationship Specialty Start Date End Date Bj Perry FNP [address] [place] [phone] PCP - General Nurse Practitioner Family 02/14/25
== END 2025-11-17 14:25 | disposition home or self-care (01) ==
PROVIDERS: PCP Nurse Practitioner Family; Visit Provider Nurse Practitioner Family
DX: I25.2 Old myocardial infarction (principal); E78.5 Hyperlipidemia, unspecified; I10 Essential (primary) hypertension; R42 Dizziness and giddiness; N30.00 Acute cystitis without hematuria; R00.2 Palpitations; R82.90 Unspecified abnormal findings in urine
CPT/HCPCS: 36415; 80053; 80061; 81001; 83540; 83550; 83880; 84443; 85025; 87086